=== PATIENT | female | born 1945 | race Caucasian/White ===

== ENCOUNTER 2017-10-30 13:27 | Inpatient (IN) ==
[2017-10-30] MEDS ORDERED: Aminoglycoside Consult 1 EACH MC ONE (14:56)
[2017-10-30] MEDS ORDERED: *HR* LORazepam 2 MG/ML VIAL IVP PRN (16:04)
[2017-10-30] MEDS ORDERED: Dextrose Gel 15 GM/37.5 ML TUBE PO PRN ×2 (16:08)
[2017-10-30] MEDS ORDERED: *HR* Dextrose 50 % in Water (Syg) 50 ML SYRINGE IVP PRN (16:08)
[2017-10-30] MEDS ORDERED: D5% in Water 1,000 ML IVC PRN (16:08)
[2017-10-30 16:14] LABS: INR 1.8; Prothrombin Time 19.5 Seconds (9.4-12.1)
[2017-10-30 16:17] LABS: Activated Partial Thrombo Time 27.1 Seconds (26.0-36.0)
--- NOTE | 2017-10-30 16:27 | Internal Med History&Physical ---
Date of Encounter: 10/30/17 Time of Encounter: 15:27 Internal Medicine - H&P: HPI Admitted From: Intrahospital Transfer Plans for Post Hospital Care: Home History of present illness: Ms. Willis is a 72 year old woman transferred from [facility] ER with worsening SOB and a RLL PNA and large right pleural effusion. She has been afebrile but has a WBC > 27K and desaturating into the 80s on RA. Her symptoms began almost one week ago and she went to Urgent care over the weekend and was given a prescription for an antibiotic but was unable to fill it because her pharmacy was closed for the weekend. Her sob was must worse today propting her to go to the ER. She was started on Levaquin prior totransfer. Her LA is elevated (3.1) and her initial troponin is also mildly elevated 0.11. Currently she is on BiPAP and awaiting a CT-Chest to further evaluate her rt-sided PNA/ Effusion. Past Med Surg Social Fam HX - Past Medical History Medical history: asthma, diabetes, GERD, hypertension, other Psychiatric history: no psych history - Social History Smoking Status: Former smoker Smokeless Tobacco Status: No Alcohol use: none Drug use: none - Family History Brother Hx Family Cardiac Disorders: Yes Internal Medicine - H&P: Meds Benzonatate [Tessalon] 100 mg PO TID #20 capsule 10/28/17 [Rx] Clindamycin [Cleocin] 300 mg PO TID #50 capsule 10/28/17 [Rx] Albuterol Neb [Proventil Neb] 2.5 mg IH Q6H PRN 10/30/17 [History] Albuterol Sulfate [Albuterol Inhaler] 2 puff IH QID PRN 10/30/17 [History] Aspirin [Lo-Dose Aspirin EC] 81 mg PO DAILY 10/30/17 [History] Cholecalciferol (Vitamin D3) [Vitamin D3] 5,000 unit PO QWEEK 10/30/17 [History] Liraglutide [Victoza 3-Kelvin] 1.2 mg PO DAILY 10/30/17 [History] Lisinopril 2.5 mg PO DAILY 10/30/17 [History] Meclizine HCl [Verticalm] 25 mg PO DAILY PRN 10/30/17 [History] Ranitidine HCl [Acid Food Service Lead] 150 mg PO BID PRN 10/30/17 [History] Sertraline [Zoloft] 50 mg PO DAILY 10/30/17 [History] methylPREDNISolone [Medrol] 4 mg PO PER PKG DI 10/30/17 [History] 3 Allergy/AdvReac Type Severity Reaction Status Date / Time Amoxicillin [From Augmentin] Allergy Rash Verified 10/30/17 10:40 azithromycin Allergy Hives Verified 10/30/17 10:40 cephalexin Allergy Rash Verified 10/30/17 10:40 clavulanic acid Allergy Rash Verified 10/30/17 10:40 [From Augmentin] doxycycline Allergy Rash Verified 10/30/17 10:40 omeprazole Allergy Rash Verified 10/30/17 10:40 All Systems PM: A 10-system review of systems was performed and is negative for pertinent findings except as documented above in the HPI. - Constitutional Constitutional: chills, malaise, no fever(s) - EENT Eyes: no blurry vision, no diplopia, no pain Nose, mouth and throat: mouth lesions, no dry mouth, no epistaxis, no mouth pain , no sore throat - Cardiovascular Cardiovascular ROS IM: no chest pain, no diaphoresis, no palpitations - Musculoskeletal Musculoskeletal ROS IM: no joint swelling, no myalgias - Integumentary Integumentary IM: no rash, no unusual bruising - Neurological Neurological ROS: no abnormal speech, no behavioral changes, no vertigo, no weakness - Psychiatric Psychiatric: no mood swings, no paranoia - Constitutional Vitals: Temp Pulse Resp BP Pulse Ox 98.0 F 110 21 177/91 96 10/30/17 15:00 10/30/17 15:00 10/30/17 15:30 10/30/17 15:30 10/30/17 15:30 General appearance: Present: cooperative, mild distress, A&O X 3 - Head Head exam: Present: atraumatic, normocephalic - Neck Neck exam general surgery: Present: supple, trachea midline. Absent: lymphadenopathy, nuchal rigidity - Respiratory Respiratory exam: Present: decreased breath sounds, CTAB. Absent: accessory muscle use, rales, rhonchi, wheezes Additional comments: Decreased breath sounds on right from mid-lung field down. - Cardiovascular Cardiovascular exam: Present: +S1, +S2, tachycardia. Absent: diastolic murmur, gallop, irregular rhythm, rubs, systolic murmur - GI/Abdominal GI/Abdominal exam: Present: normal bowel sounds, soft, no peritoneal signs. Absent: distended, firm, guarding, rigid, tenderness - External exam: Absent: ecchymosis, erythema - Assessment and plan (1) Right lower lobe pneumonia Current Visit: Yes Status: Acute Assessment and plan: Adm to ICU Broaden Abx coverage to Levaquin plus Vanc Abx allergies Blood cultures pending Repeat LA pending CT-Chest ordered per IR IR conulted for possible thoracentesis Continue Bipap Sputum culture pending Repeat CBC and BMP Tessalon for cough Qualifiers: Pneumonia type: due to unspecified organism Qualified Code(s): J18.1 - Lobar pneumonia, unspecified organism (2) Pleural effusion, right Current Visit: Yes Status: Acute Assessment and plan: CT-Chest ordered to further evaluate Stop IVFs IR consulted LAsix 40 mg IVP q12 Code(s): J90 - Pleural effusion, not elsewhere classified (3) Elevated troponin I level Current Visit: No Status: Acute Assessment and plan: Per pt. no hx of CAD and no chest pain Troponin leak associated with sepsis vs ACS Continue telemetry and trend troponins ECG ordered (4) Sepsis syndrome Current Visit: Yes Status: Acute Assessment and plan: Antibiotics and cultures as noted above. Repeat Lactic acid ordered SNOMED Code(s): 847689497 (5) Diabetes Current Visit: No Status: Chronic Assessment and plan: T2DM on insulin While NPO in BiPAP continue q6 hr accuchecks and Q6 hr SSI with Humalog Qualifiers: Diabetes mellitus type: type 2 Diabetes mellitus terminal carman insulin use: unspecified fpc insulin use status Diabetes mellitus complication status : with unspecified complications Qualified Code(s): E11.8 - Type 2 diabetes mellitus with unspecified complications - Time Spent With Patient Total time spent is greater than 50% in coordination of care (as documented) at patient's floor/unit and/or counseling patient: Greater than 35 minutes
[2017-10-30] MEDS ORDERED: Famotidine 20 MG TABLET PO PRN ×2 (17:13→17:30)
[2017-10-30] MEDS ORDERED: Ipratropium/Albuterol Neb 3 ML IH PRN (17:15)
[2017-10-30] MEDS ORDERED: Famotidine 20 MG TABLET PO SCH (17:30)
[2017-10-30] MEDS ORDERED: *HR* Heparin 5,000 UNIT/ML VIAL IVP ONE (17:54)
[2017-10-30] MEDS ORDERED: *HR* Heparin 5,000 UNIT/ML VIAL IVP PRN ×2 (17:54)
[2017-10-30] MEDS ORDERED: Heparin 25,000 UNIT/500 ML D5W 25,000 UNIT/500 ML BAG IVC SCH (18:00)
[2017-10-30] MEDS: Insulin LISPRO 300 UNITS/3 ML VIAL SQ SCH (18:48)
[2017-10-30 19:17] LABS: Red Cell Distribution Width 13.2 % (11.5-14.5)
[2017-10-30 19:19] LABS: Hematocrit 38.7 % (35.3-44.9); Hemoglobin 13.4 g/dL (11.5-15.4); Mean Corpuscular HGB Conc 34.6 g/dL (31.6-35.5); Mean Corpuscular Hemoglobin 29.8 pg (28.0-33.3); Mean Platelet Volume 11.3 fL (9.4-12.4); Platelet Count 208 K/mcL (140-400)
[2017-10-30] MEDS: Furosemide 40 MG/4 ML VIAL IVP SCH (21:24)
[2017-10-30] MEDS ORDERED: *HR* Metoprolol 5 MG/5 ML VIAL IVP PRN (21:34)
[2017-10-31 02:25] LABS: Red Cell Distribution Width 13.3 % (11.5-14.5)
[2017-10-31 02:27] LABS: Hemoglobin 12.7 g/dL (11.5-15.4); Mean Corpuscular HGB Conc 33.4 g/dL (31.6-35.5); Mean Corpuscular Hemoglobin 29.4 pg (28.0-33.3); Mean Platelet Volume 10.9 fL (9.4-12.4); Platelet Count 210 K/mcL (140-400); Red Blood Count 4.32 M/mcL (3.82-4.97)
[2017-10-31 02:35] LABS: Activated Partial Thrombo Time 30.3 Seconds (26.0-36.0)
[2017-10-31 02:48] LABS: Alanine Aminotransferase 17 Units/L (7-52); Albumin 2.8 g/dL (3.5-5.7); Albumin/Globulin Ratio 0.9 (1.1-2.2); Alkaline Phosphatase 140 Units/L (34-104); Aspartate Amino Transferase 31 Units/L (13-39); BUN/Creatinine Ratio 41 (6-26); Bilirubin,Total 2.5 mg/dL (0.3-1.0); Blood Urea Nitrogen 33 mg/dL (8-23); Calcium 8.8 mg/dL (8.6-10.3); Carbon Dioxide 22 mEq/L (23-29); Chloride 104 mEq/L (98-107); Globulin 3.2 g/dL (2.4-3.5); Glucose 153 mg/dL (70-105); Osmolality,Calculated 298 (280-300); Potassium 3.1 mEq/L (3.5-5.1); Sodium 139 mEq/L (136-145); eGFR For African Americans > 60 (> 60); eGFR For Non-African Americans > 60 (> 60)
[2017-10-31] MEDS: Insulin LISPRO 300 UNITS/3 ML VIAL SQ SCH ×5 (03:01→23:57)
[2017-10-31] MEDS: Furosemide 40 MG/4 ML VIAL IVP SCH (08:48)
[2017-10-31] MEDS ORDERED: Aspirin Enteric Coated 81 MG Tablet PO SCH (09:00)
[2017-10-31] MEDS ORDERED: Cholecalciferol (D-3) 1,000 UNIT TABLET PO SCH (09:00)
[2017-10-31] MEDS ORDERED: Levofloxacin 750 MG/150 ML 750 MG/150 ML BAG IVPB SCH (09:00)
[2017-10-31] MEDS ORDERED: (Liraglutide [Victoza 3-Pak] 1.2 MG) PO SCH (09:00)
[2017-10-31] MEDS ORDERED: Potassium Phosphate 44 MEQ in 0.9 % Sodium Chloride 250 ML IVPB PRN ×2 (09:37→14:18)
--- NOTE | 2017-10-31 09:44 | Internal Med Progress Note ---
Date of Encounter: 10/31/17 Time of Encounter: 09:41 - Assessment and plan (1) Acute respiratory failure with hypoxia Current Visit: Yes Status: Acute Assessment and plan: Due to pneumonia and pleural effusion. On BiPAP at this time. Remains in distress. Consult pulmonology for further evaluation and management. Monitor vital signs closely. High risk for complications. Patient is in a critical condition and at risk for sudden clinical deterioration. (2) Sepsis syndrome Current Visit: Yes Status: Acute Assessment and plan: Severe sepsis. Lactic acid improved. Patient remains dyspneic. Leukocytosis still present. Currently in A. fib with RVR. SNOMED Code(s): 780045544 (3) Right lower lobe pneumonia Current Visit: Yes Status: Acute Assessment and plan: Patient presenting with right lower lobe pneumonia with loculated pleural effusion concerning for empyema. On vancomycin and Levaquin. Leukocytosis still present. Lactic acid improved. Consulted pulmonology and patient probably needs chest tube placement. 2 sets of blood cultures positive for gram -positive cocci-strep pneumoniae likely. High risk for complications. Qualifiers: Pneumonia type: due to Pneumococcus Qualified Code(s): J13 - Pneumonia due to Streptococcus pneumoniae (4) Pleural effusion, right Current Visit: Yes Status: Acute Assessment and plan: Right-sided loculated pleural effusion concerning for empyema. Patient most likely needs chest tube placement. Code(s): J90 - Pleural effusion, not elsewhere classified (5) Elevated troponin I level Current Visit: Yes Status: Acute Assessment and plan: Trending down. Most likely from demand ischemia and hypoxia. Troponin 0.07 at this time. Cardiology consulted. Patient is on IV heparin drip. No chest pain at this time. (6) Diabetes Current Visit: Yes Status: Chronic Assessment and plan: Blood sugars are well controlled. Continue current management. Sliding scale insulin Qualifiers: Diabetes mellitus type: type 2 Diabetes mellitus mcfp insulin use: unspecified terminal operations manager insulin use status Diabetes mellitus complication status : with unspecified complications Qualified Code(s): E11.8 - Type 2 diabetes mellitus with unspecified complications (7) Atrial fibrillation with rapid ventricular response Current Visit: Yes Status: Acute Assessment and plan: Patient developed A. fib with RVR. Did not respond to IV Lopressor. Will start patient on IV diltiazem drip. Cardiology consulted. On IV heparin for anticoagulation. - Time Spent With Patient Total time spent is greater than 50% in coordination of care (as documented) at patient's floor/unit and/or counseling patient: - Constitutional Vitals: Temp Pulse Resp BP Pulse Ox 96.9 F L 149 26 97/78 94 10/31/17 08:00 10/31/17 08:00 10/31/17 08:00 10/31/17 08:00 10/31/17 08:00 General appearance: Present: cooperative, mild distress, A&O X 3 Internal Medicine: Result - Labs CBC & Chem 7: 10/31/17 02:18 10/31/17 02:18 Labs: Short CBC 10/30/17 10/31/17 Range/Units 19:01 02:18 WBC 31.1 H* 31.2 H* (4.3-11.1) K/mcL Hgb 13.4 12.7 (11.5-15.4) g/dL Hct 38.7 38.0 (35.3-44.9) % Plt Count 208 210 (140-400) K/mcL BMP 10/31/17 02:18 Sodium 139 Potassium 3.1 L Chloride 104 Carbon Dioxide 22 L BUN 33 H Creatinine 0.81 Glucose 153 H Calcium 8.8 Cardiac Enzymes 10/30/17 10/30/17 10/31/17 Range/Units 16:15 22:08 02:18 Troponin I 0.09 H* 0.07 H* 0.07 H* (< 0.04) ng/mL Liver Function 10/31/17 Range/Units 02:18 Total Bilirubin 2.5 H (0.3-1.0) mg/dL AST 31 (13-39) Units/L ALT 17 (7-52) Units/L Alkaline Phosphatase 140 H (34-104) Units/L Albumin 2.8 L (3.5-5.7) g/dL - ABG Interpretation ABG results: PT/INR, D-dimer PT 19.5 Seconds (9.4-12.1) H 10/30/17 15:53 - Impressions Impressions Chest CT 10/30/17 17:00 IMPRESSION: Loculated large right pleural effusion. Diffuse consolidative airspace disease throughout the majority of the right lower lobe. This is indeterminate and could represent pneumonia, however malignancy not excluded. If thoracentesis is performed, consider sending for cytology in addition to other fluid analysis. Mediastinal and hilar lymphadenopathy, presumably reactive though indeterminate. Partially imaged mesenteric soft tissue mass. Recommend dedicated CT abdomen and pelvis with contrast. Critical results were called by Dr. Ke Vital to Dr. Chidi Chavis on 10/30/2017 at 1800 hours. D/ / 10/30/2017 17:51:46 Ke Vital / ariane Interpreting Provider: Ke Vital Echocardiogram 10/31/17 17:58 Impressions: LVEF 60-65%. LV endocardial border not well visualized in all windows. Consider repeat Limited study with Imaging Enhancement when clinical status improves. Mild left ventricular diastolic dysfunction. Normal right ventricular size. Hyperdynamic function. Mild mitral regurgitation. Mild tricuspid regurgitation. No pulmonary hypertension by TR gradient. IVC is not well visualized. Left Ventricular Wall Motion: Rest Echo Findings All wall segments showed normal motion. Findings: Study Quality * Technically challenging windows - patient on BiPAP in ICU. ECG Findings * Normal sinus rhythm. Left Ventricle * LVEF 60-65%. * Normal LV chamber size, wall thickness and function. * Mild left ventricular diastolic dysfunction. Right Ventricle * Normal right ventricular size. Hyperdynamic function. Left Atrium * Normal left atrial size. Right Atrium * Normal right atrial size. Mitral Valve * Normal mitral valve structure. * No mitral stenosis. * Mild mitral regurgitation. Aortic Valve * No aortic regurgitation. * Aortic valve not well visualized. * No aortic stenosis. Pulmonic Valve * Pulmonic valve is not well visualized. * No pulmonic stenosis. * No pulmonic regurgitation. Tricuspid Valve * Tricuspid valve not well visualized. * Mild tricuspid regurgitation. Pulmonary Artery * Pulmonary artery not well visualized. Aorta * Normally sized aortic root. * Proximal descending aorta is not well visualized. Interatrial Septum * Interatrial septum not well evaluated. Pericardium * There is no pericardial effusion present. IVC * The IVC is not well evaluated. Consult Discharge Plan - Plan Referrals: Melo Vega DO [Primary Care Provider] -
[2017-10-31] MEDS ORDERED: Heparin 25,000 UNIT/500 ML D5W 25,000 UNIT/500 ML BAG IVC SCH (09:45)
[2017-10-31] MEDS ORDERED: methylPREDNISolone 125 MG/2 ML VIAL IVP ONE (09:50)
[2017-10-31] MEDS ORDERED: cefTRIAXone 1,000 MG in Water for inj. (sterile) 20 ML 10 ML IVP SCH (10:00)
--- NOTE | 2017-10-31 10:03 | Pulmonology Consult Note ---
<Marcus Greco - Last Filed: 10/31/17 14:46> Date of Encounter: 10/31/17 Time of Encounter: 10:03 Assessment and Plan (1) Sepsis Current Visit: Yes Status: Acute presented with respiratory distress found to be tachycardic, tachypneic, afebrile, with leukocytosis 31 secondary to pneumonia/pleural effusion - started on empirical antibiotic Vanc and Levaquin blood culture x2 (10/30) - strep pneumo - de-escalated antimicrobial coverage to only Ceftriaxone 2g DAILY on 10/31 initial lactate 3.1, recent 1.7 found to be afib c RVR, mild hypotension but has not required vasopressors continue to monitor Qualifiers: Sepsis type: Streptococcus group B Qualified Code(s): A40.1 - Sepsis due to streptococcus, group B (2) Pleural effusion, right Current Visit: Yes Status: Acute pleural effusion vs. empyema CT chest (10/30) - demonstrated large loculated effusion concern for empyema and diffuse consolidative airspace disease, cannot exclude malignancy chest tube placed by IR - continue tube management on suction without air leak pleural fluid analysis pending strep pneumonia bacteremia (3) Bacteremia due to Streptococcus pneumoniae Current Visit: Yes Status: Acute blood culture x2 (10/30) - grew strep pneumonia Ceftriaxone 2g daily - medical record reveals allergy to Amoxicillin and Keflex, spoke with Pharmacy , since the side chain moiety are different there is not a significant cross- reactivity to Ceftriaxone - will continue to monitor for any allergic reactions (4) Acute respiratory failure with hypoxia Current Visit: Yes Status: Acute secondary to right pleural effusion and pneumonia discontinue Vancomycin and Levaquin, start Ceftriaxone for strep pneumonia bacteremia - blood culture sensitivities pending continue BiPAP as needed - after chest tube placement tolerating oxymask with good oxygen saturation >92% IR consulted for chest tube placement - immediate 300 cc pus drainage - pleural fluid analysis pending no air leak in chest tube, continue on suction continuous pulse oximtery monitoring (5) Right lower lobe pneumonia Current Visit: Yes Status: Acute plan as above Qualifiers: Pneumonia type: due to Pneumococcus Qualified Code(s): J13 - Pneumonia due to Streptococcus pneumoniae (6) Atrial fibrillation with rapid ventricular response Current Visit: Yes Status: Acute given Cardizem 10 mg bolus and now on Cardizem drip - converted to normal sinus rhythm 80 bpm did not respond to Metoprolol cardiology consulted patient is on Heparin for anticoagulation - [id number] score 5 with stroke risk of 7.2% - Heparin was momentarily held for chest tube placement continue to monitor (7) Elevated troponin I level Current Visit: Yes Status: Acute likely secondary to demand ischemia trop adynamic with peak of 0.11, recent 0.07 cardiology consulted ECHO 10/31/2017 EF 60-65% with mild LV diastolic dysfunction Echocardiogram 10/31/17 17:58 Impressions: LVEF 60-65%. LV endocardial border not well visualized in all windows. Consider repeat Limited study with Imaging Enhancement when clinical status improves. Mild left ventricular diastolic dysfunction. Normal right ventricular size. Hyperdynamic function. Mild mitral regurgitation. Mild tricuspid regurgitation. No pulmonary hypertension by TR gradient. IVC is not well visualized. 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 insulin use: unspecified nursing home insulin use status Diabetes mellitus complication status : with unspecified complications Qualified Code(s): E11.8 - Type 2 diabetes mellitus with unspecified complications (9) Mesenteric mass Current Visit: Yes Status: Acute visualized on CT chest 10/30, recommended dedicated CT abd/pelvis with contrast to better evaluate CT ordered and pending (10) DVT prophylaxis Current Visit: Yes Status: Acute Heparin for ACS and anticoagulation for afib History of Present Illness Consult date: 10/31/17 Requesting physician: Becka Munoz Reason for consult: pneumonia, pleural effusion Chief complaint: pneumonia, pleural effusion History of present illness: Armida is a 72-year-old female history of diabetes, hypertension who was transferred to the intensive care unit for respiratory distress secondary to large right pleural effusion and pneumonia. Pulmonology in critical care service consulted for further management. Patient was initially admitted on 10/30/2017 for worsening shortness of breath. She was afebrile but had a large leukocytosis greater than 27,000. She was found to be hypoxic on room air. Also she was tachycardic and tachypneic meeting SIRS criteria. CT chest revealed large right loculated pleural effusion with concerning findings of pneumonia versus malignancy. Patient was found to have a lactate of 3.1 and a elevated troponin 0.11. She was also atrial fibrillation with rapid ventricular response. During her short hospital stay she received initial dose of metoprolol for her rate without effect. She was given a bolus of Cardizem and placed on the drip. She converted to normal sinus and then reverted back to atrial fibrillation with RVR. For concern of sepsis she was placed on Levaquin and vancomycin. Blood cultures work sent and have grown strep pneumonia. She otherwise is in mild respiratory distress requiring BiPAP. She is scheduled with interventional radiology for a chest tube. Cardiology has been consulted and she does not have a history of coronary arterial disease. Past Med Surg Social Fam HX - Past Medical History Medical history: asthma, diabetes, GERD, hypertension, other Psychiatric history: no psych history - Social History Smoking Status: Former smoker Smokeless Tobacco Status: No Alcohol use: none Drug use: none - Family History Brother Hx Family Cardiac Disorders: Yes Medications and Allergies Benzonatate [Tessalon] 100 mg PO TID #20 capsule 10/28/17 [Rx] Clindamycin [Cleocin] 300 mg PO TID #50 capsule 10/28/17 [Rx] Albuterol Neb [Proventil Neb] 2.5 mg IH Q6H PRN 10/30/17 [History] Albuterol Sulfate [Albuterol Inhaler] 2 puff IH QID PRN 10/30/17 [History] Aspirin [Lo-Dose Aspirin EC] 81 mg PO DAILY 10/30/17 [History] Cholecalciferol (Vitamin D3) [Vitamin D3] 5,000 unit PO QWEEK 10/30/17 [History] Liraglutide [Victoza 3-Kelvin] 1.2 mg PO DAILY 10/30/17 [History] Lisinopril 2.5 mg PO DAILY 10/30/17 [History] Meclizine HCl [Verticalm] 25 mg PO DAILY PRN 10/30/17 [History] Ranitidine HCl [Acid Full Stack Java Developer] 150 mg PO BID PRN 10/30/17 [History] Sertraline [Zoloft] 50 mg PO DAILY 10/30/17 [History] methylPREDNISolone [Medrol] 4 mg PO PER PKG DI 10/30/17 [History] 3 Allergy/AdvReac Type Severity Reaction Status Date / Time Amoxicillin [From Augmentin] Allergy Rash Verified 10/30/17 10:40 azithromycin Allergy Hives Verified 10/30/17 10:40 cephalexin Allergy Rash Verified 10/30/17 10:40 clavulanic acid Allergy Rash Verified 10/30/17 10:40 [From Augmentin] doxycycline Allergy Rash Verified 10/30/17 10:40 omeprazole Allergy Rash Verified 10/30/17 10:40 All Systems: The remainder of the systems were reviewed and are negative Physical Examination Vital Signs: Vital Signs, Last 4 Hours Temp Pulse Resp BP Pulse Ox 10/31/17 08:00 96.9 F L 149 26 97/78 94 10/31/17 07:59 96.9 F L General appearance: alert, other (mild respiratory distress) Eyes: nonicteric ENT: oropharynx moist Neck: supple Effort: mildly labored Auscultation: right: diminished breath sounds, rhonchi, bilateral: rales Cardiovascular: regular rate and rhythm (rate controlled) Gastrointestinal: normoactive bowel sounds, soft, non-tender, non-distended Integumentary: normal Extremities: no cyanosis, no edema, no clubbing, pink and warm, pulses normal, no ischemia or petechiae Musculoskeletal: no deformities normal mental status, non-focal exam, pupils equal and round, motor strength normal and symmetric affect normal, anxious Results - Laboratory Findings CBC and BMP: 10/31/17 02:18 10/31/17 02:18 PT/INR, D-dimer PT 19.5 Seconds (9.4-12.1) H 10/30/17 15:53 Abnormal lab findings: Abnormal lab results WBC 31.2 K/mcL (4.3-11.1) H* 10/31/17 02:18 PT 19.5 Seconds (9.4-12.1) H 10/30/17 15:53 Potassium 3.1 mEq/L (3.5-5.1) L 10/31/17 02:18 Carbon Dioxide 22 mEq/L (23-29) L 10/31/17 02:18 BUN 33 mg/dL (8-23) H 10/31/17 02:18 BUN/Creatinine Ratio 41 (6-26) H 10/31/17 02:18 Glucose 153 mg/dL (70-105) H 10/31/17 02:18 POC Glucose 139 mg/dL (58-89) H 10/30/17 23:42 Total Bilirubin 2.5 mg/dL (0.3-1.0) H 10/31/17 02:18 Alkaline Phosphatase 140 Units/L (34-104) H 10/31/17 02:18 Troponin I 0.07 ng/mL (< 0.04) H* 10/31/17 02:18 B-Natriuretic Peptide 344 pg/mL (Less than 100) H 10/30/17 16:10 Serum Total Protein 6.0 g/dL (6.4-8.9) L 10/31/17 02:18 Albumin 2.8 g/dL (3.5-5.7) L 10/31/17 02:18 Albumin/Globulin Ratio 0.9 (1.1-2.2) L 10/31/17 02:18 - Clinical Findings Intake & Output: Intake & Output 10/30/17 10/31/17 10/31/17 23:59 07:59 15:59 Intake Total 260 / 260 155 / 155 Output Total 500 / 500 875 / 875 Balance -240 / -240 -720 / -720 Weight 81.4 kg 81.4 kg Consult Discharge Plan - Plan Referrals: Melo Vega DO [Primary Care Provider] - <Markell Nolasco - Last Filed: 10/31/17 15:11> Date of Encounter: 10/31/17 All Systems: The remainder of the systems were reviewed and are negative Physical Examination Vital Signs: Vital Signs, Last 4 Hours Temp Pulse Resp BP Pulse Ox 10/31/17 14:15 85 16 123/82 97 10/31/17 13:00 83 16 131/71 97 10/31/17 12:53 83 10/31/17 12:03 96.9 F L 10/31/17 12:00 96.9 F L 83 16 123/75 96 Results - Laboratory Findings CBC and BMP: 10/31/17 02:18 10/31/17 02:18 ABG ABG pH 7.31 pH Units (7.32-7.45) L 10/31/17 10:16 ABG pCO2 47 mmHg (35-45) H 10/31/17 10:16 ABG pO2 84 mmHg (85-104) L 10/31/17 10:16 ABG O2 Saturation 95 % (95-98) 10/31/17 10:16 PT/INR, D-dimer PT 16.9 Seconds (9.4-12.1) H 10/31/17 02:18 Abnormal lab findings: Abnormal lab results WBC 31.2 K/mcL (4.3-11.1) H* 10/31/17 02:18 PT 16.9 Seconds (9.4-12.1) H 10/31/17 02:18 ABG pH 7.31 pH Units (7.32-7.45) L 10/31/17 10:16 ABG pCO2 47 mmHg (35-45) H 10/31/17 10:16 ABG pO2 84 mmHg (85-104) L 10/31/17 10:16 ABG Base Excess -4 mEq/L (-2 to 3) L 10/31/17 10:16 Potassium 3.1 mEq/L (3.5-5.1) L 10/31/17 02:18 Carbon Dioxide 22 mEq/L (23-29) L 10/31/17 02:18 BUN 33 mg/dL (8-23) H 10/31/17 02:18 BUN/Creatinine Ratio 41 (6-26) H 10/31/17 02:18 Glucose 153 mg/dL (70-105) H 10/31/17 02:18 POC Glucose 139 mg/dL (58-89) H 10/30/17 23:42 Total Bilirubin 2.5 mg/dL (0.3-1.0) H 10/31/17 02:18 Alkaline Phosphatase 140 Units/L (34-104) H 10/31/17 02:18 Troponin I 0.07 ng/mL (< 0.04) H* 10/31/17 02:18 B-Natriuretic Peptide 397 pg/mL (Less than 100) H 10/31/17 10:52 Serum Total Protein 5.7 g/dL (6.4-8.9) L 10/31/17 13:44 Albumin 2.8 g/dL (3.5-5.7) L 10/31/17 02:18 Albumin/Globulin Ratio 0.9 (1.1-2.2) L 10/31/17 02:18 Pleural RBC 0.005 M/mcL (0.000-0.002) H 10/31/17 13:09 Pleural Tot Nuc Cell > 65791 TNC/mcL (0-1000) H 10/31/17 13:09 - Clinical Findings Intake & Output: Intake & Output 10/30/17 10/31/17 10/31/17 23:59 07:59 15:59 Intake Total 260 / 260 155 / 155 300 / 300 Output Total 500 / 500 875 / 875 1050 / 1050 Balance -240 / -240 -720 / -720 -750 / -750 Weight 81.4 kg 81.4 kg - Attending Attestation I examined this patient and my medical decision-making was reviewed with the Resident Physician. I agree with the documented findings, disposition and treatment plan as described except to the extent set forth below. We independently had [id number] contact with the patient I spent 33min of Critical Care time with this patient. It involved decision making of high complexity to assess, manipulate, and support vital organ system failure and/or to prevent further life threatening deterioration of the patient' s condition. The time involved in the performance of separately reportable procedures was not counted toward critical care time. Patient seen and examined at bedside Labs, radiology, chart personally reviewed. Management was reviewed during multidisciplinary critical care rounds. FISH WORM GROWER: Mild encephalopathy but she remains able to follow commands and protect airway she is received benzodiazepine earlier in the day which we will avoid as as much as possible going forward Pulm: Acute hypoxic hypercarbic respiratory failure secondary to lobar pneumonia complicated by hydrostatic pulmonary edema she is currently tolerating noninvasive ventilation but has high risk of deterioration to intubation and mechanical ventilation. ABG shows acceptable gas exchange. Patient also has history of underlying COPD for which we will give bronchodilators and steroids (along for severe CAP) Cards: Acute A. fib with RVR with hypertension responding to calcium channel bruno infusion. She has hydrostatic pulmonary edema with the elevated BNP for which we will start diuresis as permitted by blood pressure and kidney function. Mild troponin elevation likely demand ischemia cardiology as evaluated the patient and she is on heparin for ACS protocol but this will be turned off as suspected type II demand ischemia is much more likely and troponin has plateaued at very low value FEN-GI: Nothing by mouth for now Renal: Urine output monitored serum creatinine electrolytes will be trended ID: Severe sepsis s/t (Lactate was elevated but has normalized now) Infectious pneumonia secondary to strep pneumonia with strep pneumoniae bacteremia. She has a large locular pleural effusion concerning for empyema versus complicated parapneumonic effusion consulting IR for smaller chest tube placement we will follow up on pleural fluid analysis. Transitioned to ceftriaxone for coverage of strep pneumonia infection Heme/Onc: We will transition from heparin infusion for DVT prophylaxis Endo: Glucose Monitored Integ/MSK: Skin Care per routine ICU Nursing Protocol to prevent ulcers. Lines: All lines examined without evidence of infection : Dispo: Remain in ICU for critical illness CODE: Full code I updated the patient's to adult sisters and her son in the ICU she has a daughter that we will be coming from work later in the afternoon
[2017-10-31 10:17] LABS: INR 1.6; Prothrombin Time 16.9 Seconds (9.4-12.1)
[2017-10-31 10:22] LABS: ABG Base Excess -4 mEq/L (-2 to 3); ABG HCO3 23 mEq/L (21-27); ABG Oxygen Saturation 95 % (95-98); ABG PCO2 47 mmHg (35-45); ABG PH 7.31 pH Units (7.32-7.45); ABG PO2 84 mmHg (85-104); ABG TCO2 25 mEq/L (20-26)
--- NOTE | 2017-10-31 10:26 | Cardiology Consult Note ---
<Autumn Coronel - Last Filed: 10/31/17 11:40> Date of Encounter: 10/31/17 Time of Encounter: 10:23 Assessment and Plan (1) Sepsis syndrome Current Visit: Yes Status: Acute Sepsis secondary to RLL pneumonia and right pleural effusion. lactic acid 3.1, 1.7 -on antibiotics (2) Pleural effusion, right Current Visit: Yes Status: Acute Chest CT demonstrated large loculated right pleural effusion. Concern for empyema. -thoracentsis is ordered (3) Elevated troponin I level Current Visit: Yes Status: Acute Likely secondary to demand ischemia in setting of sepsis troponin 0.11, 0.09, 0.07, 0.07 trending down 10/31/2017 TTE: LVEF 60-65% mild LV diastolic dysfunction -BNP ordered (4) Atrial fibrillation with rapid ventricular response Current Visit: Yes Status: Acute 10/31/2017 EKG demostrated A.fib RVR HR 164 CHADSVASC score: 4 (age, female, HTN, DM) -currently on cardizem drip -repeat EKG -was on heparin but stopped since patient is going to get thoracentesis (5) Right lower lobe pneumonia Current Visit: Yes Status: Acute RLL pneumonia demonstrated by chest CT -on BIPAP -currently being treated with vancomycin and levaquin Qualifiers: Pneumonia type: due to Pneumococcus Qualified Code(s): J13 - Pneumonia due to Streptococcus pneumoniae Discussion w patient/family: The assessment and plan as outlined above was discussed with the patient and/or family members who expressed understanding and agreement. All questions were answered. Thank you for involving us in the care of your patient. Please call with any questions. History of Present Illness Consult date: 10/31/17 Requesting physician: Chidi Chavis Consult reason: elevated troponin Chief complaint: shortness of breath History of present illness: Ms. Willis is a 72 year old female PMH HTN, DM, asthma who presented to [facility] as a transfer from [facility] due to worsened shortness of breath, RLL PNA , and large right pleural effusion. She was found to be septic with WBC 31.2, lactic acid 3.1. She had an elevated troponin 0.11. She had increased shortness of breath for 1 week and went to an urgent care and was prescribed an antibiotic but was unable to fill due to pharmacy was closed. She worsened and came to ED. She is alongside her sisters and son who are able to give history since the patient is on bipap and unable to talk. Admitted cough. She denied chest pain, palpitations, chills, syncope, orthopnea, edema. Chest CT demostrated RLL pneumonia and large loculated right pleural effusion. EKG demonstrated a.fib with RVR HR 164. Past Med Surg Social Fam HX - Past Medical History Medical history: asthma, diabetes, GERD, hypertension, other Psychiatric history: no psych history - Social History Smoking Status: Former smoker Smokeless Tobacco Status: No Alcohol use: none Drug use: none - Family History Brother Hx Family Cardiac Disorders: Yes Medications and Allergies Benzonatate [Tessalon] 100 mg PO TID #20 capsule 10/28/17 [Rx] Clindamycin [Cleocin] 300 mg PO TID #50 capsule 10/28/17 [Rx] Albuterol Neb [Proventil Neb] 2.5 mg IH Q6H PRN 10/30/17 [History] Albuterol Sulfate [Albuterol Inhaler] 2 puff IH QID PRN 10/30/17 [History] Aspirin [Lo-Dose Aspirin EC] 81 mg PO DAILY 10/30/17 [History] Cholecalciferol (Vitamin D3) [Vitamin D3] 5,000 unit PO QWEEK 10/30/17 [History] Liraglutide [Victoza 3-Kelvin] 1.2 mg PO DAILY 10/30/17 [History] Lisinopril 2.5 mg PO DAILY 10/30/17 [History] Meclizine HCl [Verticalm] 25 mg PO DAILY PRN 10/30/17 [History] Ranitidine HCl [Acid Roulette Dealer] 150 mg PO BID PRN 10/30/17 [History] Sertraline [Zoloft] 50 mg PO DAILY 10/30/17 [History] methylPREDNISolone [Medrol] 4 mg PO PER PKG DI 10/30/17 [History] 3 Allergy/AdvReac Type Severity Reaction Status Date / Time Amoxicillin [From Augmentin] Allergy Rash Verified 10/30/17 10:40 azithromycin Allergy Hives Verified 10/30/17 10:40 cephalexin Allergy Rash Verified 10/30/17 10:40 clavulanic acid Allergy Rash Verified 04/03/18 10:40 [From Augmentin] doxycycline Allergy Rash Verified 10/30/17 10:40 omeprazole Allergy Rash Verified 10/30/17 10:40 All Systems Review: The remainder of the systems were reviewed and are negative - Constitutional Constitutional: fever(s), no chills, no headache(s), no weakness - EENT Eyes: no loss of vision - Cardiovascular Cardiovascular: no chest pain at rest, no chest pain with exertion, no diaphoresis, no palpitations, no syncope - Respiratory Respiratory: cough, dyspnea - Gastrointestinal Gastrointestinal: no abdominal pain, no nausea - Integumentary Integumentary: erythema - Neurological Neurological: no abnormal speech Physical Examination Vital Signs, Last 4 Hours Temp Pulse Resp BP Pulse Ox 10/31/17 08:00 96.9 F L 149 26 97/78 94 10/31/17 07:59 96.9 F L General: No Apparent Distress HEENT: Atraumatic Neck: No JVD Cardiac: Normal S1 and S2, Other (tachycardic, irregular) Lungs: Normal Breath Sounds, Other (rales in right lung b/l) Abdomen: Soft Skin: No rashes noted on visualized skin Musculoskeletal: No Chest Wall Tenderness Extremities: No Edema Results 10/31/17 02:18 10/31/17 02:18 Lab Results 10/30/17 10/30/17 10/30/17 15:53 16:10 16:15 WBC Hgb Hct Plt Count INR 1.8 APTT 27.1 Sodium Potassium Chloride Carbon Dioxide BUN Creatinine Glucose Calcium Total Bilirubin AST ALT Alkaline Phosphatase Troponin I 0.09 H* B-Natriuretic Peptide 344 H 10/30/17 10/30/17 10/31/17 19:01 22:08 02:18 WBC 31.1 H* Hgb 13.4 Hct 38.7 Plt Count 208 INR APTT Sodium Potassium Chloride Carbon Dioxide BUN Creatinine Glucose Calcium Total Bilirubin AST ALT Alkaline Phosphatase Troponin I 0.07 H* 0.07 H* B-Natriuretic Peptide 10/31/17 10/31/17 10/31/17 02:18 02:18 02:18 WBC 31.2 H* Hgb 12.7 Hct 38.0 Plt Count 210 INR 1.6 APTT 30.3 Sodium 139 Potassium 3.1 L Chloride 104 Carbon Dioxide 22 L BUN 33 H Creatinine 0.81 Glucose 153 H Calcium 8.8 Total Bilirubin 2.5 H AST 31 ALT 17 Alkaline Phosphatase 140 H Troponin I B-Natriuretic Peptide Consult Discharge Plan - Plan Referrals: Melo Vega, DO [Primary Care Provider] - <ZeferinoAnneliese andrew - Last Filed: 10/31/17 13:12> Date of Encounter: 10/31/17 - Attending Attestation I examined this patient and my medical decision-making was reviewed with the Resident Physician. I agree with the documented findings, disposition and treatment plan as described except to the extent set forth below. 72 YOF with Mx CRFs now in afib with sepsis possible empeyema. Okay to hold Heparin for drainage of empeyema and resume when stable. Likely bridge to AC on discharge when stable. Preserved EF and no RWMA, troponins non ischemic pattern likely demand ischemia. Resume rate control with IV CCB when stable and septic shock resolves. Assessment and Plan Discussion w patient/family: The assessment and plan as outlined above was discussed with the patient and/or family members who expressed understanding and agreement. All questions were answered. Thank you for involving us in the care of your patient. Please call with any questions. History of Present Illness History of present illness: Ms. Willis is a 72 year old female All Systems Review: The remainder of the systems were reviewed and are negative Physical Examination Vital Signs, Last 4 Hours Temp Pulse Resp BP Pulse Ox 10/31/17 12:53 96.9 F L 83 16 123/75 96 10/31/17 12:03 96.9 F L 10/31/17 11:00 85 19 116/65 94 10/31/17 10:00 148 19 91/75 94 Results 10/31/17 02:18 10/31/17 02:18 Lab Results 10/30/17 10/30/17 10/30/17 15:53 16:10 16:15 WBC Hgb Hct Plt Count INR 1.8 APTT 27.1 Sodium Potassium Chloride Carbon Dioxide BUN Creatinine Glucose Calcium Total Bilirubin AST ALT Alkaline Phosphatase Troponin I 0.09 H* B-Natriuretic Peptide 344 H 10/30/17 10/30/17 10/31/17 19:01 22:08 02:18 WBC 31.1 H* Hgb 13.4 Hct 38.7 Plt Count 208 INR APTT Sodium Potassium Chloride Carbon Dioxide BUN Creatinine Glucose Calcium Total Bilirubin AST ALT Alkaline Phosphatase Troponin I 0.07 H* 0.07 H* B-Natriuretic Peptide 10/31/17 10/31/17 10/31/17 02:18 02:18 02:18 WBC 31.2 H* Hgb 12.7 Hct 38.0 Plt Count 210 INR 1.6 APTT 30.3 Sodium 139 Potassium 3.1 L Chloride 104 Carbon Dioxide 22 L BUN 33 H Creatinine 0.81 Glucose 153 H Calcium 8.8 Total Bilirubin 2.5 H AST 31 ALT 17 Alkaline Phosphatase 140 H Troponin I B-Natriuretic Peptide 10/31/17 10:52 WBC Hgb Hct Plt Count INR APTT Sodium Potassium Chloride Carbon Dioxide BUN Creatinine Glucose Calcium Total Bilirubin AST ALT Alkaline Phosphatase Troponin I B-Natriuretic Peptide 397 H
--- NOTE | 2017-10-31 13:21 | IR Procedure Note ---
Date of procedure: 10/31/17 Consent Obtained: Verbal consent, Written consent Timeout: Correct patient and procedure verified, Correct site verified, Time out performed, Skin prep completed Local anesthetic: Lidocaine 1% Indications: Pleural effusion Procedure Performed: US guided chest tube placement Was there an pharmacy sales assistant present: No Site/Technique: US guided right chest tube placed Results/Findings: 10 Fr chest tube placed Estimated blood loss (cc): 1 Complications: None; Tolerated procedure well Post Procedure Treatment Plan: CXR pending Specimen: 20 cc serous fluid
[2017-10-31] MEDS ORDERED: *HR* Dextrose 50 % in Water (Syg) 50 ML SYRINGE IVP PRN (14:18)
[2017-10-31] MEDS ORDERED: Ipratropium/Albuterol Neb 3 ML IH PRN (14:18)
[2017-10-31] MEDS ORDERED: *HR* LORazepam 2 MG/ML VIAL IVP PRN (14:18)
[2017-10-31] MEDS ORDERED: *HR* Metoprolol 5 MG/5 ML VIAL IVP PRN (14:18)
[2017-10-31] MEDS ORDERED: Famotidine 20 MG TABLET PO PRN (14:18)
[2017-10-31] MEDS ORDERED: Dextrose Gel 15 GM/37.5 ML TUBE PO PRN ×2 (14:18)
[2017-10-31] MEDS ORDERED: D5% in Water 1,000 ML IVC PRN (14:18)
[2017-10-31] MEDS ORDERED: *HR* Heparin 5,000 UNIT/ML VIAL IVP PRN ×2 (14:18)
[2017-10-31 14:20] LABS: Lactate Dehydrogenase 271 Units/L (140-271); Total Protein 5.7 g/dL (6.4-8.9)
[2017-10-31 14:46] LABS: RBC,Pleural Fluid 0.005 M/mcL
[2017-10-31 15:01] LABS: Glucose,Pleural Fluid < 10 mg/dL (No Ref Range); LDH,Pleural Fluid 793 Units/L (No Ref Range); Total Protein,Pleural Fluid 4.2 g/dL (No Ref Range); Triglycerides, Pleural Fluid 101 mg/dL (No Ref Range)
[2017-10-31 15:57] LABS: Appearance of Pleural Fl Cloudy (Clear)
[2017-10-31 18:17] LABS: VBG Ionized Calcium 0.95 mmol/L (1.15-1.35)
[2017-10-31] MEDS ORDERED: *HR* FentaNYL (PF) 100 MCG/2 ML VIAL IVP ONE (18:28)
[2017-10-31 18:36] LABS: Magnesium 2.1 mg/dL (1.6-2.6); Phosphorous 7.7 mg/dL (2.7-4.5); Potassium 3.9 mEq/L (3.5-5.1)
--- NOTE | 2017-10-31 19:58 | Electrocardiograph Report ---
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
[2017-11-01 03:54] LABS: Basophils # 0.1 K/mcL (0.0-0.2); Basophils % 0.6 %; Hematocrit 35.6 % (35.3-44.9); Hemoglobin 12.2 g/dL (11.5-15.4); Immature Granulocytes % 3.9 % (0-4); Lymphocytes # 1.3 K/mcL (0.6-4.6); Lymphocytes % 5.5 %; Mean Corpuscular HGB Conc 34.3 g/dL (31.6-35.5); Mean Corpuscular Hemoglobin 29.9 pg (28.0-33.3); Mean Corpuscular Volume 87.3 fL (83.0-100.0); Mean Platelet Volume 10.9 fL (9.4-12.4); Monocytes # 0.5 K/mcL (0.0-1.3); Monocytes % 2.1 %; Neutrophils # 20.3 K/mcL (1.6-8.9); Nucleated Red Blood Cells 0.2 /100 WBC (0); Platelet Count 227 K/mcL (140-400); Red Blood Count 4.08 M/mcL (3.82-4.97); Red Cell Distribution Width 13.7 % (11.5-14.5); Segmented Neutrophils % 87.9 %
[2017-11-01 03:54] LABS: VBG Ionized Calcium 0.97 mmol/L (1.15-1.35)
[2017-11-01 04:14] LABS: BUN/Creatinine Ratio 61 (6-26); Blood Urea Nitrogen 59 mg/dL (8-23); Calcium 7.7 mg/dL (8.6-10.3); Carbon Dioxide 24 mEq/L (23-29); Chloride 104 mEq/L (98-107); Glucose 128 mg/dL (70-105); Osmolality,Calculated 314 (280-300); Potassium 3.7 mEq/L (3.5-5.1); Sodium 143 mEq/L (136-145); eGFR For African Americans > 60 (> 60); eGFR For Non-African Americans 57 (> 60)
[2017-11-01 04:16] LABS: Magnesium 2.3 mg/dL (1.6-2.6); Phosphorous 6.4 mg/dL (2.7-4.5)
[2017-11-01 04:45] LABS: Platelet Estimate Normal (Normal)
[2017-11-01] MEDS: Insulin LISPRO 300 UNITS/3 ML VIAL SQ SCH ×3 (05:11→18:58)
--- NOTE | 2017-11-01 07:20 | Pulmonology Progress Note ---
<ConstanceMarkell W - Last Filed: 11/01/17 11:05> Date of Encounter: 11/01/17 Objective PUL Vital signs: Last Vital Signs Temp 98.4 F 11/01/17 07:27 Pulse 70 11/01/17 07:38 Resp 20 11/01/17 07:00 BP 121/60 11/01/17 07:00 Pulse Ox 98 11/01/17 07:00 Results - Laboratory Findings CBC and BMP: 11/01/17 03:37 11/01/17 03:37 ABG ABG pH 7.31 pH Units (7.32-7.45) L 10/31/17 10:16 ABG pCO2 47 mmHg (35-45) H 10/31/17 10:16 ABG pO2 84 mmHg (85-104) L 10/31/17 10:16 ABG O2 Saturation 95 % (95-98) 10/31/17 10:16 PT/INR, D-dimer PT 16.9 Seconds (9.4-12.1) H 10/31/17 02:18 Abnormal lab findings: Abnormal lab results WBC 23.1 K/mcL (4.3-11.1) H 11/01/17 03:37 Neutrophils # 20.3 K/mcL (1.6-8.9) H 11/01/17 03:37 Nucleated RBCs/100 WBC 0.2 /100 WBC (0) H 11/01/17 03:37 PT 16.9 Seconds (9.4-12.1) H 10/31/17 02:18 ABG pH 7.31 pH Units (7.32-7.45) L 10/31/17 10:16 ABG pCO2 47 mmHg (35-45) H 10/31/17 10:16 ABG pO2 84 mmHg (85-104) L 10/31/17 10:16 ABG Base Excess -4 mEq/L (-2 to 3) L 10/31/17 10:16 BUN 59 mg/dL (8-23) H 11/01/17 03:37 Est GFR (Non-Af Amer) 57 (> 60) L 11/01/17 03:37 BUN/Creatinine Ratio 61 (6-26) H 11/01/17 03:37 Glucose 128 mg/dL (70-105) H 11/01/17 03:37 POC Glucose 203 mg/dL (70-99) H 10/31/17 23:54 Calculated Osmolality 314 (280-300) H 11/01/17 03:37 Calcium 7.7 mg/dL (8.6-10.3) L 11/01/17 03:37 Venous Ioniz Calcium 0.97 mmol/L (1.15-1.35) L 11/01/17 03:51 Phosphorus 6.4 mg/dL (2.7-4.5) H 11/01/17 03:37 Total Bilirubin 2.5 mg/dL (0.3-1.0) H 10/31/17 02:18 Alkaline Phosphatase 140 Units/L (34-104) H 10/31/17 02:18 Troponin I 0.07 ng/mL (< 0.04) H* 10/31/17 02:18 B-Natriuretic Peptide 397 pg/mL (Less than 100) H 10/31/17 10:52 Serum Total Protein 5.7 g/dL (6.4-8.9) L 10/31/17 13:44 Albumin 2.8 g/dL (3.5-5.7) L 10/31/17 02:18 Albumin/Globulin Ratio 0.9 (1.1-2.2) L 10/31/17 02:18 Pleural Appearance Cloudy (Clear) A 10/31/17 13:09 Pleural RBC 0.005 M/mcL (0.000-0.002) H 10/31/17 13:09 Pleural Tot Nuc Cell > 30081 TNC/mcL (0-1000) H 10/31/17 13:09 - Microbiology Findings Microbiology Findings: Microbiology, Last 48 Hours 10/30/17 16:15 Blood Culture - Preliminary Peripheral Venipuncture No growth. 10/30/17 16:15 Blood Culture - Preliminary Peripheral Venipuncture No growth. 10/31/17 13:09 Body Fluid Culture - Preliminary Pleural Fluid - Clinical Findings Intake & Output: Intake & Output 10/31/17 11/01/17 11/01/17 23:59 07:59 15:59 Intake Total 790 / 790 110 / 110 Output Total 685 / 685 240 / 240 Balance 105 / 105 -130 / -130 Weight 83.9 kg Consult Discharge Plan - Plan Referrals: Melo Vega, DO [Primary Care Provider] - - Attending Attestation I examined this patient and my medical decision-making was reviewed with the Resident Physician. I agree with the documented findings, disposition and treatment plan as described except to the extent set forth below. We independently had [id number] contact with the patient Patient seen and examined at bedside Labs, radiology, chart personally reviewed. Management was reviewed during multidisciplinary critical care rounds. 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 today with improvement in sepsis management no focal deficits Pulm: Acute respiratory failure secondary to pneumonia with COPD exacerbation continue antimicrobials bronchodilators and steroids she has acceptable oxygenation on oxygen mass today and can use BiPAP on an as-needed basis but respiratory status generally has improved since prior examination she has a left smallbore chest tube draining right empyema for which we will instill tPA today Cards: Atrial fibrillation with RVR rate controlled now cardiology following FEN-GI: Nothing by mouth for now MBS today as patient continues to choke on food despite speech evaluation yesterday Renal: Urine output monitored serum creatinine electrolytes monitored ID: Strep pneumoniae with empyema white count improving continue ceftriaxone follow-up cultures for sensitivities Heme/Onc: DVT prophylaxis given may need NOAC based upon CHADSVASC score mindy defer to cardiology Endo: Glucose Monitored Integ/MSK: Skin Care per routine ICU Nursing Protocol to prevent ulcers. Lines: All lines examined without evidence of infection : Dispo: Stable for transfer to [facility] for ongoing care CODE: Full <Marcus Greco - Last Filed: 11/01/17 11:56> Date of Encounter: 11/01/17 Time of Encounter: 07:20 Assessment and Plan (1) Sepsis Current Visit: Yes Status: Acute presented with respiratory distress found to be tachycardic, tachypneic, afebrile, with leukocytosis 31 secondary to pneumonia/empyema - started on empirical antibiotic Vanc and Levaquin - chest tube placed with drainage blood culture x2 (10/30) - strep pneumo - de-escalated antimicrobial coverage to only Ceftriaxone 2g DAILY on 10/31 initial lactate 3.1, recent 1.7 found to be afib c RVR, mild hypotension but has not required vasopressors continue to monitor DISPO: stable to transfer to [facility] for further chest tube management spoke with Dr. Munoz for acceptance of patient, no further orders at this time Qualifiers: Sepsis type: Streptococcus group B Qualified Code(s): A40.1 - Sepsis due to streptococcus, group B (2) Empyema of right pleural space Current Visit: Yes Status: Acute IR placed chest tube 10/31 pleural fluid studies consistent with empyema TPA 10mg injected into chest tube to break loculations continue chest tube management (3) Pleural effusion, right Current Visit: Yes Status: Acute empyema based on analysis studies CT chest (10/30) - demonstrated large loculated effusion concern for empyema and diffuse consolidative airspace disease, cannot exclude malignancy chest tube placed by IR - continue tube management on suction as output 660cc strep pneumonia bacteremia (4) Bacteremia due to Streptococcus pneumoniae Current Visit: Yes Status: Acute blood culture x2 (10/30) - grew strep pneumonia Ceftriaxone 2g daily - medical record reveals allergy to Amoxicillin and Keflex, spoke with Pharmacy , since the side chain moiety are different there is not a significant cross- reactivity to Ceftriaxone - will continue to monitor for any allergic reactions (5) Acute respiratory failure with hypoxia Current Visit: Yes Status: Acute secondary to right pleural effusion/empyemea and pneumonia discontinue Vancomycin and Levaquin, start Ceftriaxone for strep pneumonia bacteremia - blood culture sensitivities pending significant smoking history, suspect COPD - scheduled bronchodilators and PO steroids 40mg continue BiPAP as needed - after chest tube placement tolerating oxymask with good oxygen saturation >92% IR consulted for chest tube placement no air leak in chest tube, continue on suction continuous pulse oximtery monitoring (6) Right lower lobe pneumonia Current Visit: Yes Status: Acute plan as above Qualifiers: Pneumonia type: due to Pneumococcus Qualified Code(s): J13 - Pneumonia due to Streptococcus pneumoniae (7) Restricted diet Current Visit: Yes Status: Acute speech therapy evaluated patient at bedside - 10/31 It is recommended that patient receive an advanced soft textured diet with nectar thick liquids. Swallow therapy is recommended and speech therapy will follow up with patient - on 11/01 episode of hypoxia with diet, modified barium swallow study ordered (8) Atrial fibrillation with rapid ventricular response Current Visit: Yes Status: Acute remains in normal sinus rhythm on cardizem drip transition to Cardizem PO 30mg q6h - titrate to effect will obtain new ECG of sinus rhythm will discuss anticoagulation, denies any signs of acute bleeds [id number] score 5 with stroke risk of 7.2% - discuss with cardiology on long-term AC continue to monitor (9) Elevated troponin I level Current Visit: Yes Status: Acute likely secondary to demand ischemia trop adynamic with peak of 0.11, recent 0.07 cardiology consulted ECHO 10/31/2017 EF 60-65% with mild LV diastolic dysfunction Echocardiogram 10/31/17 17:58 Impressions: LVEF 60-65%. LV endocardial border not well visualized in all windows. Consider repeat Limited study with Imaging Enhancement when clinical status improves. Mild left ventricular diastolic dysfunction. Normal right ventricular size. Hyperdynamic function. Mild mitral regurgitation. Mild tricuspid regurgitation. No pulmonary hypertension by TR gradient. IVC is not well visualized. (10) Diabetes Current Visit: Yes Status: Chronic continue to monitor blood glucose accucheck q6h LOW insulin sliding scale Qualifiers: Diabetes mellitus type: type 2 Diabetes mellitus director long term care insulin use: unspecified correction insulin use status Diabetes mellitus complication status : with unspecified complications Qualified Code(s): E11.8 - Type 2 diabetes mellitus with unspecified complications (11) Mesenteric mass Current Visit: Yes Status: Acute visualized on CT chest 10/30, recommended dedicated CT abd/pelvis with contrast to better evaluate CT abd/pelvis c IV/PO contrast ordered by hospitalist but due to risk of aspiration, imaging HELD at this time, concerns voiced to care management team (12) DVT prophylaxis Current Visit: Yes Status: Acute Heparin Subjective Principal diagnosis: resp distress, pleural effusion v. empyema Interval history: Patient seen and examined at bedside. She had a right chest to placed yesterday with improvement of her respiratory status. Pleural fluid analysis consistent with empyema. Patient has reported some abdominal tenderness that has been ongoing prior to admission. She also reports of some back pain. She denies any chest pain or significant shortness of breath. She is coughing up less sputum than usual. Denies any nausea or vomiting. Patient is afebrile and currently undergoing ceftriaxone 2g treatment for her strep pneumonia bacteremia. She continues to be in normal sinus rhythm on Cardizem drip will transition to PO medication. Noted 660 cc of drain output. Objective PUL Vital signs: Last Vital Signs Temp 97.1 F L 11/01/17 04:00 Pulse 66 11/01/17 06:00 Resp 13 11/01/17 06:00 BP 130/60 11/01/17 06:00 Pulse Ox 97 11/01/17 06:00 General appearance: no acute distress, alert, other (Follows commands, some mild conversational dyspnea) Eyes: nonicteric ENT: oropharynx dry Neck: supple Effort: mildly labored Auscultation: right: diminished breath sounds, rales, bilateral: wheezes Cardiovascular: regular rate and rhythm Gastrointestinal: normoactive bowel sounds, soft, tender (diffuse, without focality), non-distended Integumentary: normal, other (right chest tube placed, no air leak) Extremities: no cyanosis, no edema, no clubbing, pulses normal, no ischemia or petechiae Musculoskeletal: no deformities normal mental status, non-focal exam, pupils equal and round, motor strength normal and symmetric affect normal, anxious Results - Laboratory Findings CBC and BMP: 11/01/17 03:37 11/01/17 03:37 ABG ABG pH 7.31 pH Units (7.32-7.45) L 10/31/17 10:16 ABG pCO2 47 mmHg (35-45) H 10/31/17 10:16 ABG pO2 84 mmHg (85-104) L 10/31/17 10:16 ABG O2 Saturation 95 % (95-98) 10/31/17 10:16 PT/INR, D-dimer PT 16.9 Seconds (9.4-12.1) H 10/31/17 02:18 Abnormal lab findings: Abnormal lab results WBC 23.1 K/mcL (4.3-11.1) H 11/01/17 03:37 Neutrophils # 20.3 K/mcL (1.6-8.9) H 11/01/17 03:37 Nucleated RBCs/100 WBC 0.2 /100 WBC (0) H 11/01/17 03:37 PT 16.9 Seconds (9.4-12.1) H 10/31/17 02:18 ABG pH 7.31 pH Units (7.32-7.45) L 10/31/17 10:16 ABG pCO2 47 mmHg (35-45) H 10/31/17 10:16 ABG pO2 84 mmHg (85-104) L 10/31/17 10:16 ABG Base Excess -4 mEq/L (-2 to 3) L 10/31/17 10:16 BUN 59 mg/dL (8-23) H 11/01/17 03:37 Est GFR (Non-Af Amer) 57 (> 60) L 11/01/17 03:37 BUN/Creatinine Ratio 61 (6-26) H 11/01/17 03:37 Glucose 128 mg/dL (70-105) H 11/01/17 03:37 POC Glucose 203 mg/dL (70-99) H 10/31/17 23:54 Calculated Osmolality 314 (280-300) H 11/01/17 03:37 Calcium 7.7 mg/dL (8.6-10.3) L 11/01/17 03:37 Venous Ioniz Calcium 0.97 mmol/L (1.15-1.35) L 11/01/17 03:51 Phosphorus 6.4 mg/dL (2.7-4.5) H 11/01/17 03:37 Total Bilirubin 2.5 mg/dL (0.3-1.0) H 10/31/17 02:18 Alkaline Phosphatase 140 Units/L (34-104) H 10/31/17 02:18 Troponin I 0.07 ng/mL (< 0.04) H* 10/31/17 02:18 B-Natriuretic Peptide 397 pg/mL (Less than 100) H 10/31/17 10:52 Serum Total Protein 5.7 g/dL (6.4-8.9) L 10/31/17 13:44 Albumin 2.8 g/dL (3.5-5.7) L 10/31/17 02:18 Albumin/Globulin Ratio 0.9 (1.1-2.2) L 10/31/17 02:18 Pleural Appearance Cloudy (Clear) A 10/31/17 13:09 Pleural RBC 0.005 M/mcL (0.000-0.002) H 10/31/17 13:09 Pleural Tot Nuc Cell > 34988 TNC/mcL (0-1000) H 10/31/17 13:09 - Microbiology Findings Microbiology Findings: Microbiology, Last 48 Hours 10/31/17 13:09 Body Fluid Culture - Preliminary Pleural Fluid - Clinical Findings Intake & Output: Intake & Output 10/31/17 10/31/17 11/01/17 15:59 23:59 07:59 Intake Total 300 / 300 790 / 790 110 / 110 Output Total 1300 / 1300 685 / 685 195 / 195 Balance -1000 / -1000 105 / 105 -85 / -85 Weight 81.4 kg 83.9 kg
[2017-11-01] MEDS ORDERED: (Liraglutide [Victoza 3-Pak] 1.2 MG) PO SCH (09:00)
[2017-11-01] MEDS ORDERED: Aspirin 81 MG TAB.CHEW PO SCH (09:00)
[2017-11-01] MEDS ORDERED: predniSONE 20 MG TABLET PO SCH (09:00)
[2017-11-01] MEDS ORDERED: Cholecalciferol (D-3) 1,000 UNIT TABLET PO SCH (09:00)
--- NOTE | 2017-11-01 09:46 | Cardiology Progress Note ---
<Autumn Coronel - Last Filed: 11/01/17 11:35> Date of Encounter: 11/01/17 Time of Encounter: 09:10 Assessment and Plan (1) Pleural effusion, right Current Visit: Yes Status: Acute Chest CT demonstrated large loculated right pleural effusion. Empyema confirmed by thoracentesis. -Right chest tube placed and on abx (2) Atrial fibrillation with rapid ventricular response Current Visit: Yes Status: Acute 11/01/2017 EKG: HR 81, NSR, t wave inversion lead V2, V3, q wave lead 1 10/31/2017 EKG demostrated A.fib RVR HR 164 CHADSVASC score: 5 (age, female, HTN, DM, diastolic CHF) -started cardizem 120mg daily PO, stopped cardizem drip -patient will need AC upon discharge with Eliquis. Explained to patient and she is agreeable. (3) Empyema of right pleural space Current Visit: Yes Status: Acute empyema demonstrated by thoracentesis pleural fluid studies. right chest tube in place. -on abx (4) Sepsis syndrome Current Visit: Yes Status: Acute Sepsis secondary to RLL pneumonia and right pleural effusion. lactic acid 3.1, 1.7 -on antibiotics (5) Elevated troponin I level Current Visit: Yes Status: Acute Likely secondary to demand ischemia in setting of sepsis troponin 0.11, 0.09, 0.07, 0.07 trending down. adynamic 10/31/2017 TTE: LVEF 60-65% mild LV diastolic dysfunction (6) Right lower lobe pneumonia Current Visit: Yes Status: Acute RLL pneumonia demonstrated by chest CT -on BIPAP -currently being treated with rocephin Qualifiers: Pneumonia type: due to Pneumococcus Qualified Code(s): J13 - Pneumonia due to Streptococcus pneumoniae Discussion w patient/family: The assessment and plan as outlined above was discussed with the patient and/or family members who expressed understanding and agreement. All questions were answered. Thank you for involving us in the care of your patient. Please call with any questions. Subjective Principal diagnosis: resp distress, pleural effusion v. empyema Interval history: Patient seen and examined at bedside. She denies chest pain, palpitations. Objective Vital Signs, Last 4 Hours Temp Pulse Resp BP Pulse Ox 11/01/17 07:38 70 11/01/17 07:27 98.4 F 11/01/17 07:00 65 20 121/60 98 11/01/17 06:00 66 13 130/60 97 General: Conversant, No Apparent Distress HEENT: Atraumatic, Mucus Membranes Moist Neck: No JVD Cardiac: Reg Rate and Rhythm, Normal S1 and S2 Lungs: Normal Breath Sounds, Other (rales b/l) Neuro: Alert and responsive Abdomen: Soft, Non-Tender Skin: No rashes noted on visualized skin Musculoskeletal: No Chest Wall Tenderness Extremities: No Edema Results 11/01/17 03:37 11/01/17 03:37 Lab Results 10/31/17 10/31/17 10/31/17 02:18 10:52 18:00 WBC Hgb Hct Plt Count INR 1.6 APTT 30.3 Sodium Potassium 3.9 D Chloride Carbon Dioxide BUN Creatinine Glucose Calcium Magnesium 2.1 B-Natriuretic Peptide 397 H 11/01/17 11/01/17 11/01/17 03:37 03:37 03:37 WBC 23.1 H Hgb 12.2 Hct 35.6 Plt Count 227 INR APTT Sodium 143 Potassium 3.7 Chloride 104 Carbon Dioxide 24 BUN 59 H Creatinine 0.97 Glucose 128 H Calcium 7.7 L Magnesium 2.3 B-Natriuretic Peptide Consult Discharge Plan - Plan Referrals: Melo Vega DO [Primary Care Provider] - <Anneliese Russo - Last Filed: 11/01/17 16:15> Date of Encounter: 11/01/17 Assessment and Plan (1) Atrial fibrillation with rapid ventricular response Current Visit: Yes Status: Acute 11/01/2017 EKG: HR 81, NSR, t wave inversion lead V2, V3, q wave lead 1 10/31/2017 EKG demostrated A.fib RVR HR 164 CHADSVASC score: 5 (age, female, HTN, DM, diastolic CHF) -started cardizem 120mg daily PO, stopped cardizem drip -patient will need AC upon discharge with Eliquis. Explained to patient and she is agreeable. I examined this patient and my medical decision-making was reviewed with the Resident Physician. I agree with the documented findings, disposition and treatment plan as described except to the extent set forth below. 72-year-old female presents with atrial fibrillation and rest for insufficiency status post-chest tube with improved RVR. Switch to by mouth Cardizem 120 mg daily and wean off Cardizem drip. Recommended anticoagulation upon discharge. Discussion w patient/family: The assessment and plan as outlined above was discussed with the patient and/or family members who expressed understanding and agreement. All questions were answered. Thank you for involving us in the care of your patient. Please call with any questions. Results 11/01/17 03:37 11/01/17 03:37 Lab Results 10/31/17 11/01/17 11/01/17 18:00 03:37 03:37 WBC 23.1 H Hgb 12.2 Hct 35.6 Plt Count 227 Sodium 143 Potassium 3.9 D 3.7 Chloride 104 Carbon Dioxide 24 BUN 59 H Creatinine 0.97 Glucose 128 H Calcium 7.7 L Magnesium 2.1 11/01/17 03:37 WBC Hgb Hct Plt Count Sodium Potassium Chloride Carbon Dioxide BUN Creatinine Glucose Calcium Magnesium 2.3
[2017-11-01] MEDS ORDERED: cefTRIAXone 2,000 MG in Water for inj. (sterile) 20 ML 20 ML IVP SCH ×2 (10:00→11:00)
[2017-11-01] MEDS ORDERED: SODIUM CHLORIDE 0.9% IVPB ONE ×2 (11:00→11:38)
[2017-11-01] MEDS ORDERED: ALTEPLASE IVPB ONE ×2 (11:00→11:38)
[2017-11-01] MEDS ORDERED: *HR* Heparin 5,000 UNIT/ML VIAL SQ SCH (11:00)
[2017-11-01 11:19] LABS: VBG PH 7.37 pH Units (7.32-7.42)
[2017-11-01] MEDS ORDERED: Diltiazem CD (24hr) 120 MG CAPSULE PO SCH (11:30)
[2017-11-01] MEDS ORDERED: D5% in Water 1,000 ML IVC PRN (11:38)
[2017-11-01] MEDS ORDERED: *HR* Metoprolol 5 MG/5 ML VIAL IVP PRN (11:38)
[2017-11-01] MEDS ORDERED: *HR* Dextrose 50 % in Water (Syg) 50 ML SYRINGE IVP PRN (11:38)
[2017-11-01] MEDS ORDERED: Dextrose Gel 15 GM/37.5 ML TUBE PO PRN ×2 (11:38)
[2017-11-01] MEDS ORDERED: Famotidine 20 MG TABLET PO PRN ×2 (11:38→15:00)
[2017-11-01] MEDS ORDERED: Ipratropium/Albuterol Neb 3 ML IH SCH (12:00)
[2017-11-01] MEDS: Ipratropium/Albuterol Neb 3 ML IH SCH ×4 (12:03→23:37)
[2017-11-01] MEDS: *HR* Heparin 5,000 UNIT/ML VIAL SQ SCH (18:57)
[2017-11-02] MEDS: Insulin LISPRO 300 UNITS/3 ML VIAL SQ SCH ×4 (00:15→18:41)
[2017-11-02] MEDS: *HR* LORazepam 2 MG/ML VIAL IVP PRN (02:44)
[2017-11-02] MEDS: Ipratropium/Albuterol Neb 3 ML IH SCH ×5 (03:11→20:44)
[2017-11-02] MEDS: *HR* Heparin 5,000 UNIT/ML VIAL SQ SCH ×2 (04:56→18:38)
[2017-11-02 07:24] LABS: Nucleated Red Blood Cells 0.1 /100 WBC (0)
[2017-11-02 07:26] LABS: Hemoglobin 12.8 g/dL (11.5-15.4); Mean Corpuscular HGB Conc 33.7 g/dL (31.6-35.5); Mean Corpuscular Hemoglobin 29.2 pg (28.0-33.3); Mean Corpuscular Volume 86.8 fL (83.0-100.0); Platelet Count 230 K/mcL (140-400); Red Blood Count 4.38 M/mcL (3.82-4.97)
[2017-11-02 07:35] LABS: BUN/Creatinine Ratio 81 (6-26); Blood Urea Nitrogen 60 mg/dL (8-23); Calcium 8.4 mg/dL (8.6-10.3); Carbon Dioxide 27 mEq/L (23-29); Chloride 109 mEq/L (98-107); Glucose 174 mg/dL (70-105); Osmolality,Calculated 325 (280-300); Potassium 3.6 mEq/L (3.5-5.1); Sodium 147 mEq/L (136-145); eGFR For African Americans > 60 (> 60); eGFR For Non-African Americans > 60 (> 60)
[2017-11-02 08:17] LABS: Nucleated Red Blood Cells 0.1 /100 WBC (0)
[2017-11-02 08:19] LABS: Hematocrit 38.2 % (35.3-44.9); Hemoglobin 12.7 g/dL (11.5-15.4); Mean Corpuscular HGB Conc 33.2 g/dL (31.6-35.5); Mean Corpuscular Hemoglobin 28.9 pg (28.0-33.3); Mean Corpuscular Volume 86.8 fL (83.0-100.0); Mean Platelet Volume 11.1 fL (9.4-12.4); Platelet Count 219 K/mcL (140-400)
[2017-11-02 08:23] LABS: Lymphocytes # 1.7 K/mcL (0.6-4.6); Monocytes # 1.7 K/mcL (0.0-1.3)
[2017-11-02 08:24] LABS: Platelet Estimate Normal (Normal)
[2017-11-02 08:25] LABS: Toxic Granulation Present (Not Present)
[2017-11-02 08:34] LABS: Magnesium 2.9 mg/dL (1.6-2.6); Phosphorous 3.2 mg/dL (2.7-4.5)
[2017-11-02 08:53] LABS: Lymphocytes # 4.1 K/mcL (0.6-4.6); Monocytes # 0.9 K/mcL (0.0-1.3); Neutrophils # 26.3 K/mcL (1.6-8.9); Platelet Estimate Normal (Normal); Toxic Granulation Present (Not Present)
[2017-11-02] MEDS ORDERED: predniSONE 20 MG TABLET PO SCH (09:00)
[2017-11-02] MEDS ORDERED: Diltiazem CD (24hr) 120 MG CAPSULE PO SCH (09:00)
--- NOTE | 2017-11-02 09:17 | Pulmonology Progress Note ---
<Joanne Evangelista - Last Filed: 11/02/17 09:17> Date of Encounter: 11/02/17 Subjective Principal diagnosis: resp distress, pleural effusion v. empyema Objective PUL Vital signs: Last Vital Signs Temp 97.7 F 11/02/17 07:00 Pulse 72 11/02/17 07:40 Resp 15 11/02/17 07:00 BP 156/73 11/02/17 07:00 Pulse Ox 96 11/02/17 07:00 Results - Laboratory Findings CBC and BMP: 11/02/17 08:00 11/02/17 06:56 ABG ABG pH 7.31 pH Units (7.32-7.45) L 10/31/17 10:16 ABG pCO2 47 mmHg (35-45) H 10/31/17 10:16 ABG pO2 84 mmHg (85-104) L 10/31/17 10:16 ABG O2 Saturation 95 % (95-98) 10/31/17 10:16 PT/INR, D-dimer PT 16.9 Seconds (9.4-12.1) H 10/31/17 02:18 Abnormal lab findings: Abnormal lab results WBC 31.3 K/mcL (4.3-11.1) H* 11/02/17 08:00 Band Neutrophils % 7.0 % (0-4) H 11/02/17 08:00 Neutrophils # 26.3 K/mcL (1.6-8.9) H 11/02/17 08:00 Nucleated RBCs/100 WBC 0.1 /100 WBC (0) H 11/02/17 08:00 Toxic Granulation Present (Not Present) A 11/02/17 08:00 PT 16.9 Seconds (9.4-12.1) H 10/31/17 02:18 ABG pH 7.31 pH Units (7.32-7.45) L 10/31/17 10:16 ABG pCO2 47 mmHg (35-45) H 10/31/17 10:16 ABG pO2 84 mmHg (85-104) L 10/31/17 10:16 ABG Base Excess -4 mEq/L (-2 to 3) L 10/31/17 10:16 Sodium 147 mEq/L (136-145) H 11/02/17 06:56 Chloride 109 mEq/L (98-107) H 11/02/17 06:56 BUN 60 mg/dL (8-23) H 11/02/17 06:56 BUN/Creatinine Ratio 81 (6-26) H 11/02/17 06:56 Glucose 174 mg/dL (70-105) H 11/02/17 06:56 POC Glucose 200 mg/dL (70-99) H 11/02/17 00:02 Calculated Osmolality 325 (280-300) H 11/02/17 06:56 Calcium 8.4 mg/dL (8.6-10.3) L 11/02/17 06:56 Venous Ioniz Calcium 1.00 mmol/L (1.15-1.35) L 11/01/17 11:16 Magnesium 2.9 mg/dL (1.6-2.6) H 11/02/17 08:00 Total Bilirubin 2.5 mg/dL (0.3-1.0) H 10/31/17 02:18 Alkaline Phosphatase 140 Units/L (34-104) H 10/31/17 02:18 Troponin I 0.07 ng/mL (< 0.04) H* 10/31/17 02:18 B-Natriuretic Peptide 397 pg/mL (Less than 100) H 10/31/17 10:52 Serum Total Protein 5.7 g/dL (6.4-8.9) L 10/31/17 13:44 Albumin 2.8 g/dL (3.5-5.7) L 10/31/17 02:18 Albumin/Globulin Ratio 0.9 (1.1-2.2) L 10/31/17 02:18 Pleural Appearance Cloudy (Clear) A 10/31/17 13:09 Pleural RBC 0.005 M/mcL (0.000-0.002) H 10/31/17 13:09 Pleural Tot Nuc Cell > 83148 TNC/mcL (0-1000) H 10/31/17 13:09 - Microbiology Findings Microbiology Findings: Microbiology, Last 48 Hours 10/31/17 13:09 Body Fluid Culture - Preliminary Pleural Fluid Streptococcus pneumoniae 10/30/17 16:15 Blood Culture - Preliminary Peripheral Venipuncture No growth. 10/30/17 16:15 Blood Culture - Preliminary Peripheral Venipuncture No growth. - Clinical Findings Intake & Output: Intake & Output 04/12/1411/02/17 11/02/17 23:59 07:59 15:59 Intake Total 50 / 50 0 / 0 Output Total 620 / 620 840 / 840 Balance -570 / -570 -840 / -840 Weight 75.8 kg Consult Discharge Plan - Plan Referrals: Melo Vega DO [Primary Care Provider] - <Markell Nolasco - Last Filed: 11/02/17 19:08> Date of Encounter: 11/02/17 Time of Encounter: 08:00 Assessment and Plan (1) Pelvic mass Current Visit: Yes Status: Acute (2) Right lower lobe pneumonia Current Visit: Yes Status: Acute Qualifiers: Pneumonia type: due to Pneumococcus Qualified Code(s): J13 - Pneumonia due to Streptococcus pneumoniae (3) Atrial fibrillation with rapid ventricular response Current Visit: Yes Status: Acute (4) Bacteremia due to Streptococcus pneumoniae Current Visit: Yes Status: Acute (5) Empyema of right pleural space Current Visit: Yes Status: Acute Subjective Interval history: NO acute events overnight remained afebrile Objective PUL Vital signs: Last Vital Signs Temp 97.7 F 11/02/17 07:00 Pulse 72 11/02/17 07:40 Resp 15 11/02/17 07:00 BP 156/73 11/02/17 07:00 Pulse Ox 96 11/02/17 07:00 General appearance: no acute distress Auscultation: left: rales, right: diminished breath sounds, bilateral: other ( chest tube noted with purulent material chest tube to suction ) Cardiovascular: regular rate and rhythm Gastrointestinal: normoactive bowel sounds Integumentary: normal Extremities: edema normal mental status, non-focal exam Results - Laboratory Findings CBC and BMP: 11/02/17 08:00 11/02/17 06:56 ABG ABG pH 7.31 pH Units (7.32-7.45) L 10/31/17 10:16 ABG pCO2 47 mmHg (35-45) H 10/31/17 10:16 ABG pO2 84 mmHg (85-104) L 10/31/17 10:16 ABG O2 Saturation 95 % (95-98) 10/31/17 10:16 PT/INR, D-dimer PT 16.9 Seconds (9.4-12.1) H 10/31/17 02:18 Abnormal lab findings: Abnormal lab results WBC 31.3 K/mcL (4.3-11.1) H* 11/02/17 08:00 Band Neutrophils % 7.0 % (0-4) H 11/02/17 08:00 Neutrophils # 26.3 K/mcL (1.6-8.9) H 11/02/17 08:00 Nucleated RBCs/100 WBC 0.1 /100 WBC (0) H 11/02/17 08:00 Toxic Granulation Present (Not Present) A 11/02/17 08:00 PT 16.9 Seconds (9.4-12.1) H 10/31/17 02:18 ABG pH 7.31 pH Units (7.32-7.45) L 10/31/17 10:16 ABG pCO2 47 mmHg (35-45) H 10/31/17 10:16 ABG pO2 84 mmHg (85-104) L 10/31/17 10:16 ABG Base Excess -4 mEq/L (-2 to 3) L 10/31/17 10:16 Sodium 147 mEq/L (136-145) H 11/02/17 06:56 Chloride 109 mEq/L (98-107) H 11/02/17 06:56 BUN 60 mg/dL (8-23) H 11/02/17 06:56 BUN/Creatinine Ratio 81 (6-26) H 11/02/17 06:56 Glucose 174 mg/dL (70-105) H 11/02/17 06:56 POC Glucose 200 mg/dL (70-99) H 11/02/17 00:02 Calculated Osmolality 325 (280-300) H 11/02/17 06:56 Calcium 8.4 mg/dL (8.6-10.3) L 11/02/17 06:56 Venous Ioniz Calcium 1.00 mmol/L (1.15-1.35) L 11/01/17 11:16 Magnesium 2.9 mg/dL (1.6-2.6) H 11/02/17 08:00 Total Bilirubin 2.5 mg/dL (0.3-1.0) H 10/31/17 02:18 Alkaline Phosphatase 140 Units/L (34-104) H 10/31/17 02:18 Troponin I 0.07 ng/mL (< 0.04) H* 10/31/17 02:18 B-Natriuretic Peptide 397 pg/mL (Less than 100) H 10/31/17 10:52 Serum Total Protein 5.7 g/dL (6.4-8.9) L 10/31/17 13:44 Albumin 2.8 g/dL (3.5-5.7) L 10/31/17 02:18 Albumin/Globulin Ratio 0.9 (1.1-2.2) L 10/31/17 02:18 Pleural Appearance Cloudy (Clear) A 10/31/17 13:09 Pleural RBC 0.005 M/mcL (0.000-0.002) H 10/31/17 13:09 Pleural Tot Nuc Cell > 92877 TNC/mcL (0-1000) H 10/31/17 13:09 - Microbiology Findings Microbiology Findings: Microbiology, Last 48 Hours 10/31/17 13:09 Body Fluid Culture - Preliminary Pleural Fluid Streptococcus pneumoniae 10/30/17 16:15 Blood Culture - Preliminary Peripheral Venipuncture No growth. 10/30/17 16:15 Blood Culture - Preliminary Peripheral Venipuncture No growth. - Clinical Findings Intake & Output: Intake & Output 11/01/17 11/02/17 11/02/17 23:59 07:59 15:59 Intake Total 50 / 50 0 / 0 Output Total 620 / 620 840 / 840 Balance -570 / -570 -840 / -840 Weight 75.8 kg - Attending Attestation I examined this patient and my medical decision-making was reviewed with the Resident Physician. I agree with the documented findings, disposition and treatment plan as described except to the extent set forth below. We independently had [id number] contact with the patient Patient seen and examined at bedside Labs, radiology, chart personally reviewed. Management was reviewed during multidisciplinary critical care rounds. 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 Bipap as needed for comfort. Empyema s/p chest tube. Improved output s/t tPA placement. CT chest pending to f/u on drainage. Cards:BP moniroted and stable. start CCB now taking po stop dilt infusion. FEN-GI: ADAT per recs. MBS performed yesterday.. ?Mesenteric Mass CT abd/plevis pending today. Renal: UOP monitored ID: Worsening WBC level ?missed dosed of Rocephin vs failure of chest tube placement. CTS consult based upon imaging results. Start Vanc possible resistance pending culture sensitivity. Heme/Onc: Cont DVT prophylaxis Endo: Glucose Monitored Integ/MSK: Skin Care per routine ICU Nursing Protocol to prevent ulcers. Lines: All lines examined without evidence of infection : Dispo: Remain in ICU CODE: Full Stable for MED/TELE
[2017-11-02] MEDS: Aspirin 81 MG TAB.CHEW PO SCH (10:07)
[2017-11-02] MEDS: Cholecalciferol (D-3) 1,000 UNIT TABLET PO SCH (10:08)
[2017-11-02] MEDS: cefTRIAXone 2,000 MG in Water for inj. (sterile) 20 ML 20 ML IVP SCH (12:48)
[2017-11-02] MEDS ORDERED: *HR* OxyCODONE Immed Rel 5 MG TABLET PO PRN ×2 (13:45→14:03)
--- NOTE | 2017-11-02 16:19 | Cardiothoracic Consult Note ---
Date of Encounter: 11/02/17 Time of Encounter: 15:31 Assessment and Plan (1) Empyema of right pleural space Current Visit: Yes Status: Acute The patient is a 72-year-old type II diabetic, hypertensive lady with a large loculated right pleural empyema. The cultures reveal a Streptococcus pneumonia organism. A small bore chest tube was placed into the pleural effusion in hopes of draining this completely; however, this effusion has persisted despite the use of TPA. The patient remains ill appearing with an elevated white count. She has been recommended for a right thoracotomy and decortication. I concur with this procedure. The patient will be evaluated by Dr. Perez Walden and he will proceed with decortication tomorrow. The assessment and plan as outlined above was discussed with the patient and/or family members who expressed understanding and agreement. All questions were answered. - History of Present Illness Consult date: 11/02/17 Requesting physician: Markell Nolasco Consult reason: Right pleural empyema Chief complaint: Right lateral chest pain, shortness of breath History of present illness: Ms. Willis is a 72 year old type II diabetic, hypertensive lady who was admitted to [facility] on 10/30/2017 with a one-week history of increasing shortness of breath and dyspnea on exertion. She was evaluated at [facility] emergency department and found to have a large left pleural effusion. She was transferred to [facility] for further care. A chest tube was inserted and tPA was used to help drain the loculated right pleural effusion. This has resulted in minimal drainage and the patient continues to appear septic with a WBC 31.6K. The patient has a Streptococcus pneumonia positive blood culture. I have been asked to evaluate the patient for possible right thoracotomy and decortication. Past Med Surg Social Fam HX - Past Medical History Medical history: asthma, diabetes, GERD, hypertension, other Psychiatric history: no psych history - Past Surgical History Surgical History: no surgical history - Social History Smoking Status: Former smoker Smokeless Tobacco Status: No Alcohol use: none Drug use: none Occupational status: retired Current living situation: Home - Independent Activity Level: Independent ambulation Recent Out of Country Travel Within the Last 8 Weeks: No Exposure or Possible Exposure to Illness During Travel: No - Family History Brother Hx Family Cardiac Disorders: Yes Medications and Allergies Benzonatate [Tessalon] 100 mg PO TID #20 capsule 10/28/17 [Rx] Clindamycin [Cleocin] 300 mg PO TID #50 capsule 10/28/17 [Rx] Albuterol Neb [Proventil Neb] 2.5 mg IH Q6H PRN 10/30/17 [History] Albuterol Sulfate [Albuterol Inhaler] 2 puff IH QID PRN 10/30/17 [History] Aspirin [Lo-Dose Aspirin EC] 81 mg PO DAILY 10/30/17 [History] Cholecalciferol (Vitamin D3) [Vitamin D3] 5,000 unit PO QWEEK 10/30/17 [History] Liraglutide [Victoza 3-Kelvin] 1.2 mg PO DAILY 10/30/17 [History] Lisinopril 2.5 mg PO DAILY 10/30/17 [History] Meclizine HCl [Verticalm] 25 mg PO DAILY PRN 10/30/17 [History] Ranitidine HCl [Acid Operations Team Leader] 150 mg PO BID PRN 10/30/17 [History] Sertraline [Zoloft] 50 mg PO DAILY 10/30/17 [History] methylPREDNISolone [Medrol] 4 mg PO PER PKG DI 10/30/17 [History] 3 Allergy/AdvReac Type Severity Reaction Status Date / Time acetaminophen Allergy Rash Verified 10/31/17 17:24 Amoxicillin [From Augmentin] Allergy Rash Verified 10/30/17 10:40 azithromycin Allergy Hives Verified 10/30/17 10:40 cephalexin Allergy Rash Verified 10/30/17 10:40 clavulanic acid Allergy Rash Verified 10/30/17 10:40 [From Augmentin] doxycycline Allergy Rash Verified 10/30/17 10:40 omeprazole Allergy Rash Verified 10/30/17 10:40 All Systems Review: The remainder of the systems were reviewed and are negative Physical Examination Vital Signs, Last 4 Hours Temp Pulse Resp BP Pulse Ox 11/02/17 15:00 98.3 F 65 22 167/83 94 General: Other (Ill-appearing elderly lady in some respiratory distress) HEENT: Atraumatic, Normocephaly, Trachea midline Neck: No JVD, Normal carotid pulses Cardiac: Reg Rate and Rhythm, Normal S1 and S2, No Murmur Lungs: Normal Breath Sounds (Left lung ospina), Decreased breath sounds (Right lung ospina) Neuro: No focal deficits noted Vascular: Normal capillary refill Skin: No rashes noted on visualized skin Musculoskeletal: No Chest Wall Tenderness Extremities: No Clubbing, No Cyanosis, No Edema Results 11/02/17 08:00 11/02/17 06:56 Lab Results, Last 24 hours 11/02/17 11/02/17 11/02/17 06:56 06:56 08:00 WBC 34.4 H* 31.3 H* Hgb 12.8 12.7 Hct 38.0 38.2 Plt Count 230 219 Sodium 147 H Potassium 3.6 Chloride 109 H Carbon Dioxide 27 BUN 60 H Creatinine 0.74 Glucose 174 H Calcium 8.4 L Magnesium 11/02/17 08:00 WBC Hgb Hct Plt Count Sodium Potassium Chloride Carbon Dioxide BUN Creatinine Glucose Calcium Magnesium 2.9 H - Imaging Chest Xray: image reviewed (Normal cardiac size. Large loculated right pleural effusion.) Consult Discharge Plan - Plan Referrals: Melo Vega DO [Primary Care Provider] -
--- NOTE | 2017-11-02 19:12 | Event Note ---
Date of Encounter: 11/02/17 Time of Encounter: 13:00 CT C/A/P results reviewed. Overall worsening of pleural fluid collection/ empyema. This essentially means failure small bore chest tube Tx. D/w CTS who will see the patient likely will surgical decortication. Also noted large likely pelvic (ovarian) originating mass abdominal extension suspicious for malignancy. D/w Gynecology surgey and their opinion is that patient would likely need eval at [facility]. Clearly this will need to be followed up on on an urgent basis after acute infection/empyema has been treated. I updated the patient and family at bedside with these findings.
[2017-11-02] MEDS ORDERED: *HR* Phytonadione 5 MG TABLET PO ONE (20:09)
--- NOTE | 2017-11-02 20:20 | Cardiothoracic Progress Note ---
Date of Encounter: 11/02/17 Time of Encounter: 20:16 Discussion with patient/family: The patient has a loculated right pleural effusion consistent with a parapneumonic empyema with some interval improvement in the size of the fluid collection following placement of an IR guided drain. She has notable leukocytosis and elevation her INR consistent with sepsis. We will administer vitamin K, make patient nothing by mouth after midnight and she is on the OR schedule for a planned right video-assisted thorascopic decortication. The patient has agreed to the procedure understanding the potential risk calculations - Subjective Interval history: Patient seen and examined. In summary, Mrs. Willis is a 72-year-old diabetic female who became ill by her report approximately 1-2 weeks ago. She was admitted to the hospital and found to have a loculated right pleural effusion and underwent placement of a IR guided right pleural drain with some improvement of her pleural effusion as evidenced by a repeat CAT scan performed today. She notably has a persistent leukocytosis and still has a large loculated right pleural effusion with atelectasis versus infiltrate her right lower lobe. On prednisone empirically and is also on antibiotics. Notably her INR is elevated which may be due to underlying sepsis. I met with the patient and am recommending a right video-assisted thorascopic decortication with possible thoracotomy. I explained the procedure to her along with the potential risks, benefits, therapeutic options, complications and imponderables including but not limited to , bleeding, need for further procedures and postprocedural pain. Patient stated she understood the planned procedure and wished to proceed with surgery as recommended. Vital Signs, Last 4 Hours Temp Pulse Resp BP Pulse Ox 11/02/17 16:42 97.4 F L 66 16 181/81 97 Oxgyen Flow Rate Oxygen Flow Rate (LPM) 3.5 Clinical Data, last 8 Hours Output, Chest Tube Drainage 150 Amount [Right Posterior Chest #1] Output, Chest Tube Drainage 40 Amount [Right Posterior Chest #1] Output, Chest Tube Drainage 40 Amount [Right Posterior Chest #1] Weight 10/31/17 11/01/17 11/02/17 23:59 23:59 23:59 Weight 81.4 kg 83.2 kg 75.8 kg - Physical Examination Chest tubes: Other (Right pleural drain in place draining yellow fluid no air leak noted) Lungs: Other (Breath sounds decreased in right lung field) - Labs 11/02/17 08:00 11/02/17 06:56 Lab Results, Last 24 hours 11/02/17 11/02/17 11/02/17 06:56 06:56 08:00 WBC 34.4 H* 31.3 H* Hgb 12.8 12.7 Hct 38.0 38.2 Plt Count 230 219 Sodium 147 H Potassium 3.6 Chloride 109 H Carbon Dioxide 27 BUN 60 H Creatinine 0.74 Glucose 174 H Calcium 8.4 L Magnesium 11/02/17 08:00 WBC Hgb Hct Plt Count Sodium Potassium Chloride Carbon Dioxide BUN Creatinine Glucose Calcium Magnesium 2.9 H - Imaging Chest Xray: other (CT of chest reviewed demonstrates interval improvement in size of right loculated effusion was still a large to moderate loculated effusion and compression of right lower lobe) Consult Discharge Plan - Plan Referrals: Melo Vega, [Primary Care Provider] -
[2017-11-02] MEDS ORDERED: Nitroglycerin 25 MG/250 ML INFUS..BTL IVC SCH (23:00)
[2017-11-03] MEDS: Ipratropium/Albuterol Neb 3 ML IH SCH ×7 (00:38→23:20)
[2017-11-03] MEDS: Insulin LISPRO 300 UNITS/3 ML VIAL SQ SCH ×5 (01:19→23:41)
[2017-11-03 04:35] LABS: Mean Corpuscular HGB Conc 33.8 g/dL (31.6-35.5); Red Cell Distribution Width 14.4 % (11.5-14.5)
[2017-11-03 04:36] LABS: Hematocrit 39.3 % (35.3-44.9); Hemoglobin 13.3 g/dL (11.5-15.4); Mean Corpuscular Hemoglobin 29.5 pg (28.0-33.3); Mean Corpuscular Volume 87.1 fL (83.0-100.0); Mean Platelet Volume 11.3 fL (9.4-12.4); Platelet Count 221 K/mcL (140-400); Red Blood Count 4.51 M/mcL (3.82-4.97)
[2017-11-03 04:42] LABS: INR 1.4; Prothrombin Time 15.4 Seconds (9.4-12.1)
[2017-11-03 04:50] LABS: BUN/Creatinine Ratio 76 (6-26); Blood Urea Nitrogen 48 mg/dL (8-23); Calcium 8.5 mg/dL (8.6-10.3); Carbon Dioxide 28 mEq/L (23-29); Chloride 110 mEq/L (98-107); Glucose 214 mg/dL (70-105); Magnesium 2.6 mg/dL (1.6-2.6); Osmolality,Calculated 317 (280-300); Phosphorous 3.5 mg/dL (2.7-4.5); Potassium 4.3 mEq/L (3.5-5.1); Sodium 144 mEq/L (136-145); eGFR For African Americans > 60 (> 60); eGFR For Non-African Americans > 60 (> 60)
[2017-11-03] MEDS ORDERED: OXYCODONE Oral CONC 10 MG/0.5 ML ORAL.SYG SL ONE (06:32)
--- NOTE | 2017-11-03 06:59 | Anesthesia Evaluation PreOp ---
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 History: Denies Any Significant HX Other Medical History: GERD Anesthesia History: Past Anesthesia (denies PSH) Alcohol Use: none Drug use: none Medications and Allergies Benzonatate [Tessalon] 100 mg PO TID #20 capsule 10/28/17 [Rx] Clindamycin [Cleocin] 300 mg PO TID #50 capsule 10/28/17 [Rx] Albuterol Neb [Proventil Neb] 2.5 mg IH Q6H PRN 10/30/17 [History] Albuterol Sulfate [Albuterol Inhaler] 2 puff IH QID PRN 10/30/17 [History] Aspirin [Lo-Dose Aspirin EC] 81 mg PO DAILY 10/30/17 [History] Cholecalciferol (Vitamin D3) [Vitamin D3] 5,000 unit PO QWEEK 10/30/17 [History] Liraglutide [Victoza 3-Kelvin] 1.2 mg PO DAILY 10/30/17 [History] Lisinopril 2.5 mg PO DAILY 10/30/17 [History] Meclizine HCl [Verticalm] 25 mg PO DAILY PRN 10/30/17 [History] Ranitidine HCl [Acid Work And Family Life Consultant] 150 mg PO BID PRN 10/30/17 [History] Sertraline [Zoloft] 50 mg PO DAILY 10/30/17 [History] methylPREDNISolone [Medrol] 4 mg PO PER PKG DI 10/30/17 [History] 3 Allergy/AdvReac Type Severity Reaction Status Date / Time acetaminophen Allergy Rash Verified 10/31/17 17:24 Amoxicillin [From Augmentin] Allergy Rash Verified 10/30/17 10:40 azithromycin Allergy Hives Verified 10/30/17 10:40 cephalexin Allergy Rash Verified 10/30/17 10:40 clavulanic acid Allergy Rash Verified 10/30/17 10:40 [From Augmentin] doxycycline Allergy Rash Verified 10/30/17 10:40 omeprazole Allergy Rash Verified 10/30/17 10:40 Anesthesia Results - Labs 11/03/17 04:24 11/03/17 04:24 - Imaging EKG: report reviewed (SINUS TACHYCARDIA BASELINE ARTIFACT) Additional studies: echo: Impressions: LVEF 60-65%. LV endocardial border not well visualized in all windows. Consider repeat Limited study with Imaging Enhancement when clinical status improves. Mild left ventricular diastolic dysfunction. Normal right ventricular size. Hyperdynamic function. Mild mitral regurgitation. Mild tricuspid regurgitation. No pulmonary hypertension by TR gradient. IVC is not well visualized. CT chest: IMPRESSION: Interval placement of right-sided pleural drainage catheter. Persistent but improved likely partially loculated right pleural effusion, now moderate to large in size. No pneumothorax. Areas of consolidation to the right lung with right middle and lower lobe predominance with somewhat improved aeration to the right middle and lower lobes from prior CT exam. There is also some stable consolidation to the lingula of the left upper lobe. Findings felt most likely to relate to atelectasis or infiltrates. However, underlying pathology is not entirely excluded and continued follow-up is recommended. Interval development of likely atelectasis to the left lower lobe. Large, heterogeneous, partially cystic and partially solid mass, which appears to originate from the pelvis and extend into the abdomen. This is felt to account for the mesenteric mass noted on recent CT chest. This is felt likely to be ovarian in origin, more likely right. Question peritoneal/omental implants anteriorly on the left versus contiguous extension of pelvic mass. Small amount of ascites. Anesthesia Exam Selected Entries 11/03/17 04:50 11/03/17 06:00 11/03/17 06:02 Pulse Rate 76 Blood Pressure 159/83 O2 Sat by Pulse Oximetry 95 Oxygen Flow Rate (LPM) 3.5 Oxygen Delivery Method Nasal Cannula Weight: 85kg NPO (# of Hours): 8 - INSTRUMENT TECHNICIAN LOC: Oriented INSTRUMENT TECHNICIAN Motor: Normal RUE, Normal LUE, Normal RLE, Normal LLE, Normal Face INSTRUMENT TECHNICIAN Sensory: Normal: RUE, LUE, RLE, LLE, Face - Cardiac Rhythm: Regular Murmur: None - Pulmonary Breath Sounds: bilateral Clear (decreased BS) Anesthesia Assess/Plan ASA Score: 4 Modified Gabby Scale for Level of Consciousness: Cooperative, oriented, and tranquil Anesthetic Plan: General Monitoring Plan: Standard Monitors, A-Line Recovery Plan: ICU (Agrees to GA, a-line, and MICHELLE. 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
[2017-11-03] MEDS ORDERED: Ondansetron 4 MG/2 ML VIAL ONE (07:08)
[2017-11-03] MEDS ORDERED: Dexamethasone 4 MG/ML VIAL ONE (07:08)
[2017-11-03] MEDS ORDERED: *HR* PHENYLEPHRINE 1,000 MCG/10 ML SYRINGE IVP ONE ×3 (07:08→10:36)
[2017-11-03] MEDS ORDERED: *HR* FentaNYL (PF) 250 MCG/5 ML VIAL ONE (07:08)
[2017-11-03] MEDS ORDERED: *HR* Rocuronium Bromide 50 MG/5 ML VIAL ONE ×2 (07:08→09:45)
[2017-11-03] MEDS ORDERED: *HR* Midazolam HCl 5 MG/5 ML VIAL IVP ONE (07:09)
[2017-11-03] MEDS ORDERED: *HR* Propofol 200 MG/20 ML VIAL IVP ONE (07:09)
[2017-11-03] MEDS ORDERED: Heparin 1,000 UNITS/500 mL 500 ML ONE (07:20)
--- NOTE | 2017-11-03 08:01 | Cardiothoracic Progress Note ---
Date of Encounter: 11/03/17 Time of Encounter: 07:54 Discussion with patient/family: Plan for right VATS today with decortication and possible thoracotomy. The patient has had the planned procedure explained to her along with the potential risks, benefits, therapeutic options, complications and imponderables including but not limited to , bleeding, need for blood or blood products, need for thoracotomy, post-operative pain and pain syndromes, need for further procedures if empyema recurs or lung does not expand, infection and pneumonia ( which patient already has), arrhythmias and CO. The patient indicated she understood the planned procedure its indications and risks and she wishes to proceed with surgery as recommended. - Subjective Procedure(s) Performed: Patient seen and examined. Had uneventful night with only issue being blood pressure control requiring NTG and hydralazine. She was given vitamin K last night and her INR is now 1.4. Her other labs are similar with the only significant abnormality being her leukocytosis. I have discussed the plan for a right VATS and possible thoracotomy with her yesterday and she is to sign her consent this morning. I met with her family members this morning and explained the planned procedure which they indicated was understood. Interval history: Patient seen and examined. In summary, Mrs. Willis is a 72-year-old diabetic female who became ill by her report approximately 1-2 weeks ago. She was admitted to the hospital and found to have a loculated right pleural effusion and underwent placement of a IR guided right pleural drain with some improvement of her pleural effusion as evidenced by a repeat CAT scan performed today. She notably has a persistent leukocytosis and still has a large loculated right pleural effusion with atelectasis versus infiltrate her right lower lobe. On prednisone empirically and is also on antibiotics. Notably her INR is elevated which may be due to underlying sepsis. I met with the patient and am recommending a right video-assisted thorascopic decortication with possible thoracotomy. I explained the procedure to her along with the potential risks, benefits, therapeutic options, complications and imponderables including but not limited to , bleeding, need for further procedures and postprocedural pain. Patient stated she understood the planned procedure and wished to proceed with surgery as recommended. Vital Signs, Last 4 Hours Temp Pulse Resp BP Pulse Ox 11/03/17 07:04 97 F L 86 17 136/69 93 04/07/18 06:02 76 159/83 11/03/17 05:45 78 161/78 11/03/17 05:18 48 189/78 11/03/17 04:50 16 95 Oxgyen Flow Rate Oxygen Flow Rate (LPM) 3.5 Clinical Data, last 8 Hours Output, Chest Tube Drainage 110 Amount [Right Posterior Chest #1] Weight 11/01/17 11/02/17 11/03/17 23:59 23:59 23:59 Weight 83.2 kg 75.8 kg 84.6 kg - Physical Examination General: Other (somewhat tearful and anxious, otherwise NAD) Chest tubes: Other (chest tube appears occluded from thick drainage) Lungs: Other (Diminished on right, CTA on left) - Labs 11/03/17 04:24 11/03/17 04:24 Lab Results, Last 24 hours 11/02/17 11/02/17 11/03/17 08:00 08:00 04:24 WBC 31.3 H* Hgb 12.7 Hct 38.2 Plt Count 219 INR 1.4 Sodium Potassium Chloride Carbon Dioxide BUN Creatinine Glucose Calcium Magnesium 2.9 H 11/03/17 11/03/17 04:24 04:24 WBC 31.0 H* Hgb 13.3 Hct 39.3 Plt Count 221 INR Sodium 144 Potassium 4.3 Chloride 110 H Carbon Dioxide 28 BUN 48 H Creatinine 0.63 Glucose 214 H Calcium 8.5 L Magnesium 2.6 Consult Discharge Plan - Plan Referrals: Melo Vega DO [Primary Care Provider] -
[2017-11-03] MEDS ORDERED: Ethanol\\Acetic Acid\\Na Ace\\Ben 1,000 ML IRRIG.SOLN IR ONE (09:51)
--- NOTE | 2017-11-03 11:15 | Operative Note ---
Date of procedure: 11/03/17 Pre-op diagnosis: Right Parapneumonic Empyema Thoracis, s/p IR drain Post-op diagnosis: same Procedure: Right Video Assisted Thorascopic Decortication with Washout of pleural space Implants: none Complications: None Anesthesia: SHABNAM Surgeon: Perez Walden Was there an assistant corporate controller present: No Estimated blood loss (cc): 50 Urine output (cc): 200 Specimen: Pleural fluid and pleural exudate for culture Condition: stable Disposition: ICU Procedure in Detail: The patient was taken to the operating room after being provided informed consent and placed under general anesthesia using a double-lumen endotracheal tube for isolation of the right lung. A Agudelo catheter was oriented place as well as a pre-existing IR drain in the right pleural space. The patient was then positioned in the lateral decubitus position with the right side up and the right chest was prepped and draped in usual sterile fashion. The operation then began by instilling 1% lidocaine in the anterior the posterior axillary line at approximately the seventh intercostal space. Then an approximately 3 cm incision was made in the mid to anterior axillary space and carried down to the most neighboring rib. The pleural space was then entered under direct vision over the superior aspect of the identified rib. Upon entering the pleural space, murky pleural fluid was encountered. A Luken's trap was used to collect the specimen which was sent for Gram stain, culture and sensitivity including anaerobic cultures. Then through the single port site the 30 degree 5 mm port was inserted and under direct vision the remaining pleural fluid was aspirated. Then using a sponge stick loculations were broken down using blunt dissection and loculated fluid collections were aspirated. Adhesions were taken down which were most prominent between the diaphragm and lower lobe and between the posterior lung parenchyma and chest wall. Further irrigation was then used to clear the pleural space from exudative material. Sponge stick was also used to remove exudative material which was sent for Gram stain culture and sensitivity. Additional dense adhesions were taken down along the mediastinum between the upper and lower lobes. The major fissure was opened and loculations broken down and aspirated from this region as well. Once the entire lung was freed from adhesions and exudative material and thereby fully decorticated the pleural space was copiously irrigated with several liters of warm saline mixed with Betadine. Quarter percent Marcaine was then utilized to create an intercostal nerve block from approximately the third approximately the ninth intercostal spaces. A 28-[place] chest tube was inserted from anterior inferior lateral stab incision at approximately the ninth intercostal space. The tube was inserted such that its tip was oriented in the superior aspect of the pleural space posteriorly. The tube was secured to the skin and then additional irrigation was placed in the pleural space and aspirated via the existing chest tube. Notably, during the procedure an additional 5 mm incision was made in the same interspace as the previous port site in the mid axillary line through which a 5 mm port was inserted and used to assist in the video camera insertion enabling more instrumentation to the larger more posterior port site. The entire chest was reinspected thoroughly to confirm hemostasis and ensure all significant exudative material was removed. Then the lung was reexpanded and wounds were closed in layered fashion dressed and the chest tube was attached to Pleur-evac and suction. The patient was extubated and returned to the ICU in stable condition.
--- NOTE | 2017-11-03 11:36 | Anesthesia Procedures ---
Date of Encounter: 11/03/17 Time of Encounter: 08:20 Procedures: Anesthesia - Arterial Line Consent obtained: written consent Time out performed: Yes Sedation: Versed (mg): 2 Supplemental Oxygen via Nasal Cannula (L/min): 2 Size (Gauge): 20 Length (inches): 1 3/4 Technique Used: sterile prep, guide wire technique, direct puncture technique Post-Procedure: line taped into place, dry sterile dressing placed Patient tolerated procedure: well, no complications Complications: none Site: Radial L
[2017-11-03] MEDS ORDERED: Acetaminophen IV 1,000 MG/100 ML INFUS..BTL IVPB ONE (12:27)
[2017-11-03 13:03] LABS: ABG Base Excess 1 mEq/L (-2 to 3); ABG HCO3 30 mEq/L (21-27); ABG Oxygen Saturation 94 % (95-98); ABG PCO2 67 mmHg (35-45); ABG PH 7.26 pH Units (7.32-7.45); ABG PO2 86 mmHg (85-104); ABG TCO2 32 mEq/L (20-26); Blood Gas Modality ASSIST CONTROL; Blood Gas PEEP 5 cm H2O; Blood Gas Respiration Rate 14; Blood Gas VT 400 cc
[2017-11-03] MEDS ORDERED: Ketorolac 15 MG/ML VIAL IVP PRN (13:25)
[2017-11-03] MEDS ORDERED: Methocarbamol 500 MG TABLET PO PRN (13:27)
--- NOTE | 2017-11-03 13:32 | Electrocardiograph Report ---
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
--- NOTE | 2017-11-03 13:47 | Electrocardiograph Report ---
[address] [place] [address] Test Date: 2017-10-31 Pat Name: Armida Willis Department: 109 Room: 03 Gender: F Biomass Facilitator: NEELAM : 1945 Requested By: Autumn Coronel Order Number: [id number] Reading MD: Yomaira Ag Measurements Intervals [place] Rate: 164 P: NV: 0 QRS: -14 QRSD: 238 T: 142 QT: 370 QTc: 460 Interpretive Statements ATRIAL FIBRILLATION WITH RAPID VENTRICULAR RESPONSE LEFT BUNDLE BRANCH BLOCK Electronically Signed On 11-03-2017 13:45:43 EDT by Yomaira Ag
[2017-11-03] MEDS: Aspirin 81 MG TAB.CHEW PO SCH (14:13)
[2017-11-03] MEDS: Cholecalciferol (D-3) 1,000 UNIT TABLET PO SCH (14:14)
[2017-11-03] MEDS: cefTRIAXone 2,000 MG in Water for inj. (sterile) 20 ML 20 ML IVP SCH (14:14)
[2017-11-03] MEDS ORDERED: Aminoglycoside Consult 1 EACH MC ONE (14:56)
--- NOTE | 2017-11-03 15:58 | Internal Med Progress Note ---
Date of Encounter: 11/03/17 Time of Encounter: 15:56 - Assessment and plan (1) Acute respiratory failure with hypoxia Current Visit: Yes Status: Acute Assessment and plan: Patient is currently intubated. Underwent VATS decortication and washout of the right pleural space. Continue vent management. Monitor vital signs closely. Minimize sedation. High risk for complications. (2) Sepsis syndrome Current Visit: Yes Status: Acute Assessment and plan: Severe sepsis due to strep pneumoniae with empyema. Status post VATS decortication today. Leukocytosis persists. On ceftriaxone. SNOMED Code(s): 765155769 (3) Right lower lobe pneumonia Current Visit: Yes Status: Acute Assessment and plan: Due to strep pneumoniae. Continue current antibiotics. High risk for complications. Qualifiers: Pneumonia type: due to Pneumococcus Qualified Code(s): J13 - Pneumonia due to Streptococcus pneumoniae (4) Pleural effusion, right Current Visit: Yes Status: Acute Assessment and plan: Status post chest tube placement after video-assisted thoracoscopy and decortication. Code(s): J90 - Pleural effusion, not elsewhere classified (5) Elevated troponin I level Current Visit: Yes Status: Acute Assessment and plan: Adynamic. Due to hypoxia and demand ischemia. (6) Diabetes Current Visit: Yes Status: Chronic Assessment and plan: Blood sugars elevated. We will continue to monitor. Currently intubated. We will adjust insulin regimen according to blood sugars. Qualifiers: Diabetes mellitus type: type 2 Diabetes mellitus exterminator insulin use: unspecified exterminator insulin use status Diabetes mellitus complication status : with unspecified complications Qualified Code(s): E11.8 - Type 2 diabetes mellitus with unspecified complications (7) Atrial fibrillation with rapid ventricular response Current Visit: Yes Status: Acute Assessment and plan: Rate controlled. Continue Cardizem and metoprolol. (8) Accelerated hypertension Current Visit: Yes Status: Acute Assessment and plan: Patient's blood pressure was ill elevated overnight. As such she was started on intravenous nitro drip during surgery. Blood pressure has now improved. Wean off IV nitroglycerin. - Time Spent With Patient Total time spent is greater than 50% in coordination of care (as documented) at patient's floor/unit and/or counseling patient: - Subjective Interval history: Patient is currently intubated. Underwent video-assisted thoracoscopic decortication this morning. Currently not on any sedation but very somnolent. Admitted to ICU. - Constitutional Vitals: Temp Pulse Resp BP Pulse Ox 96.9 F L 78 18 121/70 97 11/03/17 15:34 11/03/17 14:00 11/03/17 15:48 11/03/17 15:48 11/03/17 15:48 General appearance: Present: cooperative Exam: Patient is somnolent. Intubated - ENT Additional comments: ET tubr place - Neck Neck exam general surgery: Present: supple, trachea midline. Absent: lymphadenopathy - Respiratory Respiratory exam: Present: decreased breath sounds (Right base), prolonged expiratory phase. Absent: wheezes Additional comments: Right-sided chest tube in place. - Cardiovascular Cardiovascular exam: Present: RRR, +S1, +S2. Absent: diastolic murmur, gallop, rubs, systolic murmur - GI/Abdominal GI/Abdominal exam: Present: normal bowel sounds, soft, no peritoneal signs. Absent: distended, tenderness - Extremities Exam Extremities exam: Present: warm, radial pulses palpable and symmetrical. Absent : calf tenderness, cyanotic, pedal edema - Neurological Exam Neurological exam: Present: alert, oriented X3, no focal deficits. Absent: facial droop, speech deficit - Skin Skin exam: Present: dry, intact Internal Medicine: Result - Labs CBC & Chem 7: 11/03/17 04:24 11/03/17 04:24 Labs: Short CBC 11/03/17 Range/Units 04:24 WBC 31.0 H* (4.3-11.1) K/mcL Hgb 13.3 (11.5-15.4) g/dL Hct 39.3 (35.3-44.9) % Plt Count 221 (140-400) K/mcL BMP 11/03/17 04:24 Sodium 144 Potassium 4.3 Chloride 110 H Carbon Dioxide 28 BUN 48 H Creatinine 0.63 Glucose 214 H Calcium 8.5 L - ABG Interpretation ABG results: ABG ABG pH 7.26 pH Units (7.32-7.45) L 11/03/17 12:58 ABG pCO2 67 mmHg (35-45) H 11/03/17 12:58 ABG pO2 86 mmHg (85-104) 11/03/17 12:58 ABG O2 Saturation 94 % (95-98) L 11/03/17 12:58 PT/INR, D-dimer PT 15.4 Seconds (9.4-12.1) H 11/03/17 04:24 - VTE Documentation of Mechanical Device: Intermittent pneumatic compression device Consult Discharge Plan - Plan Referrals: Melo Vega DO [Primary Care Provider] -
[2017-11-03] MEDS ORDERED: Lacri-Lube 3.5 GM TUBE BOTH EYES PRN (19:59)
[2017-11-03] MEDS: Lacri-Lube 3.5 GM TUBE BOTH EYES SCH ×2 (22:49→23:46)
[2017-11-03] MEDS: Chlorhexidine Rinse 15 ML MOUTHWASH MM SCH (23:39)
[2017-11-04] MEDS: *HR* LORazepam 2 MG/ML VIAL IVP PRN (02:06)
[2017-11-04] MEDS: Ipratropium/Albuterol Neb 3 ML IH SCH ×6 (03:19→23:51)
[2017-11-04 05:53] LABS: Hematocrit 37.3 % (35.3-44.9); Hemoglobin 12.3 g/dL (11.5-15.4); Mean Platelet Volume 11.4 fL (9.4-12.4); Nucleated Red Blood Cells 0.2 /100 WBC (0); Platelet Count 190 K/mcL (140-400); Red Cell Distribution Width 14.7 % (11.5-14.5)
[2017-11-04 06:00] LABS: BUN/Creatinine Ratio 78 (6-26); Blood Urea Nitrogen 53 mg/dL (8-23); Carbon Dioxide 29 mEq/L (23-29); Chloride 113 mEq/L (98-107); Glucose 216 mg/dL (70-105); Osmolality,Calculated 325 (280-300); Potassium 4.5 mEq/L (3.5-5.1); Sodium 147 mEq/L (136-145); eGFR For African Americans > 60 (> 60); eGFR For Non-African Americans > 60 (> 60)
[2017-11-04] MEDS: Lacri-Lube 3.5 GM TUBE BOTH EYES SCH ×5 (06:01→19:34)
[2017-11-04 06:11] LABS: ABG Base Excess 6 mEq/L (-2 to 3); ABG HCO3 33 mEq/L (21-27); ABG Oxygen Saturation 97 % (95-98); ABG PCO2 58 mmHg (35-45); ABG PH 7.36 pH Units (7.32-7.45); ABG PO2 95 mmHg (85-104); ABG TCO2 35 mEq/L (20-26); Blood Gas Modality ASSIST CONTROL; Blood Gas PEEP 5 cm H2O; Blood Gas Respiration Rate 18; Blood Gas VT 400 cc
[2017-11-04] MEDS: Insulin LISPRO 300 UNITS/3 ML VIAL SQ SCH ×3 (06:12→17:24)
[2017-11-04 06:16] LABS: Neutrophils # 21.8 K/mcL (1.6-8.9); Platelet Estimate Normal (Normal); Toxic Granulation Present (Not Present)
--- NOTE | 2017-11-04 07:11 | Pulmonology Progress Note ---
Date of Encounter: 11/04/17 Time of Encounter: 07:10 Assessment and Plan (1) Empyema of right pleural space Current Visit: Yes Status: Acute Postop day 1 status post VATS with decortication appreciate cardiothoracic surgery managing the postsurgical aspects of this patient including chest tube removal we will encourage out of bed to chair early ambulation and pain control with alternatives outside of narcotic (2) Right lower lobe pneumonia Current Visit: Yes Status: Acute This is improving Qualifiers: Pneumonia type: due to Pneumococcus Qualified Code(s): J13 - Pneumonia due to Streptococcus pneumoniae (3) Atrial fibrillation with rapid ventricular response Current Visit: Yes Status: Acute Currently rate controlled continue Cardizem (4) Bacteremia due to Streptococcus pneumoniae Current Visit: Yes Status: Acute Continue ceftriaxone for this white count trending down (5) Acute respiratory failure with hypoxia Current Visit: Yes Status: Acute Postoperatively remained on vent for support. Did well today on spontaneous breathing trial plan for CPAP trial to extubation (6) Pelvic mass Current Visit: Yes Status: Acute This will need oncology follow-up after acute issues with empyema/infection have resolved Subjective Principal diagnosis: resp distress, pleural effusion v. empyema Interval history: S/p VATS with Surgical decortication and washout. Surgical was successful patient remained intubated because of lethargy/obtundation. Is more awake and able to follow commands today no untoward effects status post surgery Objective PUL Vital signs: Last Vital Signs Temp 98.3 F 11/04/17 04:27 Pulse 96 11/04/17 06:00 Resp 29 11/04/17 06:47 BP 185/75 11/04/17 06:47 Pulse Ox 98 11/04/17 06:47 General appearance: no acute distress, lethargic (Fully arousable) Eyes: nonicteric Auscultation: right: diminished breath sounds, bilateral: rales, other (Chest tube site noted clean dry and intact) Cardiovascular: regular rate and rhythm Gastrointestinal: normoactive bowel sounds, soft, non-tender Integumentary: normal Extremities: no cyanosis, no edema, no clubbing Musculoskeletal: no deformities non-focal exam Ventilator Settings Ventilator Settings: Ventilator Settings, Last 8 Hours Ventilator Mode CPAP Ventilator Mode A/C Ventilator Mode A/C Ventilator Mode A/C Ventilator Mode A/C Ventilator Mode A/C Ventilator Mode A/C Ventilator Mode A/C Ventilator Mode A/C Ventilator Mode A/C Ventilator Mode A/C Ventilator Mode A/C Ventilator Mode A/C Ventilator Tidal Volume 400 Setting Ventilator Tidal Volume 400 Setting Ventilator Tidal Volume 400 Setting Ventilator Tidal Volume 400 Setting Ventilator Tidal Volume 400 Setting Ventilator Tidal Volume 400 Setting Ventilator Tidal Volume 400 Setting Ventilator Tidal Volume 400 Setting Ventilator Tidal Volume 400 Setting Ventilator Tidal Volume 400 Setting Ventilator Tidal Volume 400 Setting Ventilator Tidal Volume 400 Setting Ventilator Respiratory Rate 18 Setting Ventilator Respiratory Rate 18 Setting Ventilator Respiratory Rate 18 Setting Ventilator Respiratory Rate 18 Setting Ventilator Respiratory Rate 18 Setting Ventilator Respiratory Rate 18 Setting Ventilator Respiratory Rate 18 Setting Ventilator Respiratory Rate 18 Setting Ventilator Respiratory Rate 18 Setting Ventilator Respiratory Rate 18 Setting Ventilator Respiratory Rate 18 Setting Ventilator Respiratory Rate 18 Setting Actual Respiratory Rate 19 Actual Respiratory Rate 18 Actual Respiratory Rate 20 Actual Respiratory Rate 18 Actual Respiratory Rate 18 Actual Respiratory Rate 18 Actual Respiratory Rate 18 Actual Respiratory Rate 18 Actual Respiratory Rate 18 Actual Respiratory Rate 18 Actual Respiratory Rate 18 Actual Respiratory Rate 18 Positive End Expiratory 5 Pressure Positive End Expiratory 5 Pressure Positive End Expiratory 5 Pressure Positive End Expiratory 5 Pressure Positive End Expiratory 5 Pressure Positive End Expiratory 5 Pressure Positive End Expiratory 5 Pressure Positive End Expiratory 5 Pressure Positive End Expiratory 5 Pressure Positive End Expiratory 5 Pressure Positive End Expiratory 5 Pressure Positive End Expiratory 5 Pressure Positive End Expiratory 5 Pressure Peak Inspiratory Airway 12 Pressure Peak Inspiratory Airway 30 Pressure Peak Inspiratory Airway 30 Pressure Peak Inspiratory Airway 30 Pressure Peak Inspiratory Airway 27 Pressure Peak Inspiratory Airway 28 Pressure Peak Inspiratory Airway 31 Pressure Peak Inspiratory Airway 30 Pressure Peak Inspiratory Airway 31 Pressure Peak Inspiratory Airway 30 Pressure Results - Laboratory Findings CBC and BMP: 11/04/17 04:00 11/04/17 04:00 ABG ABG pH 7.36 pH Units (7.32-7.45) 11/04/17 06:06 ABG pCO2 58 mmHg (35-45) H 11/04/17 06:06 ABG pO2 95 mmHg (85-104) 11/04/17 06:06 ABG O2 Saturation 97 % (95-98) 11/04/17 06:06 PT/INR, D-dimer PT 15.4 Seconds (9.4-12.1) H 11/03/17 04:24 Abnormal lab findings: Abnormal lab results WBC 24.8 K/mcL (4.3-11.1) H 11/04/17 04:00 RDW 14.7 % (11.5-14.5) H 11/04/17 04:00 Band Neutrophils % 7.0 % (0-4) H 11/02/17 08:00 Neutrophils # 21.8 K/mcL (1.6-8.9) H 11/04/17 04:00 Nucleated RBCs/100 WBC 0.2 /100 WBC (0) H 11/04/17 04:00 Toxic Granulation Present (Not Present) A 11/04/17 04:00 PT 15.4 Seconds (9.4-12.1) H 11/03/17 04:24 ABG pCO2 58 mmHg (35-45) H 11/04/17 06:06 ABG HCO3 33 mEq/L (21-27) H 11/04/17 06:06 ABG Total CO2 35 mEq/L (20-26) H 11/04/17 06:06 ABG Base Excess 6 mEq/L (-2 to 3) H 11/04/17 06:06 Sodium 147 mEq/L (136-145) H 11/04/17 04:00 Chloride 113 mEq/L (98-107) H 11/04/17 04:00 BUN 53 mg/dL (8-23) H 11/04/17 04:00 BUN/Creatinine Ratio 78 (6-26) H 11/04/17 04:00 Glucose 216 mg/dL (70-105) H 11/04/17 04:00 POC Glucose 168 mg/dL (70-99) H 11/03/17 23:06 Calculated Osmolality 325 (280-300) H 11/04/17 04:00 Calcium 8.0 mg/dL (8.6-10.3) L 11/04/17 04:00 Venous Ioniz Calcium 1.00 mmol/L (1.15-1.35) L 11/01/17 11:16 Total Bilirubin 2.5 mg/dL (0.3-1.0) H 10/31/17 02:18 Alkaline Phosphatase 140 Units/L (34-104) H 10/31/17 02:18 Troponin I 0.07 ng/mL (< 0.04) H* 10/31/17 02:18 B-Natriuretic Peptide 397 pg/mL (Less than 100) H 10/31/17 10:52 Serum Total Protein 5.7 g/dL (6.4-8.9) L 10/31/17 13:44 Albumin 2.8 g/dL (3.5-5.7) L 10/31/17 02:18 Albumin/Globulin Ratio 0.9 (1.1-2.2) L 10/31/17 02:18 Pleural Appearance Cloudy (Clear) A 10/31/17 13:09 Pleural RBC 0.005 M/mcL (0.000-0.002) H 10/31/17 13:09 Pleural Tot Nuc Cell > 17780 TNC/mcL (0-1000) H 10/31/17 13:09 - Microbiology Findings Microbiology Findings: Microbiology, Last 48 Hours 11/03/17 09:45 Gram Stain - Preliminary Pleural Fluid - Clinical Findings Intake & Output: Intake & Output 11/03/17 11/03/17 11/04/17 15:59 23:59 07:59 Intake Total 0 / 0 Output Total 350 / 350 496 / 496 210 / 210 Balance -350 / -350 -496 / -496 -210 / -210 Weight 85.1 kg - VTE Documentation of Mechanical Device: Intermittent pneumatic compression device Consult Discharge Plan - Plan Referrals: Melo Vega DO [Primary Care Provider] -
[2017-11-04] MEDS ORDERED: Furosemide 40 MG/4 ML VIAL IVP ONE (07:30)
[2017-11-04] MEDS: Aspirin 81 MG TAB.CHEW PO SCH (08:04)
[2017-11-04] MEDS: Pantoprazole 40 MG VIAL IVP SCH (08:09)
[2017-11-04] MEDS: Cholecalciferol (D-3) 1,000 UNIT TABLET PO SCH (08:09)
[2017-11-04] MEDS: Chlorhexidine Rinse 15 ML MOUTHWASH MM SCH ×2 (08:09→19:35)
[2017-11-04] MEDS: cefTRIAXone 2,000 MG in Water for inj. (sterile) 20 ML 20 ML IVP SCH (11:44)
--- NOTE | 2017-11-04 12:57 | Cardiothoracic Progress Note ---
Date of Encounter: 11/04/17 Time of Encounter: 12:55 Discussion with patient/family: Plan to assess thyroid function. Plan for chest x-ray once up in chair. We will consider removing chest tube today or tomorrow depending on clinical course. Emphasis on pulmonary toilet and increased activity. - Subjective Procedure(s) Performed: Patient seen and examined. She underwent a right video-assisted thorascopic decortication and washout of her pleural space yesterday. Notably she was fairly somnolent and sedated following her procedure and she remained intubated overnight. The patient was extubated this morning but is still in bed and currently on BiPAP. Family members were at the bedside. She is responsive and denies any pain which has been controlled only with nonsteroidal anti- inflammatories on a when necessary basis. No narcotics given. According to the patient's sister she has not been this lethargic in the past and is normally active at home. Discussed plans for assessing thyroid function and plans to have patient up in a stretcher chair with increased activity as tolerated. We will consider removing chest tube today or tomorrow depending on clinical course and chest x-ray findings. Interval history: Patient seen and examined. In summary, Mrs. Willis is a 72-year-old diabetic female who became ill by her report approximately 1-2 weeks ago. She was admitted to the hospital and found to have a loculated right pleural effusion and underwent placement of a IR guided right pleural drain with some improvement of her pleural effusion as evidenced by a repeat CAT scan performed today. She notably has a persistent leukocytosis and still has a large loculated right pleural effusion with atelectasis versus infiltrate her right lower lobe. On prednisone empirically and is also on antibiotics. Notably her INR is elevated which may be due to underlying sepsis. I met with the patient and am recommending a right video-assisted thorascopic decortication with possible thoracotomy. I explained the procedure to her along with the potential risks, benefits, therapeutic options, complications and imponderables including but not limited to , bleeding, need for further procedures and postprocedural pain. Patient stated she understood the planned procedure and wished to proceed with surgery as recommended. Vital Signs, Last 4 Hours Temp Pulse Resp BP Pulse Ox 11/04/17 12:00 99 20 122/49 100 11/04/17 11:27 19 128/52 99 11/04/17 11:00 98.7 F 99 24 127/51 100 11/04/17 10:00 99 19 115/51 99 11/04/17 09:51 16 98 11/04/17 09:50 16 136/57 98 11/04/17 09:00 93 16 136/57 98 Oxgyen Flow Rate Oxygen Flow Rate (LPM) 3.5 Clinical Data, last 8 Hours Output, Chest Tube Drainage 4 Amount [Right Lateral Chest #1 ] Output, Chest Tube Drainage 70 Amount [Right Lateral Chest #1 ] Weight 11/02/17 11/03/17 11/04/17 23:59 23:59 23:59 Weight 75.8 kg 85.1 kg - Physical Examination General: Other (Awake, alert, lying in bed on BiPAP, no acute distress) Incision: Other (Dressings intact without evidence of drainage.) Chest tubes: Other (Chest tube dissection with serous drainage and no evidence of air leak) - Labs 11/04/17 04:00 11/04/17 04:00 Lab Results, Last 24 hours 11/04/17 11/04/17 04:00 04:00 WBC 24.8 H Hgb 12.3 Hct 37.3 Plt Count 190 Sodium 147 H Potassium 4.5 Chloride 113 H Carbon Dioxide 29 BUN 53 H Creatinine 0.68 Glucose 216 H Calcium 8.0 L - VTE Documentation of Mechanical Device: Intermittent pneumatic compression device Consult Discharge Plan - Plan Referrals: Melo Vega DO [Primary Care Provider] -
[2017-11-04 13:06] LABS: Thyroid Stimulating Hormone 0.674 mcIU/mL (0.340-5.600)
[2017-11-04 13:09] LABS: Triiodothyronine (T3) Free 2.51 pg/mL (2.50-3.90)
[2017-11-04 13:13] LABS: Triiodothyronine (T3) Total 0.43 ng/mL (0.87-1.78)
[2017-11-04] MEDS: Ketorolac 15 MG/ML VIAL IVP PRN (15:07)
[2017-11-04] MEDS: Acetaminophen IV 1,000 MG/100 ML INFUS..BTL IVPB SCH (17:20)
[2017-11-05] MEDS: Acetaminophen IV 1,000 MG/100 ML INFUS..BTL IVPB SCH ×2 (00:23→05:32)
[2017-11-05] MEDS: Lacri-Lube 3.5 GM TUBE BOTH EYES SCH ×3 (00:30→07:57)
[2017-11-05] MEDS: Insulin LISPRO 300 UNITS/3 ML VIAL SQ SCH ×4 (00:30→20:21)
[2017-11-05] MEDS: Ipratropium/Albuterol Neb 3 ML IH SCH ×6 (04:00→19:54)
--- NOTE | 2017-11-05 07:19 | Cardiothoracic Progress Note ---
Date of Encounter: 11/05/17 Time of Encounter: 07:17 - Assessment and plan (1) Empyema of right pleural space Current Visit: Yes Status: Acute The patient remained hemodynamic stable overnight. She is sitting in her hospital bed and is very appropriate this morning. She is breathing comfortably. She has no complaints. The assessment and plan as outlined above was discussed with the patient and/or family members who expressed understanding and agreement. All questions were answered. - Subjective Procedure(s) Performed: POD#2 S/P Right VATS with decortication Interval history: The patient remained hemodynamic stable overnight. She is sitting in her hospital bed and is very appropriate this morning. She has no complaints. Vital Signs, Last 4 Hours Temp Pulse Resp BP Pulse Ox 11/05/17 06:10 74 16 168/64 100 11/05/17 05:13 75 20 169/71 99 11/05/17 05:08 97.8 F 11/05/17 04:30 75 18 171/69 99 11/05/17 04:00 16 97 Oxgyen Flow Rate Oxygen Flow Rate (LPM) 3 Clinical Data, last 8 Hours Output, Chest Tube Drainage 0 Amount [Right Lateral Chest #1 ] Output, Chest Tube Drainage 30 Amount [Right Lateral Chest #1 ] Weight 11/03/17 11/04/17 11/05/17 23:59 23:59 23:59 Weight 85.1 kg 82.1 kg - Physical Examination General: Conversant, No Apparent Distress Neck: No JVD, Normal carotid pulses Cardiac: Reg Rate and Rhythm, Normal S1 and S2, No Murmur Incision: No signs of infection, Dry/intact dressing Chest tubes: Minimal drainage, Other (No air leak) Lungs: Normal Breath Sounds, No Wheeze, Rales, Rhonchi Neuro: Alert and responsive, No focal deficits noted Vascular: Normal capillary refill Extremities: No Clubbing, No Cyanosis, No Edema - Labs 11/04/17 04:00 11/04/17 04:00 Lab Results, Last 24 hours 11/04/17 04:00 Sodium 147 H Potassium 4.5 Chloride 113 H Carbon Dioxide 29 BUN 53 H Creatinine 0.68 Glucose 216 H Calcium 8.0 L TSH 0.674 - VTE Documentation of Mechanical Device: Intermittent pneumatic compression device Consult Discharge Plan - Plan Referrals: Melo Vega DO [Primary Care Provider] -
[2017-11-05] MEDS: Cholecalciferol (D-3) 1,000 UNIT TABLET PO SCH (07:56)
[2017-11-05] MEDS: Pantoprazole 40 MG VIAL IVP SCH (07:56)
[2017-11-05] MEDS: Aspirin 81 MG TAB.CHEW PO SCH (07:56)
[2017-11-05] MEDS: Chlorhexidine Rinse 15 ML MOUTHWASH MM SCH (07:57)
--- NOTE | 2017-11-05 08:02 | Pulmonology Progress Note ---
<Marvel Calero - Last Filed: 11/05/17 09:45> Date of Encounter: 11/05/17 Time of Encounter: 08:45 Assessment and Plan (1) Empyema of right pleural space Current Visit: Yes Status: Acute Postop day 2 VATS with decortication w/ chest tube in place The patient had 30mL serosanguinous fluid output overnight No longer intubated, patient feels significantly better Encourage early ambulation (2) Right lower lobe pneumonia Current Visit: Yes Status: Acute RLL Pneumonia secondary to S. pneumo Improving clinically and on labs Patient remains on Rocephin This is antibiotic day 7 Qualifiers: Pneumonia type: due to Pneumococcus Qualified Code(s): J13 - Pneumonia due to Streptococcus pneumoniae (3) Acute respiratory failure with hypoxia Current Visit: Yes Status: Acute Acute respiratory failure with hypoxia, status post extubation The patient has used BiPAP intermittently, however is now saturating fine on 3L nasal cannula She will likely continue to wrap require BiPAP overnight, however she is stable (4) Atrial fibrillation with rapid ventricular response Current Visit: Yes Status: Acute The patient is in sinus rhythm Anticoagulation has been held due to procedure Cardiology recommends Eliquis on DC (5) Bacteremia due to Streptococcus pneumoniae Current Visit: Yes Status: Acute Strep pneumoniae bacteremia WBC continues to trend down Rocephin, abx day 7 (6) Pelvic mass Current Visit: Yes Status: Acute Oncology will follow (7) DVT prophylaxis Current Visit: Yes Status: Acute SCDs, add SQ heparin (8) Code status needs review Current Visit: Yes Status: Acute Patient's code status was removed upon transfer to and from surgery I spoke with the patient and she is unsure about which code status she would like At this time, I have entered Full Code, however this may need review when patient becomes more awake Subjective Principal diagnosis: resp distress, pleural effusion v. empyema Interval history: The patient is resting comfortably in bed at time of examination. She remains pleasantly days from sedation previously, however she is returning to baseline. She reports no problems overnight, and says that her pain has decreased significantly. She also says that she is breathing much easier than she was previously. Objective PUL Vital signs: Last Vital Signs Temp 97.8 F 11/05/17 05:08 Pulse 74 11/05/17 06:10 Resp 16 11/05/17 06:10 BP 168/64 11/05/17 06:10 Pulse Ox 100 11/05/17 06:10 General appearance: no acute distress, alert Eyes: nonicteric ENT: oropharynx moist (Poor dentition ) Neck: supple Effort: normal Auscultation: bilateral: clear Percussion: bilateral: not dull Tactile fremitus: bilateral: normal Cardiovascular: regular rate and rhythm Gastrointestinal: soft, non-tender, non-distended Integumentary: normal Extremities: no cyanosis, no edema, no clubbing, pink and warm Musculoskeletal: no deformities normal mental status, non-focal exam, other (Patient is hazy but alert and oriented) mood appropriate, affect normal Results - Laboratory Findings CBC and BMP: 11/04/17 04:00 11/04/17 04:00 ABG ABG pH 7.36 pH Units (7.32-7.45) 11/04/17 06:06 ABG pCO2 58 mmHg (35-45) H 11/04/17 06:06 ABG pO2 95 mmHg (85-104) 11/04/17 06:06 ABG O2 Saturation 97 % (95-98) 11/04/17 06:06 PT/INR, D-dimer PT 15.4 Seconds (9.4-12.1) H 11/03/17 04:24 Abnormal lab findings: Abnormal lab results WBC 24.8 K/mcL (4.3-11.1) H 11/04/17 04:00 RDW 14.7 % (11.5-14.5) H 11/04/17 04:00 Band Neutrophils % 7.0 % (0-4) H 11/02/17 08:00 Neutrophils # 21.8 K/mcL (1.6-8.9) H 11/04/17 04:00 Nucleated RBCs/100 WBC 0.2 /100 WBC (0) H 11/04/17 04:00 Toxic Granulation Present (Not Present) A 11/04/17 04:00 PT 15.4 Seconds (9.4-12.1) H 11/03/17 04:24 ABG pCO2 58 mmHg (35-45) H 11/04/17 06:06 ABG HCO3 33 mEq/L (21-27) H 11/04/17 06:06 ABG Total CO2 35 mEq/L (20-26) H 11/04/17 06:06 ABG Base Excess 6 mEq/L (-2 to 3) H 11/04/17 06:06 Sodium 147 mEq/L (136-145) H 11/04/17 04:00 Chloride 113 mEq/L (98-107) H 11/04/17 04:00 BUN 53 mg/dL (8-23) H 11/04/17 04:00 BUN/Creatinine Ratio 78 (6-26) H 11/04/17 04:00 Glucose 216 mg/dL (70-105) H 11/04/17 04:00 POC Glucose 133 mg/dL (70-99) H 11/05/17 00:29 Calculated Osmolality 325 (280-300) H 11/04/17 04:00 Calcium 8.0 mg/dL (8.6-10.3) L 11/04/17 04:00 Venous Ioniz Calcium 1.00 mmol/L (1.15-1.35) L 11/01/17 11:16 Total Bilirubin 2.5 mg/dL (0.3-1.0) H 10/31/17 02:18 Alkaline Phosphatase 140 Units/L (34-104) H 10/31/17 02:18 Troponin I 0.07 ng/mL (< 0.04) H* 10/31/17 02:18 B-Natriuretic Peptide 397 pg/mL (Less than 100) H 10/31/17 10:52 Serum Total Protein 5.7 g/dL (6.4-8.9) L 10/31/17 13:44 Albumin 2.8 g/dL (3.5-5.7) L 10/31/17 02:18 Albumin/Globulin Ratio 0.9 (1.1-2.2) L 10/31/17 02:18 Total T3 0.43 ng/mL (0.87-1.78) L 11/04/17 04:00 Pleural Appearance Cloudy (Clear) A 10/31/17 13:09 Pleural RBC 0.005 M/mcL (0.000-0.002) H 10/31/17 13:09 Pleural Tot Nuc Cell > 70592 TNC/mcL (0-1000) H 10/31/17 13:09 - Microbiology Findings Microbiology Findings: Microbiology, Last 48 Hours 11/03/17 09:45 Gram Stain - Final Pleural Fluid Body Fluid Culture - Preliminary 11/03/17 09:45 Body Fluid Culture - Preliminary Pleural Fluid - Clinical Findings Intake & Output: Intake & Output 11/04/17 11/05/17 11/05/17 23:59 07:59 15:59 Intake Total 100 / 100 680 / 680 Output Total 150 / 150 380 / 380 Balance -50 / -50 300 / 300 Weight 82.1 kg - VTE Documentation of Mechanical Device: Intermittent pneumatic compression device Consult Discharge Plan - Plan Referrals: Melo Vega DO [Primary Care Provider] - <Ramos Oconnell - Last Filed: 11/05/17 13:15> Date of Encounter: 11/05/17 Objective PUL Vital signs: Last Vital Signs Temp 98.1 F 11/05/17 08:00 Pulse 61 11/05/17 09:00 Resp 18 11/05/17 10:00 BP 140/56 11/05/17 10:00 Pulse Ox 98 11/05/17 10:00 Results - Laboratory Findings CBC and BMP: 11/04/17 04:00 11/04/17 04:00 ABG ABG pH 7.36 pH Units (7.32-7.45) 11/04/17 06:06 ABG pCO2 58 mmHg (35-45) H 11/04/17 06:06 ABG pO2 95 mmHg (85-104) 11/04/17 06:06 ABG O2 Saturation 97 % (95-98) 11/04/17 06:06 PT/INR, D-dimer PT 15.4 Seconds (9.4-12.1) H 11/03/17 04:24 Abnormal lab findings: Abnormal lab results WBC 24.8 K/mcL (4.3-11.1) H 11/04/17 04:00 RDW 14.7 % (11.5-14.5) H 11/04/17 04:00 Band Neutrophils % 7.0 % (0-4) H 11/02/17 08:00 Neutrophils # 21.8 K/mcL (1.6-8.9) H 11/04/17 04:00 Nucleated RBCs/100 WBC 0.2 /100 WBC (0) H 11/04/17 04:00 Toxic Granulation Present (Not Present) A 11/04/17 04:00 PT 15.4 Seconds (9.4-12.1) H 11/03/17 04:24 ABG pCO2 58 mmHg (35-45) H 11/04/17 06:06 ABG HCO3 33 mEq/L (21-27) H 11/04/17 06:06 ABG Total CO2 35 mEq/L (20-26) H 11/04/17 06:06 ABG Base Excess 6 mEq/L (-2 to 3) H 11/04/17 06:06 Sodium 147 mEq/L (136-145) H 11/04/17 04:00 Chloride 113 mEq/L (98-107) H 11/04/17 04:00 BUN 53 mg/dL (8-23) H 11/04/17 04:00 BUN/Creatinine Ratio 78 (6-26) H 11/04/17 04:00 Glucose 216 mg/dL (70-105) H 11/04/17 04:00 POC Glucose 133 mg/dL (70-99) H 11/05/17 00:29 Calculated Osmolality 325 (280-300) H 11/04/17 04:00 Calcium 8.0 mg/dL (8.6-10.3) L 11/04/17 04:00 Venous Ioniz Calcium 1.00 mmol/L (1.15-1.35) L 11/01/17 11:16 Total Bilirubin 2.5 mg/dL (0.3-1.0) H 10/31/17 02:18 Alkaline Phosphatase 140 Units/L (34-104) H 10/31/17 02:18 Troponin I 0.07 ng/mL (< 0.04) H* 10/31/17 02:18 B-Natriuretic Peptide 397 pg/mL (Less than 100) H 10/31/17 10:52 Serum Total Protein 5.7 g/dL (6.4-8.9) L 10/31/17 13:44 Albumin 2.8 g/dL (3.5-5.7) L 10/31/17 02:18 Albumin/Globulin Ratio 0.9 (1.1-2.2) L 10/31/17 02:18 Total T3 0.43 ng/mL (0.87-1.78) L 11/04/17 04:00 Pleural Appearance Cloudy (Clear) A 10/31/17 13:09 Pleural RBC 0.005 M/mcL (0.000-0.002) H 10/31/17 13:09 Pleural Tot Nuc Cell > 72251 TNC/mcL (0-1000) H 10/31/17 13:09 - Microbiology Findings Microbiology Findings: Microbiology, Last 48 Hours 10/30/17 16:15 Blood Culture - Final Peripheral Venipuncture No growth. 10/30/17 16:15 Blood Culture - Final Peripheral Venipuncture No growth. 11/03/17 09:45 Gram Stain - Final Pleural Fluid Body Fluid Culture - Preliminary 11/03/17 09:45 Body Fluid Culture - Preliminary Pleural Fluid - Clinical Findings Intake & Output: Intake & Output 11/04/17 11/05/17 11/05/17 23:59 07:59 15:59 Intake Total 100 / 100 680 / 680 20 / 20 Output Total 150 / 150 380 / 380 320 / 320 Balance -50 / -50 300 / 300 -300 / -300 Weight 82.1 kg - Attending Attestation I examined this patient and my medical decision-making was reviewed with the Resident Physician. I agree with the documented findings, disposition and treatment plan as described except to the extent set forth below. Patient seen and examined. Labs, radiology, chart personally reviewed. Agree with resident's history and physical, assessment, plan with following comments: [employer]: Patient follows commands, Pulmonary: Acceptable oxygenation and ventilation and cardiothoracic following For the chest tube Cardiovascular: stable GI: Nutrition per dietary and GI prophylaxis per routine Heme: DVT prophylaxis per routine ID: Continue antibiotics and plan to de-escalation Renal; urine out put and renal funtion reviewed Endorcine: blood glucose is monitored Lines: all lines checked and no evidence of infections Skin: skin care to prevent pressure ulcers per nursing routine care Patient is a stable to be transferred to [facility]
[2017-11-05] MEDS ORDERED: Acetaminophen 325 MG TABLET PO PRN (10:37)
[2017-11-05] MEDS ORDERED: Insulin LISPRO 300 UNITS/3 ML VIAL SQ SCH ×2 (11:30→21:00)
[2017-11-05] MEDS: cefTRIAXone 2,000 MG in Water for inj. (sterile) 20 ML 20 ML IVP SCH (11:41)
[2017-11-05] MEDS: Ketorolac 15 MG/ML VIAL IVP PRN ×2 (13:03→20:38)
[2017-11-05] MEDS ORDERED: *HR* LORazepam 2 MG/ML VIAL IVP PRN (15:30)
[2017-11-05] MEDS ORDERED: Methocarbamol 500 MG TABLET PO PRN (15:30)
[2017-11-05] MEDS ORDERED: D5% in Water 1,000 ML IVC PRN (15:30)
[2017-11-05] MEDS ORDERED: *HR* Metoprolol 5 MG/5 ML VIAL IVP PRN (15:30)
[2017-11-05] MEDS ORDERED: Dextrose Gel 15 GM/37.5 ML TUBE PO PRN ×2 (15:30)
[2017-11-05] MEDS ORDERED: *HR* Dextrose 50 % in Water (Syg) 50 ML SYRINGE IVP PRN (15:30)
--- NOTE | 2017-11-05 16:44 | Anesthesia Evaluation Post Op ---
Date of Encounter: 11/05/17 Time of Encounter: 12:00 - Vital Signs Vital Signs: Selected Entries 11/05/17 12:00 Pulse Rate 80 Respiratory Rate 16 Blood Pressure 148/52 O2 Sat by Pulse Oximetry 97 Oxygen Flow Rate (LPM) 3 Oxygen Delivery Method Nasal Cannula - Lungs Lungs: Clear Ascult./Percussion - Airway Airway: Non-obstructed - Cardiovascular Regular Rate - Mental Status Mental Status: Alert & Oriented, Answers Appropriately - Pain Pain Scale: 4 Pain Scale used: Numeric (1 - 10) - Nausea Vomiting Nausea Vomiting: Not Present - Hydration Hydration: Tolerates oral liquids, Agudelo catheter Notes: 11/05/17 16:43 No apparent anesthesia complications
[2017-11-05] MEDS ORDERED: *HR* Heparin 5,000 UNIT/ML VIAL SQ SCH (18:00)
[2017-11-06] MEDS: Ipratropium/Albuterol Neb 3 ML IH SCH ×7 (00:28→23:05)
[2017-11-06 04:49] LABS: Basophils # 0.1 K/mcL (0.0-0.2); Basophils % 0.4 %; Eosinophils # 0.2 K/mcL (0.0-0.6); Eosinophils % 1.3 %; Hematocrit 35.3 % (35.3-44.9); Hemoglobin 11.4 g/dL (11.5-15.4); Immature Granulocytes % 6.1 % (0-4); Lymphocytes # 1.3 K/mcL (0.6-4.6); Lymphocytes % 8.2 %; Mean Corpuscular HGB Conc 32.3 g/dL (31.6-35.5); Mean Corpuscular Hemoglobin 29.6 pg (28.0-33.3); Mean Corpuscular Volume 91.7 fL (83.0-100.0); Mean Platelet Volume 11.5 fL (9.4-12.4); Monocytes # 0.5 K/mcL (0.0-1.3); Monocytes % 3.3 %; Neutrophils # 12.7 K/mcL (1.6-8.9); Platelet Count 193 K/mcL (140-400); Red Blood Count 3.85 M/mcL (3.82-4.97); Red Cell Distribution Width 14.6 % (11.5-14.5); Segmented Neutrophils % 80.7 %
[2017-11-06 05:04] LABS: BUN/Creatinine Ratio 62 (6-26); Blood Urea Nitrogen 36 mg/dL (8-23); Carbon Dioxide 32 mEq/L (23-29); Chloride 107 mEq/L (98-107); Glucose 172 mg/dL (70-105); Osmolality,Calculated 308 (280-300); Potassium 4.6 mEq/L (3.5-5.1); Sodium 143 mEq/L (136-145); eGFR For African Americans > 60 (> 60); eGFR For Non-African Americans > 60 (> 60)
[2017-11-06] MEDS: Ketorolac 15 MG/ML VIAL IVP PRN ×2 (05:21→21:37)
[2017-11-06 05:42] LABS: Platelet Estimate Normal (Normal); Toxic Granulation Present (Not Present)
--- NOTE | 2017-11-06 07:03 | Cardiothoracic Progress Note ---
Date of Encounter: 11/06/17 Time of Encounter: 07:01 - Assessment and plan (1) Empyema of right pleural space Current Visit: Yes Status: Acute The patient remained hemodynamic stable overnight. She is breathing comfortably. She has no complaints. She will be transferred to the stepdown unit when a bed is available. The assessment and plan as outlined above was discussed with the patient and/or family members who expressed understanding and agreement. All questions were answered. - Subjective Procedure(s) Performed: POD#3 S/P Right VATS with decortication Interval history: The patient remained hemodynamic stable overnight. She is resting comfortably in her hospital bed and is very appropriate this morning. She has no complaints. Vital Signs, Last 4 Hours Pulse Resp Pulse Ox 11/06/17 05:10 16 99 11/06/17 05:03 80 16 99 11/06/17 04:13 76 20 99 Oxgyen Flow Rate Oxygen Flow Rate (LPM) 3 Clinical Data, last 8 Hours Output, Chest Tube Drainage 5 Amount [Right Lateral Chest #1 ] Weight 11/04/17 11/05/17 11/06/17 23:59 23:59 23:59 Weight 82.1 kg - Physical Examination General: Conversant, No Apparent Distress Neck: No JVD, Normal carotid pulses Cardiac: Reg Rate and Rhythm, Normal S1 and S2, No Murmur Incision: No signs of infection, Dry/intact dressing Chest tubes: Minimal drainage, Other (No air leak) Lungs: Normal Breath Sounds, No Wheeze, Rales, Rhonchi Neuro: Alert and responsive, No focal deficits noted Vascular: Normal capillary refill Extremities: No Clubbing, No Cyanosis, No Edema - Labs 11/06/17 04:00 11/06/17 04:00 Lab Results, Last 24 hours 11/06/17 11/06/17 04:00 04:00 WBC 15.7 H Hgb 11.4 L Hct 35.3 Plt Count 193 Sodium 143 Potassium 4.6 Chloride 107 Carbon Dioxide 32 H BUN 36 H Creatinine 0.58 L Glucose 172 H Calcium 8.0 L - Imaging Chest Xray: image reviewed (No pneumothorax. No change in bibasilar atelectasis and small pleural effusions.) - VTE Documentation of Mechanical Device: Intermittent pneumatic compression device Consult Discharge Plan - Plan Referrals: Melo Vega DO [Primary Care Provider] -
[2017-11-06] MEDS: Cholecalciferol (D-3) 1,000 UNIT TABLET PO SCH (07:34)
[2017-11-06] MEDS: Aspirin 81 MG TAB.CHEW PO SCH (07:35)
[2017-11-06] MEDS: Insulin LISPRO 300 UNITS/3 ML VIAL SQ SCH ×4 (07:36→21:37)
--- NOTE | 2017-11-06 08:01 | Pulmonology Progress Note ---
<Ramos Oconnell M - Last Filed: 11/06/17 08:09> Date of Encounter: 11/06/17 Objective PUL Vital signs: Last Vital Signs Temp 97.3 F L 11/06/17 02:47 Pulse 82 11/06/17 07:30 Resp 16 11/06/17 07:42 BP 109/78 11/06/17 02:47 Pulse Ox 99 11/06/17 07:42 Results - Laboratory Findings CBC and BMP: 11/06/17 04:00 11/06/17 04:00 ABG ABG pH 7.36 pH Units (7.32-7.45) 11/04/17 06:06 ABG pCO2 58 mmHg (35-45) H 11/04/17 06:06 ABG pO2 95 mmHg (85-104) 11/04/17 06:06 ABG O2 Saturation 97 % (95-98) 11/04/17 06:06 PT/INR, D-dimer PT 15.4 Seconds (9.4-12.1) H 11/03/17 04:24 Abnormal lab findings: Abnormal lab results WBC 15.7 K/mcL (4.3-11.1) H 11/06/17 04:00 Hgb 11.4 g/dL (11.5-15.4) L 11/06/17 04:00 RDW 14.6 % (11.5-14.5) H 11/06/17 04:00 Immature Gran % 6.1 % (0-4) H 11/06/17 04:00 Band Neutrophils % 7.0 % (0-4) H 11/02/17 08:00 Neutrophils # 12.7 K/mcL (1.6-8.9) H 11/06/17 04:00 Nucleated RBCs/100 WBC 0.2 /100 WBC (0) H 11/04/17 04:00 Toxic Granulation Present (Not Present) A 11/06/17 04:00 PT 15.4 Seconds (9.4-12.1) H 11/03/17 04:24 ABG pCO2 58 mmHg (35-45) H 11/04/17 06:06 ABG HCO3 33 mEq/L (21-27) H 11/04/17 06:06 ABG Total CO2 35 mEq/L (20-26) H 11/04/17 06:06 ABG Base Excess 6 mEq/L (-2 to 3) H 11/04/17 06:06 Carbon Dioxide 32 mEq/L (23-29) H 11/06/17 04:00 BUN 36 mg/dL (8-23) H 11/06/17 04:00 Creatinine 0.58 mg/dL (0.60-1.20) L 11/06/17 04:00 BUN/Creatinine Ratio 62 (6-26) H 11/06/17 04:00 Glucose 172 mg/dL (70-105) H 11/06/17 04:00 POC Glucose 176 mg/dL (70-99) H 11/05/17 20:16 Calculated Osmolality 308 (280-300) H 11/06/17 04:00 Calcium 8.0 mg/dL (8.6-10.3) L 11/06/17 04:00 Venous Ioniz Calcium 1.00 mmol/L (1.15-1.35) L 11/01/17 11:16 Total Bilirubin 2.5 mg/dL (0.3-1.0) H 10/31/17 02:18 Alkaline Phosphatase 140 Units/L (34-104) H 10/31/17 02:18 Troponin I 0.07 ng/mL (< 0.04) H* 10/31/17 02:18 B-Natriuretic Peptide 397 pg/mL (Less than 100) H 10/31/17 10:52 Serum Total Protein 5.7 g/dL (6.4-8.9) L 10/31/17 13:44 Albumin 2.8 g/dL (3.5-5.7) L 10/31/17 02:18 Albumin/Globulin Ratio 0.9 (1.1-2.2) L 10/31/17 02:18 Total T3 0.43 ng/mL (0.87-1.78) L 11/04/17 04:00 Pleural Appearance Cloudy (Clear) A 10/31/17 13:09 Pleural RBC 0.005 M/mcL (0.000-0.002) H 10/31/17 13:09 Pleural Tot Nuc Cell > 36466 TNC/mcL (0-1000) H 10/31/17 13:09 - Microbiology Findings Microbiology Findings: Microbiology, Last 48 Hours 10/30/17 16:15 Blood Culture - Final Peripheral Venipuncture No growth. 10/30/17 16:15 Blood Culture - Final Peripheral Venipuncture No growth. 11/03/17 09:45 Gram Stain - Final Pleural Fluid Body Fluid Culture - Preliminary 11/03/17 09:45 Body Fluid Culture - Preliminary Pleural Fluid - Clinical Findings Intake & Output: Intake & Output 11/05/17 11/06/17 11/06/17 23:59 07:59 15:59 Intake Total 220 / 220 Output Total 490 / 490 300 / 300 Balance -270 / -270 -300 / -300 Consult Discharge Plan - Plan Referrals: Manuelito Henry MD [Partnered Physician] - 12/06/17 2:20 pm Melo Vega DO [Primary Care Provider] - 11/15/17 2:15 pm - Attending Attestation I examined this patient and my medical decision-making was reviewed with the Resident Physician. I agree with the documented findings, disposition and treatment plan as described except to the extent set forth below. Patient seen and examined. Labs, radiology, chart personally reviewed. Agree with resident's history and physical, assessment, plan with following comments: SKIN THERAPIST: Patient follows commands, Pulmonary: Acceptable oxygenation and ventilation and chest tube is managed by cardiothoracic. Cardiovascular: stable GI: Nutrition per dietary and GI prophylaxis per routine Heme: DVT prophylaxis per routine ID: Continue antibiotics and plan to de-escalation Renal; urine out put and renal funtion reviewed Endorcine: blood glucose is monitored Lines: all lines checked and no evidence of infections Skin: skin care to prevent pressure ulcers per nursing routine care She is still waiting to be transferred to [facility]. <Rich Hodges - Last Filed: 11/06/17 13:45> Date of Encounter: 11/06/17 Time of Encounter: 08:00 Assessment and Plan (1) Empyema of right pleural space Current Visit: Yes Status: Acute -Postop day 3 VATS with decortication w/ chest tube in place -The patient had 30mL serosanguinous fluid output overnight -No longer intubated, patient feels significantly better -Encourage early ambulation (2) Right lower lobe pneumonia Current Visit: Yes Status: Acute -RLL Pneumonia secondary to S. pneumo -Improving clinically and on labs -Patient remains on Rocephin (day 8) Qualifiers: Pneumonia type: due to Pneumococcus Qualified Code(s): J13 - Pneumonia due to Streptococcus pneumoniae (3) Acute respiratory failure with hypoxia Current Visit: Yes Status: Acute -Acute respiratory failure with hypoxia, s/p extubation -The patient has used BiPAP intermittently, however is now saturating fine on 3L via NC -She will likely continue to wrap require BiPAP overnight, however she is stable (4) Atrial fibrillation with rapid ventricular response Current Visit: Yes Status: Acute -The patient is in sinus rhythm -Anticoagulation has been held due to procedure -Cardiology recommends Eliquis on DC (5) Bacteremia due to Streptococcus pneumoniae Current Visit: Yes Status: Acute -Strep pneumoniae bacteremia -WBC continues to trend down -Rocephin (day 8) (6) Pelvic mass Current Visit: Yes Status: Acute -Oncology will follow (7) DVT prophylaxis Current Visit: Yes Status: Acute -SCDs, add SQ heparin (8) Code status needs review Current Visit: Yes Status: Acute -Patient's code status was removed upon transfer to and from surgery -Patient unsure about which code status she would like -Full Code at the present time; however this may need review when patient becomes more awake Subjective Principal diagnosis: resp distress, pleural effusion v. empyema Interval history: Patient was seen and examined at bedside this morning. The patient is resting comfortably in bed at time of examination. She remains pleasantly days from sedation previously, however she is returning to baseline. She reports no problems overnight, and says that her pain has decreased significantly. She also says that she is breathing much easier than she was previously. She will be transferred to the stepdown unit when a bed is available. Objective PUL Vital signs: Last Vital Signs Temp 97.3 F L 11/06/17 02:47 Pulse 82 11/06/17 07:30 Resp 16 11/06/17 07:42 BP 109/78 11/06/17 02:47 Pulse Ox 99 11/06/17 07:42 General appearance: no acute distress Eyes: nonicteric ENT: oropharynx moist Neck: supple Effort: normal Auscultation: bilateral: clear Percussion: bilateral: not dull Tactile fremitus: bilateral: normal Cardiovascular: regular rate and rhythm Gastrointestinal: normoactive bowel sounds, non-distended Integumentary: normal Extremities: no cyanosis, no edema, no clubbing Musculoskeletal: no deformities, ROM normal normal mental status, non-focal exam mood appropriate, affect normal Results - Laboratory Findings CBC and BMP: 11/06/17 04:00 11/06/17 04:00 ABG ABG pH 7.36 pH Units (7.32-7.45) 11/04/17 06:06 ABG pCO2 58 mmHg (35-45) H 11/04/17 06:06 ABG pO2 95 mmHg (85-104) 11/04/17 06:06 ABG O2 Saturation 97 % (95-98) 11/04/17 06:06 PT/INR, D-dimer PT 15.4 Seconds (9.4-12.1) H 11/03/17 04:24 Abnormal lab findings: Abnormal lab results WBC 15.7 K/mcL (4.3-11.1) H 11/06/17 04:00 Hgb 11.4 g/dL (11.5-15.4) L 11/06/17 04:00 RDW 14.6 % (11.5-14.5) H 11/06/17 04:00 Immature Gran % 6.1 % (0-4) H 11/06/17 04:00 Band Neutrophils % 7.0 % (0-4) H 11/02/17 08:00 Neutrophils # 12.7 K/mcL (1.6-8.9) H 11/06/17 04:00 Nucleated RBCs/100 WBC 0.2 /100 WBC (0) H 11/04/17 04:00 Toxic Granulation Present (Not Present) A 11/06/17 04:00 PT 15.4 Seconds (9.4-12.1) H 11/03/17 04:24 ABG pCO2 58 mmHg (35-45) H 11/04/17 06:06 ABG HCO3 33 mEq/L (21-27) H 11/04/17 06:06 ABG Total CO2 35 mEq/L (20-26) H 11/04/17 06:06 ABG Base Excess 6 mEq/L (-2 to 3) H 11/04/17 06:06 Carbon Dioxide 32 mEq/L (23-29) H 11/06/17 04:00 BUN 36 mg/dL (8-23) H 11/06/17 04:00 Creatinine 0.58 mg/dL (0.60-1.20) L 11/06/17 04:00 BUN/Creatinine Ratio 62 (6-26) H 11/06/17 04:00 Glucose 172 mg/dL (70-105) H 11/06/17 04:00 POC Glucose 176 mg/dL (70-99) H 11/05/17 20:16 Calculated Osmolality 308 (280-300) H 11/06/17 04:00 Calcium 8.0 mg/dL (8.6-10.3) L 11/06/17 04:00 Venous Ioniz Calcium 1.00 mmol/L (1.15-1.35) L 11/01/17 11:16 Total Bilirubin 2.5 mg/dL (0.3-1.0) H 10/31/17 02:18 Alkaline Phosphatase 140 Units/L (34-104) H 10/31/17 02:18 Troponin I 0.07 ng/mL (< 0.04) H* 10/31/17 02:18 B-Natriuretic Peptide 397 pg/mL (Less than 100) H 10/31/17 10:52 Serum Total Protein 5.7 g/dL (6.4-8.9) L 10/31/17 13:44 Albumin 2.8 g/dL (3.5-5.7) L 10/31/17 02:18 Albumin/Globulin Ratio 0.9 (1.1-2.2) L 10/31/17 02:18 Total T3 0.43 ng/mL (0.87-1.78) L 11/04/17 04:00 Pleural Appearance Cloudy (Clear) A 10/31/17 13:09 Pleural RBC 0.005 M/mcL (0.000-0.002) H 10/31/17 13:09 Pleural Tot Nuc Cell > 89704 TNC/mcL (0-1000) H 10/31/17 13:09 - Microbiology Findings Microbiology Findings: Microbiology, Last 48 Hours 10/30/17 16:15 Blood Culture - Final Peripheral Venipuncture No growth. 10/30/17 16:15 Blood Culture - Final Peripheral Venipuncture No growth. 11/03/17 09:45 Gram Stain - Final Pleural Fluid Body Fluid Culture - Preliminary 11/03/17 09:45 Body Fluid Culture - Preliminary Pleural Fluid - Clinical Findings Intake & Output: Intake & Output 11/05/17 11/06/17 11/06/17 23:59 07:59 15:59 Intake Total 220 / 220 Output Total 490 / 490 300 / 300 Balance -270 / -270 -300 / -300 - VTE Documentation of Mechanical Device: Intermittent pneumatic compression device
[2017-11-06] MEDS: cefTRIAXone 2,000 MG in Water for inj. (sterile) 20 ML 20 ML IVP SCH (11:29)
--- NOTE | 2017-11-06 17:56 | Internal Med Progress Note ---
<KennediWolf - Last Filed: 11/06/17 17:51> Date of Encounter: 11/06/17 Time of Encounter: 14:00 - Assessment and plan (1) Empyema of right pleural space Current Visit: Yes Status: Acute Assessment and plan: POD day #3 VATS with decortication w/ chest tube in place CT Chest on admission demonstrated loculated large right pleural effusion. Thoracentesis performed at 10/31/17 without complications, but worsening of pleural empyema requiring VAT on 11/03/17 without complications The patient had 30mL serosanguinous fluid output overnight She is no longer intubated and feels better. Transferred to stepdown this AM Patient is stable on 3L NS Continue duoneb Continue with Rocephin Day #8 Toradol for pain Cardiothoracic surgery following Encourage early ambulation Encourage Spirometry use q1 hour (2) Right lower lobe pneumonia Current Visit: Yes Status: Acute RLL Pneumonia secondary to S. pneumo Improving clinically and on labs Patient remains on Rocephin (day 8) Qualifiers: Pneumonia type: due to Pneumococcus Qualified Code(s): J13 - Pneumonia due to Streptococcus pneumoniae (3) Acute respiratory failure with hypoxia Current Visit: Yes Status: Acute Acute respiratory failure with hypoxia, s/p extubation The patient has used BiPAP intermittently, however is now saturating fine on 3L via NC She will likely continue to wrap require BiPAP overnight, however she is stable (4) Atrial fibrillation with rapid ventricular response Current Visit: Yes Status: Acute The patient is in sinus rhythm Anticoagulation has been held due to procedure Cardiology recommends Eliquis on DC (5) Bacteremia due to Streptococcus pneumoniae Current Visit: Yes Status: Acute Strep pneumoniae bacteremia WBC continues to trend down Rocephin (day 8) (6) Pelvic mass Current Visit: Yes Status: Acute CT demonstrated incidental finding of large likely pelvic (ovarian) originating mass abdominal extension suspicious for malignancy. Follow-up with oncology, possibly outpatient (7) DVT prophylaxis Current Visit: Yes Status: Acute SQ heparin started (8) Code status needs review Current Visit: Yes Status: Acute Patient's code status was removed upon transfer to and from surgery Patient unsure about which code status she would like Full Code at the present time; however this may need review when patient becomes more awake (2) Essential hypertension Current Visit: No Status: Acute Assessment and plan: Patient's BP elevated today. Chronic condition. Reconcile home medication lisinopril 2.5mg PO daily Increase metoprolol to 25 mg BID - Time Spent With Patient Total time spent is greater than 50% in coordination of care (as documented) at patient's floor/unit and/or counseling patient: Greater than 35 minutes - Subjective Interval history: 72F was transferred from [facility] with worsening SOB and RLL PNA and large right pleural effusion and WBC > 27K desating in the 80s. CT demonstrated empyema requiring VAT. She is doing better today. Reports improvement of SOB. Denied any cough. Complaints of acute back pain. Denies any headaches, vision changes, chest pain, abdominal pain, dysuria. Denies numbness, tingling, or weakness. She reports that she is using spirometry every hour. No f/c/n/v. No further acute complaints. - Constitutional Vitals: Temp Pulse Resp BP Pulse Ox 97.9 F 85 17 155/74 94 11/06/17 15:20 11/06/17 15:20 11/06/17 16:48 11/06/17 15:20 11/06/17 16:48 General appearance: Present: cooperative - Head Head exam: Present: atraumatic, normocephalic - Eye Eye exam: Present: PERRL, conjuntiva pink, sclera anicteric Pupils: Present: PERRL - Neck Neck exam general surgery: Present: supple, trachea midline. Absent: lymphadenopathy - Respiratory Respiratory exam: Present: CTAB. Absent: accessory muscle use, rales, rhonchi, wheezes - Cardiovascular Cardiovascular exam: Present: RRR, +S1, +S2. Absent: diastolic murmur, gallop, rubs, systolic murmur - GI/Abdominal GI/Abdominal exam: Present: normal bowel sounds, soft, no peritoneal signs. Absent: distended, tenderness - Extremities Exam Extremities exam: Present: warm, radial pulses palpable and symmetrical. Absent : calf tenderness, cyanotic, pedal edema - Neurological Exam Neurological exam: Present: CN II-XII intact, oriented X3, no focal deficits. Absent: pronater drift, facial droop, speech deficit - Skin Skin exam: Present: dry, intact Internal Medicine: Result - Labs CBC & Chem 7: 11/06/17 04:00 11/06/17 04:00 Labs: Short CBC 11/06/17 Range/Units 04:00 WBC 15.7 H (4.3-11.1) K/mcL Hgb 11.4 L (11.5-15.4) g/dL Hct 35.3 (35.3-44.9) % Plt Count 193 (140-400) K/mcL Neutrophils # 12.7 H (1.6-8.9) K/mcL BMP 11/06/17 04:00 Sodium 143 Potassium 4.6 Chloride 107 Carbon Dioxide 32 H BUN 36 H Creatinine 0.58 L Glucose 172 H Calcium 8.0 L - ABG Interpretation ABG results: ABG ABG pH 7.36 pH Units (7.32-7.45) 11/04/17 06:06 ABG pCO2 58 mmHg (35-45) H 11/04/17 06:06 ABG pO2 95 mmHg (85-104) 11/04/17 06:06 ABG O2 Saturation 97 % (95-98) 11/04/17 06:06 PT/INR, D-dimer PT 15.4 Seconds (9.4-12.1) H 11/03/17 04:24 - Impressions Impressions Chest X-Ray 11/03/17 16:59 IMPRESSION: Right thoracotomy tube in good position with reduction in size of the patient's right-sided effusion. No evidence for pneumothorax. D/ / 11/03/2017 17:18:57 Jeffy Tesfaye MD / ariane Interpreting Provider: Jeffy Tesfaye MD Chest X-Ray 11/06/17 06:00 IMPRESSION: Status post extubation with persistent bibasilar atelectasis and pleural effusions. D/ / 11/06/2017 07:51:12 Han Elizabeth MD / iram Interpreting Provider: Han Elizabeth MD - VTE Documentation of Mechanical Device: Intermittent pneumatic compression device Consult Discharge Plan - Plan Referrals: Manuelito Henry MD [Partnered Physician] - 12/06/17 2:20 pm Melo Vega, DO [Primary Care Provider] - 11/15/17 2:15 pm <Galen Mark - Last Filed: 11/06/17 19:09> Date of Encounter: 11/06/17 - Assessment and plan (1) Acute respiratory failure with hypoxia Current Visit: Yes Status: Acute (2) Empyema of right pleural space Current Visit: Yes Status: Acute (3) Right lower lobe pneumonia Current Visit: Yes Status: Acute Qualifiers: Pneumonia type: due to Pneumococcus Qualified Code(s): J13 - Pneumonia due to Streptococcus pneumoniae (4) Sepsis syndrome Current Visit: Yes Status: Acute SNOMED Code(s): 013027581 (5) Elevated troponin I level Current Visit: Yes Status: Acute (6) Diabetes Current Visit: Yes Status: Chronic Qualifiers: Diabetes mellitus type: type 2 Diabetes mellitus terminologist insulin use: unspecified residential insulin use status Diabetes mellitus complication status : with unspecified complications Qualified Code(s): E11.8 - Type 2 diabetes mellitus with unspecified complications (7) Accelerated hypertension Current Visit: Yes Status: Chronic - Time Spent With Patient Total time spent is greater than 50% in coordination of care (as documented) at patient's floor/unit and/or counseling patient: - Constitutional Vitals: Temp Pulse Resp BP Pulse Ox 99.1 F 95 16 168/66 94 11/06/17 18:46 11/06/17 18:46 11/06/17 18:46 11/06/17 18:46 11/06/17 18:46 Internal Medicine: Result - Labs CBC & Chem 7: 11/06/17 04:00 11/06/17 04:00 Labs: Short CBC 11/06/17 Range/Units 04:00 WBC 15.7 H (4.3-11.1) K/mcL Hgb 11.4 L (11.5-15.4) g/dL Hct 35.3 (35.3-44.9) % Plt Count 193 (140-400) K/mcL Neutrophils # 12.7 H (1.6-8.9) K/mcL BMP 11/06/17 04:00 Sodium 143 Potassium 4.6 Chloride 107 Carbon Dioxide 32 H BUN 36 H Creatinine 0.58 L Glucose 172 H Calcium 8.0 L - ABG Interpretation ABG results: ABG ABG pH 7.36 pH Units (7.32-7.45) 11/04/17 06:06 ABG pCO2 58 mmHg (35-45) H 11/04/17 06:06 ABG pO2 95 mmHg (85-104) 11/04/17 06:06 ABG O2 Saturation 97 % (95-98) 11/04/17 06:06 PT/INR, D-dimer PT 15.4 Seconds (9.4-12.1) H 11/03/17 04:24 - Impressions Impressions Chest X-Ray 11/03/17 16:59 IMPRESSION: Right thoracotomy tube in good position with reduction in size of the patient's right-sided effusion. No evidence for pneumothorax. D/ / 11/03/2017 17:18:57 Jeffy Tesfaye MD / ariane Interpreting Provider: Jeffy Tesfaye MD Chest X-Ray 11/06/17 06:00 IMPRESSION: Status post extubation with persistent bibasilar atelectasis and pleural effusions. D/ / 11/06/2017 07:51:12 Han Elizabeth MD / [facility] Interpreting Provider: Han Elizabeth MD - Attending Attestation I examined this patient and my medical decision-making was reviewed with the Resident Physician on 11/06/17. I agree with the documented findings, disposition and treatment plan as described except to the extent set forth below. Ms Willis is currently admitted for R empyema. She remains moderate to high risk due to potential for worsening clinical status. Ms Willis feels OK. Son is at bedside. She had eaten a little lunch. No fever or chills. Instructed on IS. Exam Alert Comfortable Mucus membranes dry Heart reg Decreased breath sounds No edema I/P 1. Empyema Further diagnoses and plan as above.
[2017-11-06] MEDS: *HR* Heparin 5,000 UNIT/ML VIAL SQ SCH (19:01)
[2017-11-07 04:28] LABS: Basophils # 0.1 K/mcL (0.0-0.2); Basophils % 0.4 %; Eosinophils # 0.2 K/mcL (0.0-0.6); Hematocrit 39.8 % (35.3-44.9); Immature Granulocytes % 3.5 % (0-4); Lymphocytes # 1.8 K/mcL (0.6-4.6); Lymphocytes % 10.5 %; Mean Corpuscular HGB Conc 32.9 g/dL (31.6-35.5); Mean Corpuscular Hemoglobin 29.9 pg (28.0-33.3); Mean Corpuscular Volume 90.9 fL (83.0-100.0); Mean Platelet Volume 11.1 fL (9.4-12.4); Monocytes # 0.7 K/mcL (0.0-1.3); Neutrophils # 13.4 K/mcL (1.6-8.9); Platelet Count 262 K/mcL (140-400); Red Blood Count 4.38 M/mcL (3.82-4.97); Red Cell Distribution Width 14.3 % (11.5-14.5); Segmented Neutrophils % 80.6 %
[2017-11-07] MEDS: Ipratropium/Albuterol Neb 3 ML IH SCH ×5 (04:30→20:42)
[2017-11-07 04:36] LABS: Hemoglobin 13.1 g/dL (11.5-15.4)
[2017-11-07 04:42] LABS: BUN/Creatinine Ratio 45 (6-26); Blood Urea Nitrogen 29 mg/dL (8-23); Calcium 8.4 mg/dL (8.6-10.3); Carbon Dioxide 27 mEq/L (23-29); Chloride 103 mEq/L (98-107); Glucose 122 mg/dL (70-105); Osmolality,Calculated 291 (280-300); Potassium 4.6 mEq/L (3.5-5.1); Sodium 137 mEq/L (136-145); eGFR For African Americans > 60 (> 60); eGFR For Non-African Americans > 60 (> 60)
[2017-11-07] MEDS: Acetaminophen 325 MG TABLET PO PRN (05:59)
[2017-11-07] MEDS: *HR* Heparin 5,000 UNIT/ML VIAL SQ SCH ×2 (05:59→17:45)
--- NOTE | 2017-11-07 07:29 | Cardiothoracic Progress Note ---
Date of Encounter: 11/07/17 Time of Encounter: 07:27 - Assessment and plan (1) Empyema of right pleural space Current Visit: Yes Status: Acute The patient remained hemodynamic stable overnight. She is breathing comfortably. She has no complaints. The chest was removed. The assessment and plan as outlined above was discussed with the patient and/or family members who expressed understanding and agreement. All questions were answered. - Subjective Procedure(s) Performed: POD#4 S/P Right VATS with decortication Interval history: The patient remained hemodynamic stable overnight. She is resting comfortably in her hospital bed and is very appropriate this morning. She has no complaints. Vital Signs, Last 4 Hours Temp Pulse Resp BP Pulse Ox 11/07/17 04:30 17 96 11/07/17 03:35 98.4 F 83 20 158/75 95 Oxgyen Flow Rate Oxygen Flow Rate (LPM) 0 Clinical Data, last 8 Hours Output, Chest Tube Drainage 0 Amount [Right Lateral Chest #1 ] Output, Urine Amount 0 Weight 11/05/17 11/06/17 11/07/17 23:59 23:59 23:59 Weight 82.1 kg 87.5 kg - Physical Examination General: Conversant, No Apparent Distress Neck: No JVD, Normal carotid pulses Cardiac: Reg Rate and Rhythm, Normal S1 and S2, No Murmur Incision: No signs of infection, Dry/intact dressing Chest tubes: Minimal drainage, Other (No air leak) Lungs: Normal Breath Sounds, No Wheeze, Rales, Rhonchi Neuro: Alert and responsive, No focal deficits noted Vascular: Normal capillary refill Extremities: No Clubbing, No Cyanosis, No Edema - Labs 11/07/17 04:01 11/07/17 04:01 Lab Results, Last 24 hours 11/07/17 11/07/17 04:01 04:01 WBC 16.6 H Hgb 13.1 D Hct 39.8 Plt Count 262 Sodium 137 Potassium 4.6 Chloride 103 Carbon Dioxide 27 BUN 29 H Creatinine 0.65 Glucose 122 H Calcium 8.4 L - Imaging Chest Xray: image reviewed (No pneumothorax. Persistent bibasilar atelectasis and effusions, unchanged.) - VTE Documentation of Mechanical Device: Intermittent pneumatic compression device Consult Discharge Plan - Plan Referrals: Manuelito Henry MD [Partnered Physician] - 12/06/17 2:20 pm Melo Vega DO [Primary Care Provider] - 11/15/17 2:15 pm
[2017-11-07] MEDS: Insulin LISPRO 300 UNITS/3 ML VIAL SQ SCH ×5 (08:02→21:34)
[2017-11-07] MEDS: Aspirin 81 MG TAB.CHEW PO SCH (08:10)
[2017-11-07] MEDS: Cholecalciferol (D-3) 1,000 UNIT TABLET PO SCH (08:10)
--- NOTE | 2017-11-07 08:28 | Internal Med Progress Note ---
<Satya Hunt - Last Filed: 11/07/17 15:48> Date of Encounter: 11/07/17 Time of Encounter: 08:27 - Assessment and plan (1) Empyema of right pleural space Current Visit: Yes Status: Acute Assessment and plan: S/p VATS on 11/03/17 with decortication and surgical washout CT Chest on admission demonstrated loculated large right pleural effusion. Pleural fluid culture from 10/31/17 grew strep pneumo Continue Rocephin (Day 9) Continue Duonebs Continue Toradol prn pain Encourage early ambulation Encourage Spirometry use q1 hour 11/07/17 CXR shows unchanged right effusion and basilar opacities with no apparent pneumothorax/hydropneumothorax. Right sided chest tube was removed 11/07/17. Patient is clinically improving. Her SpO2 is 92% on 2L via NC. Cardiothoracic surgery following Physical therapy recommended inpatient rehab upon discharge. (2) Right lower lobe pneumonia Current Visit: Yes Status: Acute Assessment and plan: RLL Pneumonia secondary to S. pneumo Improving clinically Patient on Rocephin (day 9) Qualifiers: Pneumonia type: due to Pneumococcus Qualified Code(s): J13 - Pneumonia due to Streptococcus pneumoniae (3) Acute respiratory failure with hypoxia Current Visit: Yes Status: Acute Assessment and plan: Acute respiratory failure with hypoxia, s/p extubation The patient has used BiPAP intermittently, however is now saturating fine on 2L via NC Continue to use BiPAP overnight (4) Bacteremia due to Streptococcus pneumoniae Current Visit: Yes Status: Acute Assessment and plan: Blood culture from 10/30/17 with Strep pneumoniae bacteremia Repeat cultures are negative Rocephin (day 9) (5) Essential hypertension Current Visit: Yes Status: Chronic Assessment and plan: Patient's BP is better controlled today. Continue home medication Lisinopril 2.5mg PO daily Continue Metoprolol 25 mg BID (6) Pelvic mass Current Visit: Yes Status: Acute Assessment and plan: CT demonstrated incidental finding of large likely pelvic (ovarian) originating mass abdominal extension suspicious for malignancy. Follow-up with oncology as an outpatient (7) DVT prophylaxis Current Visit: Yes Status: Acute Assessment and plan: Heparin Cardiology recommends resumiing Eliquis for A fib upon discharge (8) A-fib Current Visit: Yes Status: Acute Assessment and plan: CHADSVASC score: 5 (age, female, HTN, DM, diastolic CHF) The patient is now in sinus rhythm Anticoagulation was held due to VATS procedure, now on Heparin Cardiology recommends resuming Eliquis upon discharge Qualifiers: Atrial fibrillation type: paroxysmal Qualified Code(s): I48.0 - Paroxysmal atrial fibrillation - Time Spent With Patient Total time spent is greater than 50% in coordination of care (as documented) at patient's floor/unit and/or counseling patient: - Subjective Interval history: Patient seen and examined sitting in bed. Right sided chest tube was removed this AM. CXR shows unchanged right effusion and basilar opacities with no apparent pneumothorax/hydropneumothorax. Patient reports feeling better today and her SpO2 is 92% on 2L via NC. She reports using spirometry every hour. Physical therapy recommended inpatient rehab. - Constitutional Vitals: Temp Pulse Resp BP Pulse Ox 98.2 F 91 18 157/79 92 11/07/17 07:43 11/07/17 07:43 11/07/17 07:43 11/07/17 07:43 11/07/17 07:43 General appearance: Present: cooperative, A&O X 3, pleasant, no acute distress, answers questions appropriately - Head Head exam: Present: atraumatic, normocephalic - Eye Eye exam: Present: PERRL, conjuntiva pink, sclera anicteric Pupils: Present: PERRL - ENT ENT exam: Present: mucous membranes dry, normal oropharynx - Neck Neck exam general surgery: Present: supple, trachea midline. Absent: lymphadenopathy - Respiratory Respiratory exam: Present: decreased breath sounds (RLL). Absent: accessory muscle use, rales, respiratory distress, rhonchi, wheezes - Cardiovascular Cardiovascular exam: Present: RRR, +S1, +S2. Absent: diastolic murmur, gallop, rubs, systolic murmur - GI/Abdominal GI/Abdominal exam: Present: normal bowel sounds, soft, no peritoneal signs. Absent: distended, tenderness - Extremities Exam Extremities exam: Present: warm, radial pulses palpable and symmetrical. Absent : calf tenderness, cyanotic, pedal edema - Incison Incision: Present: clean and dry, intact - Back Exam Back exam: Present: normal inspection (dressing C/D/I). Absent: tenderness - Neurological Exam Neurological exam: Present: alert, CN II-XII intact, oriented X3, no focal deficits. Absent: altered, pronater drift, facial droop, speech deficit - Psychiatric Psychiatric exam: Present: normal affect, normal mood - Skin Skin exam: Present: dry, intact, warm Internal Medicine: Result - Labs CBC & Chem 7: 11/07/17 04:01 11/07/17 04:01 Labs: Short CBC 11/07/17 Range/Units 04:01 WBC 16.6 H (4.3-11.1) K/mcL Hgb 13.1 D (11.5-15.4) g/dL Hct 39.8 (35.3-44.9) % Plt Count 262 (140-400) K/mcL Neutrophils # 13.4 H (1.6-8.9) K/mcL BMP 11/07/17 04:01 Sodium 137 Potassium 4.6 Chloride 103 Carbon Dioxide 27 BUN 29 H Creatinine 0.65 Glucose 122 H Calcium 8.4 L - ABG Interpretation ABG results: ABG ABG pH 7.36 pH Units (7.32-7.45) 11/04/17 06:06 ABG pCO2 58 mmHg (35-45) H 11/04/17 06:06 ABG pO2 95 mmHg (85-104) 11/04/17 06:06 ABG O2 Saturation 97 % (95-98) 11/04/17 06:06 PT/INR, D-dimer PT 15.4 Seconds (9.4-12.1) H 11/03/17 04:24 - Pulse Oximetry Interpretation Digit-Finger Pulse Oximetry Readin (on 2L via NC) - Impressions Impressions Chest X-Ray 11/07/17 06:00 IMPRESSION: Stable thoracostomy tube positioning. No apparent pneumothorax/hydropneumothorax. Unchanged effusions and basilar opacities. D/ / Ke Vital / Ke Vital Interpreting Provider: Ke Vital - VTE Documentation of Mechanical Device: Intermittent pneumatic compression device Consult Discharge Plan - Plan Referrals: Manuelito Henry MD [Partnered Physician] - 12/06/17 2:20 pm Melo Vega DO [Primary Care Provider] - 11/15/17 2:15 pm <Galen Mark - Last Filed: 11/07/17 17:00> Date of Encounter: 11/07/17 - Assessment and plan (1) Acute respiratory failure with hypoxia Current Visit: Yes Status: Acute (2) Right lower lobe pneumonia Current Visit: Yes Status: Acute Qualifiers: Pneumonia type: due to Pneumococcus Qualified Code(s): J13 - Pneumonia due to Streptococcus pneumoniae (3) Bacteremia due to Streptococcus pneumoniae Current Visit: Yes Status: Acute (4) Empyema of right pleural space Current Visit: Yes Status: Acute (5) Pelvic mass Current Visit: Yes Status: Acute (6) Essential hypertension Current Visit: Yes Status: Chronic (7) A-fib Current Visit: Yes Status: Acute Qualifiers: Atrial fibrillation type: paroxysmal Qualified Code(s): I48.0 - Paroxysmal atrial fibrillation (8) DVT prophylaxis Current Visit: Yes Status: Acute (9) Sepsis Current Visit: Yes Status: Resolved Qualifiers: Sepsis type: Pneumococcus Qualified Code(s): A40.3 - Sepsis due to Streptococcus pneumoniae (10) Diabetes Current Visit: Yes Status: Chronic Qualifiers: Diabetes mellitus type: type 2 Diabetes mellitus custodial insulin use: without terminal system operator use Diabetes mellitus complication status: with hyperglycemia Qualified Code(s): E11.65 - Type 2 diabetes mellitus with hyperglycemia - Time Spent With Patient Total time spent is greater than 50% in coordination of care (as documented) at patient's floor/unit and/or counseling patient: - Constitutional Vitals: Temp Pulse Resp BP Pulse Ox 100.0 F H 88 18 174/79 95 11/07/17 16:11 11/07/17 16:41 11/07/17 16:11 11/07/17 16:11 11/07/17 16:11 Internal Medicine: Result - Labs CBC & Chem 7: 11/07/17 04:01 11/07/17 04:01 Labs: Short CBC 11/07/17 Range/Units 04:01 WBC 16.6 H (4.3-11.1) K/mcL Hgb 13.1 D (11.5-15.4) g/dL Hct 39.8 (35.3-44.9) % Plt Count 262 (140-400) K/mcL Neutrophils # 13.4 H (1.6-8.9) K/mcL BMP 11/07/17 04:01 Sodium 137 Potassium 4.6 Chloride 103 Carbon Dioxide 27 BUN 29 H Creatinine 0.65 Glucose 122 H Calcium 8.4 L - ABG Interpretation ABG results: ABG ABG pH 7.36 pH Units (7.32-7.45) 11/04/17 06:06 ABG pCO2 58 mmHg (35-45) H 11/04/17 06:06 ABG pO2 95 mmHg (85-104) 11/04/17 06:06 ABG O2 Saturation 97 % (95-98) 11/04/17 06:06 PT/INR, D-dimer PT 15.4 Seconds (9.4-12.1) H 11/03/17 04:24 - Impressions Impressions Chest X-Ray 11/07/17 06:00 IMPRESSION: Stable thoracostomy tube positioning. No apparent pneumothorax/hydropneumothorax. Unchanged effusions and basilar opacities. D/ / Ke Vital / Ke Vital Interpreting Provider: Ke Vital - Attending Attestation I examined this patient and my medical decision-making was reviewed with the Resident Physician on 11/07/17. I agree with the documented findings, disposition and treatment plan as described except to the extent set forth below. Ms Willis is currently admitted for acute pneumonia with empyema. She is s/ p VATS. Chest tubes removed today. She remains moderate to high risk due to potential for worsening clinical status. Ms Willis is feeling OK. No fever or chills. Chest tubes removed today. Up and moving some. Needs rehab at discharge. Exam alert. Comfortable Mucus membranes dry Heart distant Lungs diminished. Abd soft I/P 1. Empyema 2. Pneumococcus Further diagnoses and plan as above.
[2017-11-07] MEDS: cefTRIAXone 2,000 MG in Water for inj. (sterile) 20 ML 20 ML IVP SCH (11:43)
[2017-11-07] MEDS: Ondansetron 4 MG/2 ML VIAL IVP PRN (18:36)
[2017-11-08] MEDS: Ipratropium/Albuterol Neb 3 ML IH SCH ×7 (00:04→23:25)
[2017-11-08 03:42] LABS: Hematocrit 33.4 % (35.3-44.9); Mean Corpuscular HGB Conc 33.5 g/dL (31.6-35.5); Mean Corpuscular Hemoglobin 29.8 pg (28.0-33.3); Mean Corpuscular Volume 88.8 fL (83.0-100.0); Mean Platelet Volume 11.1 fL (9.4-12.4); Platelet Count 312 K/mcL (140-400); Red Blood Count 3.76 M/mcL (3.82-4.97); Red Cell Distribution Width 14.2 % (11.5-14.5); Segmented Neutrophils % 81.6 %
[2017-11-08 03:43] LABS: Basophils % 0.2 %; Eosinophils # 0.1 K/mcL (0.0-0.6); Eosinophils % 0.5 %; Lymphocytes % 10.6 %; Monocytes # 0.9 K/mcL (0.0-1.3); Monocytes % 5.1 %; Neutrophils # 14.9 K/mcL (1.6-8.9)
[2017-11-08 03:44] LABS: Hemoglobin 11.2 g/dL (11.5-15.4)
[2017-11-08 03:50] LABS: INR 1.4; Prothrombin Time 14.9 Seconds (9.4-12.1)
[2017-11-08 04:05] LABS: BUN/Creatinine Ratio 34 (6-26); Blood Urea Nitrogen 22 mg/dL (8-23); Calcium 7.8 mg/dL (8.6-10.3); Carbon Dioxide 28 mEq/L (23-29); Chloride 102 mEq/L (98-107); Glucose 108 mg/dL (70-105); Osmolality,Calculated 286 (280-300); Potassium 4.3 mEq/L (3.5-5.1); Sodium 136 mEq/L (136-145); eGFR For African Americans > 60 (> 60); eGFR For Non-African Americans > 60 (> 60)
[2017-11-08] MEDS: *HR* Heparin 5,000 UNIT/ML VIAL SQ SCH ×2 (06:00→18:54)
[2017-11-08 08:06] LABS: Albumin 2.1 g/dL (3.5-5.7)
--- NOTE | 2017-11-08 08:10 | Cardiothoracic Progress Note ---
Date of Encounter: 11/08/17 Time of Encounter: 08:08 - Assessment and plan (1) Empyema of right pleural space Current Visit: Yes Status: Acute The patient remained hemodynamic stable overnight. She is breathing comfortably. She has no complaints. The assessment and plan as outlined above was discussed with the patient and/or family members who expressed understanding and agreement. All questions were answered. - Subjective Procedure(s) Performed: POD#5 S/P Right VATS with decortication Interval history: The patient remained hemodynamic stable overnight. She has been ambulating in her room without difficulty. She has no complaints. Vital Signs, Last 4 Hours Temp Pulse Resp BP Pulse Ox 11/08/17 07:28 98.6 F 92 16 112/62 93 11/08/17 06:00 89 18 92 11/08/17 04:28 16 93 11/08/17 04:16 98.5 F 89 14 112/63 92 Oxgyen Flow Rate Oxygen Flow Rate (LPM) 2 Clinical Data, last 8 Hours Output, Urine Amount 200 Weight 11/06/17 11/07/17 11/08/17 23:59 23:59 23:59 Weight 87.5 kg 88.3 kg - Physical Examination General: Conversant, No Apparent Distress Neck: No JVD, Normal carotid pulses Cardiac: Reg Rate and Rhythm, Normal S1 and S2, No Murmur Incision: No signs of infection, Dry/intact dressing Lungs: Normal Breath Sounds (Left lung ospina), Decreased breath sounds (Right base) Neuro: Alert and responsive, No focal deficits noted Vascular: Normal capillary refill Extremities: No Clubbing, No Cyanosis, No Edema - Labs 11/08/17 03:24 11/08/17 03:24 Lab Results, Last 24 hours 11/08/17 11/08/17 11/08/17 03:24 03:24 03:24 WBC 18.3 H Hgb 11.2 L D Hct 33.4 L Plt Count 312 INR 1.4 Sodium 136 Potassium 4.3 Chloride 102 Carbon Dioxide 28 BUN 22 Creatinine 0.64 Glucose 108 H Calcium 7.8 L - VTE Documentation of Mechanical Device: Intermittent pneumatic compression device Consult Discharge Plan - Plan Referrals: Manuelito Henry MD [Partnered Physician] - 12/06/17 2:20 pm Melo Vega DO [Primary Care Provider] - 11/15/17 2:15 pm
[2017-11-08] MEDS: Insulin LISPRO 300 UNITS/3 ML VIAL SQ SCH ×4 (08:42→20:56)
[2017-11-08] MEDS: Cholecalciferol (D-3) 1,000 UNIT TABLET PO SCH (08:44)
[2017-11-08] MEDS: Aspirin 81 MG TAB.CHEW PO SCH (08:44)
[2017-11-08] MEDS: Acetaminophen 325 MG TABLET PO PRN (08:59)
[2017-11-08] MEDS: cefTRIAXone 2,000 MG in Water for inj. (sterile) 20 ML 20 ML IVP SCH (11:40)
[2017-11-08] MEDS: Famotidine 20 MG TABLET PO PRN (11:49)
--- NOTE | 2017-11-08 14:41 | Infectious Disease Consult ---
Date of Encounter: 11/08/17 Time of Encounter: 14:33 Assessment and Plan (1) Sepsis Status: Resolved Assessment and plan: Severe sepsis: The patient had two SIRS criteria plus lactic acidosis. Likely secondary to empyema and bacteremia. Improved. Tachycardia has resolved. She continues to have leukocytosis. Blood cultures drawn 10/30/17 were positive 2/2 sets for S. pneumoniae. Repeat blood cultures drawn 10/30/17 after initiation of antibiotics are negative 2/2 sets. Continues to have neutrophilic leukocytosis. Clinically, the patient appears to be doing well. Persistent leukocytosis could be a lag from her recent infection with acute worsening from removal of chest tube yesterday. Repeat CBC in the morning. If leukocytosis persists/worsens, consider CT chest to evaluate. Qualifiers: Sepsis type: Pneumococcus Qualified Code(s): A40.3 - Sepsis due to Streptococcus pneumoniae (2) Bacteremia due to Streptococcus pneumoniae Status: Acute Assessment and plan: Causative organism: Strep pneumoniae. Source: PNA and empyema. Blood cultures drawn 10/30/17 x 2 sets at [facility] are positive 2/2 sets. Repeat blood cultures drawn 10/30/17 after antibiotics were initiated were negative 2/2 sets. No endocarditis stigmata noted on exam. Low index of suspicion for IE. TTE negative for vegetations. Continue Rocephin 2 grams IV daily. Duration of treatment depends on the clinical picture. (3) Empyema of right pleural space Status: Acute Assessment and plan: Causative organism: S. pneumoniae. Likely secondary to pneumonia. CXR showed large right pleural effusion with right sided airspace disease concerning for atelectasis vs. PNA. CT of the chest showed large loculated pleural effusion and dense consolidation of the right lower lobe, concerning for PNA vs. malignancy. IR consulted. Status post chest tube placement 10/31/17 with ~20ml serous fluid drained. Pulmonology team consulted. Attempted TPA administration via CT to break up loculations, but repeat CT of the chest 11/02/17 showed persistent loculated pleural effusion moderate to large. Exudative. Cultures positive for S. pneumoniae. CTS was consulted. Status post VATS procedure 11/03/[address] Walden. Operative note reviewed. Loculations and murky pleural fluid noted intra-op. Cultures negative. Pathology negative for malignancy. Chest tube removed 11/07/[address] Henry. Clinically, the patient improved, but she has persistent leukocytosis. Could be lag from severe infection with acute worsening from chest tube removal yesterday. Repeat CBC in the AM. If worse, recommend repeating CT chest to evaluate. Continue Rocephin 2 grams IV daily. Duration of treatment depends on the clinical picture. (4) Acute respiratory failure with hypoxia Status: Acute Assessment and plan: Likely secondary to PNA and empyema. Improved. Management per the primary team. (5) Atrial fibrillation with rapid ventricular response Status: Resolved Assessment and plan: Likely secondary to sepsis. Resolved. Management per the primary team. (6) Pelvic mass Status: Acute Assessment and plan: Etiology not entirely clear, but concerning for malignancy. Recommend F[employer]NAGER Hem/Onc referral as an outpatient. (7) Diabetes Status: Chronic Assessment and plan: Recommend aggresive glucose monitoring and control. Management per the primary team. Qualifiers: Diabetes mellitus type: type 2 Diabetes mellitus buttermaker continuous churn insulin use: without mcfp use Diabetes mellitus complication status: with hyperglycemia Qualified Code(s): E11.65 - Type 2 diabetes mellitus with hyperglycemia (8) Oral lesion Status: Acute Assessment and plan: Location: Upper and lower lips. Resembles cold sores. Check HSV PCR. Infectious Disease HPI - Data of Consult Patient: new to practice Consult date: 11/08/17 Requesting Physician: Galen Mark DO Primary Care Provider: Melo Vega DO - Consult Narrative Reason for consult: Leukocytosis History of present illness: Ms. Willis is a 72 year old female medical history of asthma, GERD, hypertension, and restless leg syndrome. The patient was admitted to the hospital October 30 for sepsis, pleural effusion, and right lower lobe pneumonia. Her consulted November 08 for further recommendations regarding postoperative leukocytosis. Briefly, the patient is a 72-year-old female with past medical history as stated above. The patient presented to the emergency department at [facility] with complaints of shortness of breath, cough, fever and chills, and right lower chest pain. She had been evaluated at an urgent care over the weekend prior to admission and diagnosed with sinusitis and given prescriptions for Medrol dose pack, clindamycin, and Tessalon Pearls. It is unclear what medications that patient took, but she states she took two pills. She continued to have worsening shortness of breath, fatigue, malaise, cough, and right thoracic back pain so she had her son take her to the ER. Upon arrival to the ER , she was tachycardic and noted to have leukocytosis with bandemia and hypoxia. Additional laboratory studies revealed an elevated lactic acid and positive troponin. Blood cultures were obtained 2 sets. Urinalysis was negative. Showed a chest x-ray that showed a large right pleural effusion and right airspace disease concerning for atelectasis versus pneumonia. She was given a dose of IV Levaquin and transferred here for further evaluation. Shortly after transfer here, the patient had a CT of the chest showed a large loculated pleural effusion and dense consolidation in the right lower lobe concerning for pneumonia versus malignancy. There was also a partially visualized mesenteric soft tissue mass and a dedicated CT the abdomen and pelvis was recommended. On arrival here, she had an additional 2 sets of blood cultures drawn. Antibiotic therapy was broadened to include vancomycin and Levaquin. Patient went into A. fib RVR and due to her hypoxia she was requiring large amounts of O2 and was placed on BiPAP. Pulmonology was consulted to assist with management as well as the cardiology team. Blood cultures came back +2 out of 2 sets for strep pneumoniae. Her antibiotics were de-escalate it to Rocephin 2 g IV daily. Interventional radiology was consulted and was able to place a small bore chest tube. Approximately 20 mL of serous fluid was drained and sent for pathology, cell count, and culture. GMS stain was negative. Culture was positive for strep pneumo. The patient was evaluated by speech therapy due to concern for aspiration. She did undergo barium swallow that showed trace penetration of thin liquids. The patient continued to have leukocytosis and require large amounts of oxygen. A CT of the chest, abdomen, and pelvis showed persistent but improved loculated pleural effusion moderate to large as well as bilateral atelectasis versus infiltrates and a possible pelvic cyst. Cardiothoracic surgery was consulted and she was taken to the operating room on November 03 for video-assisted thoracotomy and decortication procedure by Dr. Walden. The operative note revealed a large amount of murky pleural fluid and loculations. Post-op the patient has done well clinically. Her leukocytosis had been getting better until yesterday when it went up to 16 and up again today to 18. Repeat chest x-ray showed unchanged pleural effusions and right basilar opacities. Her chest tube was pulled yesterday. She is currently on Rocephin IV 2 g daily. We have been asked to evaluate and make further recommendations. During my exam today, the patient endorses a history as stated above. She states that overall she feels much better. She denies any fevers or chills or rigors. She denies any headache or neck pain. She does report that she blew her nose earlier today and had some bloody drainage. She denies any nasal congestion, earache, or sore throat. She does report multiple scabbed lesions to her lips since having her surgery. She reports some shortness of breath when she has a cough and states that her cough is productive of a large amount of clear thick sputum. She denies any pain at the surgical site. She denies chest pain. She denies abdominal pain, urinary complaints, or appetite changes. She denies any nausea or vomiting or diarrhea. She states she did have 2 bowel movements today after she was given stool softeners. She denies any pain in her joints or extremities at this time. She does report chronic lumbar back pain that is at baseline. She denies any weakness or dizziness. She states the fatigue has resolved. She states she feels 100% better than when she came in and she is ready to go to rehabilitation. Home with her son. She does not work outside the home. She reports that her son was ill prior to her getting sick, but he got better. She also reports that her [id number] had been sick as well. She denies any other known contacts that were sick. She denies any tobacco, alcohol, or illicit drug use. The patient has allergies to Augmentin, azithromycin, and kephlex listed in her chart, but the patient is unaware of any medication allergies. CC: Galen Mark, DO Past Med Surg Social Fam HX - Past Medical History Attestation: Yes The following information was validated with the patient. Source: patient, old records reviewed, nursing notes reviewed Medical history: asthma, diabetes, GERD, hypertension, other Psychiatric history: no psych history - Past Surgical History Surgical History: no surgical history - Social History Smoking Status: Former smoker Smokeless Tobacco Status: No Alcohol use: none Drug use: none - Family History Brother Hx Family Cardiac Disorders: Yes Infectious Disease-CN:Meds Benzonatate [Tessalon] 100 mg PO TID #20 capsule 10/28/17 [Rx] Clindamycin [Cleocin] 300 mg PO TID #50 capsule 10/28/17 [Rx] Albuterol Neb [Proventil Neb] 2.5 mg IH Q6H PRN 10/30/17 [History] Albuterol Sulfate [Albuterol Inhaler] 2 puff IH QID PRN 10/30/17 [History] Aspirin [Lo-Dose Aspirin EC] 81 mg PO DAILY 10/30/17 [History] Cholecalciferol (Vitamin D3) [Vitamin D3] 5,000 unit PO QWEEK 10/30/17 [History] Liraglutide [Victoza 3-Kelvin] 1.2 mg PO DAILY 10/30/17 [History] Lisinopril 2.5 mg PO DAILY 10/30/17 [History] Meclizine HCl [Verticalm] 25 mg PO DAILY PRN 10/30/17 [History] Ranitidine HCl [Acid Parboiler] 150 mg PO BID PRN 10/30/17 [History] Sertraline [Zoloft] 50 mg PO DAILY 10/30/17 [History] methylPREDNISolone [Medrol] 4 mg PO PER PKG DI 10/30/17 [History] 3 Allergy/AdvReac Type Severity Reaction Status Date / Time Amoxicillin [From Augmentin] Allergy Rash Verified 10/30/17 10:40 azithromycin Allergy Hives Verified 10/30/17 10:40 cephalexin Allergy Rash Verified 10/30/17 10:40 clavulanic acid Allergy Rash Verified 10/30/17 10:40 [From Augmentin] doxycycline Allergy Rash Verified 10/30/17 10:40 omeprazole Allergy Rash Verified 10/30/17 10:40 All systems: reviewed and no additional remarkable complaints except as stated Exam - Constitutional Vitals: Temp Pulse Resp BP Pulse Ox 98.4 F 78 17 121/63 93 11/08/17 11:50 11/08/17 11:50 11/08/17 11:50 11/08/17 11:50 11/08/17 11:50 General appearance: average body habitus, cooperative, no acute distress - Head Head exam: Present: atraumatic, normal inspection, normocephalic - Eye Eye exam: Present: EOMI, normal appearance, PERRL Pupils: Present: normal accommodation Additional comments: No subconjunctival hemorrhage noted. - ENT ENT exam: Present: mucous membranes moist Additional comments: Multiple scabbed lesions noted to the upper and lower lips. - Neck Neck exam: Present: normal inspection. Absent: meningismus - Respiratory Respiratory exam: Present: CTAB. Absent: rales, respiratory distress, rhonchi, wheezes Additional comments: Surgical and chest tube site dressings noted to the right lateral chest wall C/D /I without crepitus, warmth, or tenderness. - Cardiovascular Cardiovascular exam: Present: RRR, +S1, +S2 - GI/Abdominal GI/Abdominal exam: Present: normal bowel sounds, soft. Absent: distended, tenderness - Extremities Exam Extremities exam: Present: normal inspection. Absent: joint swelling, pedal edema, tenderness - Back Exam Back exam: Present: normal inspection. Absent: paraspinal tenderness, vertebral tenderness - Neurological Exam Neurological exam: Present: alert, oriented X3, no focal deficits - Psychiatric Psychiatric exam: Present: normal affect, normal mood - Skin Skin exam: Present: dry, intact, normal color, warm Additional comments: No endocarditis stigmata noted. Infectious Disease CN: Results - Labs CBC & Chem 7: 11/08/17 03:24 11/08/17 03:24 Cultures: Cultures 11/03/17 09:45 Anaerobic Culture - Final Pleural Fluid No anaerobes were recovered. 11/03/17 09:45 Anaerobic Culture - Final Pleural Fluid No anaerobes were recovered. 10/31/17 13:09 Body Fluid Culture - Final Pleural Fluid Streptococcus pneumoniae 11/03/17 09:45 Gram Stain - Final Pleural Fluid Body Fluid Culture - Final 11/03/17 09:45 Body Fluid Culture - Final Pleural Fluid 10/30/17 16:15 Blood Culture - Final Peripheral Venipuncture No growth. 10/30/17 16:15 Blood Culture - Final Peripheral Venipuncture No growth. Serology: Serology 10/31/17 10/31/17 Range/Units 13:09 13:09 Pleural Fluid Volume 22.0 mL Pleural Appearance Cloudy A (Clear) Pleural pH 6.40 (No Ref Range) pH Units Pleural RBC 0.005 H (0.000 - 0.002) M/mcL Pleural Tot Nuc Cell > 36197 H (0-1000) TNC/mcL Pleural Neutrophils 75.0 % Pleural Band Neuts Test Not Performed Pleural Eosinophils Test Not Performed Pleural Basophils Test Not Performed Pleural Lymphocytes % 23.0 % Pleural Monocytes % 1.0 % Pleural Other Cells % 1.0 % Pleural Total Protein 4.2 (No Ref Range) g/dL Pleural LDH 793 (No Ref Range) Units/L Pleural Glucose < 10 (No Ref Range) mg/dL Pleural Cholesterol 65 (No Ref Range) mg/dL Pleural Triglycerides 101 (No Ref Range) mg/dL - VTE Documentation of Mechanical Device: Intermittent pneumatic compression device Consult Discharge Plan - Plan Referrals: Manuelito Henry MD [Partnered Physician] - 12/06/17 2:20 pm Melo Vega DO [Primary Care Provider] - 11/15/17 2:15 pm
--- NOTE | 2017-11-08 17:04 | Electrocardiograph Report ---
[place] [id number] Test Date: 2017-11-06 Pat Name: Armida Willis Department: 110 Room: 2N11 Gender: F Reconciliation Coordinator: : 1945 Requested By: Galen Mark Order Number: [id number] Reading MD: Kenneth Perez Measurements Intervals Notus Rate: 95 P: 11 FL: 130 QRS: -7 QRSD: 138 T: 139 QT: 358 QTc: 410 Interpretive Statements SINUS RHYTHM LEFT BUNDLE BRANCH BLOCK Electronically Signed On 11-08-2017 17:02:26 EDT by Kenneth Perez
--- NOTE | 2017-11-08 18:09 | Internal Med Progress Note ---
<KennediWolf - Last Filed: 11/08/17 18:03> Date of Encounter: 11/08/17 Time of Encounter: 17:00 - Assessment and plan (1) Right lower lobe pneumonia Current Visit: Yes Status: Acute Assessment and plan: RLL Pneumonia secondary to S. pneumo Improving clinically, but WBC trending up 15.7/16.6/18.3 Patient is overall improving and asymptomatic suspected acute leukocytosis due to removal of chest tube continue Rocephin (day 10) CT chest tomorrow AM if leukocytosis worsens Qualifiers: Pneumonia type: due to Pneumococcus Qualified Code(s): J13 - Pneumonia due to Streptococcus pneumoniae (2) Bacteremia due to Streptococcus pneumoniae Current Visit: Yes Status: Acute Assessment and plan: Blood culture from 10/30/17 with Strep pneumoniae bacteremia Repeat cultures are negative Rocephin (day 10) (3) Acute respiratory failure with hypoxia Current Visit: Yes Status: Acute Assessment and plan: Acute respiratory failure with hypoxia, s/p extubation The patient has used BiPAP intermittently, however is now saturating fine on 2L via NC Continue to use BiPAP overnight (4) Empyema of right pleural space Current Visit: Yes Status: Acute Assessment and plan: S/p VATS on 11/03/17 with decortication and surgical washout CT Chest on admission demonstrated loculated large right pleural effusion. Pleural fluid culture from 10/31/17 grew strep pneumo Continue Rocephin (Day 10) Continue Duonebs Continue Toradol prn pain Encourage early ambulation Encourage Spirometry use q1 hour 11/07/17 CXR shows unchanged right effusion and basilar opacities with no apparent pneumothorax/hydropneumothorax. Right sided chest tube was removed 11/07/17. Patient is clinically improving. Her SpO2 is 92% on 2L via NC. Cardiothoracic surgery following Physical therapy recommended inpatient rehab upon discharge. (5) Pelvic mass Current Visit: Yes Status: Acute Assessment and plan: CT demonstrated incidental finding of large likely pelvic (ovarian) originating mass abdominal extension suspicious for malignancy. Follow-up with oncology as an outpatient (6) Essential hypertension Current Visit: Yes Status: Chronic Assessment and plan: Patient's BP is better controlled today. Continue home medication Lisinopril 2.5mg PO daily Continue Metoprolol 25 mg BID (7) A-fib Current Visit: Yes Status: Acute Assessment and plan: CHADSVASC score: 5 (age, female, HTN, DM, diastolic CHF) The patient is now in sinus rhythm Anticoagulation was held due to VATS procedure, now on Heparin Cardiology recommends resuming Eliquis upon discharge Qualifiers: Atrial fibrillation type: paroxysmal Qualified Code(s): I48.0 - Paroxysmal atrial fibrillation (8) DVT prophylaxis Current Visit: Yes Status: Acute Assessment and plan: Heparin Cardiology recommends resumiing Eliquis for A fib upon discharge - Time Spent With Patient Total time spent is greater than 50% in coordination of care (as documented) at patient's floor/unit and/or counseling patient: Greater than 35 minutes - Subjective Interval history: 72F was transferred from [facility] ER with worsening SOB and RLL PNA and large right pleural effusion and WBC > 27K desating in the 80s. CT demonstrated empyema requiring VAT. She is doing better today but continues to have shortness of breath. Denied any cough. Complaints of acute back pain. Denies any headaches, vision changes, chest pain, abdominal pain, dysuria. Denies numbness, tingling, or weakness. She reports that she is using spirometry every hour. No f/c/n/v. No further acute complaints. Tolerating PO intake. - Constitutional Vitals: Temp Pulse Resp BP Pulse Ox 98.3 F 76 17 119/58 94 11/08/17 16:06 11/08/17 16:06 11/08/17 16:06 11/08/17 16:06 11/08/17 16:06 General appearance: Present: cooperative, A&O X 3, pleasant, no acute distress, answers questions appropriately - Head Head exam: Present: atraumatic, normocephalic - Eye Eye exam: Present: PERRL, conjuntiva pink, sclera anicteric Pupils: Present: PERRL - Neck Neck exam general surgery: Present: supple, trachea midline. Absent: lymphadenopathy - Respiratory Respiratory exam: Present: rales. Absent: accessory muscle use, rhonchi - Cardiovascular Cardiovascular exam: Present: RRR, +S1, +S2. Absent: diastolic murmur, gallop, rubs, systolic murmur - GI/Abdominal GI/Abdominal exam: Present: normal bowel sounds, soft, no peritoneal signs. Absent: distended, tenderness - Extremities Exam Extremities exam: Present: warm, radial pulses palpable and symmetrical. Absent : calf tenderness, cyanotic, pedal edema - Neurological Exam Neurological exam: Present: CN II-XII intact, oriented X3, no focal deficits. Absent: pronater drift, facial droop, speech deficit - Skin Skin exam: Present: dry, intact Internal Medicine: Result - Labs CBC & Chem 7: 11/08/17 03:24 11/08/17 03:24 Labs: Short CBC 11/08/17 Range/Units 03:24 WBC 18.3 H (4.3-11.1) K/mcL Hgb 11.2 L D (11.5-15.4) g/dL Hct 33.4 L (35.3-44.9) % Plt Count 312 (140-400) K/mcL Neutrophils # 14.9 H (1.6-8.9) K/mcL BMP 11/08/17 03:24 Sodium 136 Potassium 4.3 Chloride 102 Carbon Dioxide 28 BUN 22 Creatinine 0.64 Glucose 108 H Calcium 7.8 L Liver Function 11/08/17 Range/Units 03:24 Albumin 2.1 L (3.5-5.7) g/dL - ABG Interpretation ABG results: ABG ABG pH 7.36 pH Units (7.32-7.45) 11/04/17 06:06 ABG pCO2 58 mmHg (35-45) H 11/04/17 06:06 ABG pO2 95 mmHg (85-104) 11/04/17 06:06 ABG O2 Saturation 97 % (95-98) 11/04/17 06:06 PT/INR, D-dimer PT 14.9 Seconds (9.4-12.1) H 11/08/17 03:24 - VTE Documentation of Mechanical Device: Intermittent pneumatic compression device Consult Discharge Plan - Plan Referrals: Manuelito Henry MD [Partnered Physician] - 12/06/17 2:20 pm Melo Vega DO [Primary Care Provider] - 11/15/17 2:15 pm <Galen Mark - Last Filed: 11/08/17 18:49> Date of Encounter: 11/08/17 - Assessment and plan (1) Acute respiratory failure with hypoxia Current Visit: Yes Status: Acute (2) Right lower lobe pneumonia Current Visit: Yes Status: Acute Qualifiers: Pneumonia type: due to Pneumococcus Qualified Code(s): J13 - Pneumonia due to Streptococcus pneumoniae (3) Empyema of right pleural space Current Visit: Yes Status: Acute (4) Bacteremia due to Streptococcus pneumoniae Current Visit: Yes Status: Resolved (5) Pelvic mass Current Visit: Yes Status: Acute (6) Essential hypertension Current Visit: Yes Status: Chronic (7) A-fib Current Visit: Yes Status: Acute Qualifiers: Atrial fibrillation type: paroxysmal Qualified Code(s): I48.0 - Paroxysmal atrial fibrillation (8) DVT prophylaxis Current Visit: Yes Status: Acute - Time Spent With Patient Total time spent is greater than 50% in coordination of care (as documented) at patient's floor/unit and/or counseling patient: - Constitutional Vitals: Temp Pulse Resp BP Pulse Ox 98.3 F 76 17 119/58 94 11/08/17 16:06 11/08/17 16:06 11/08/17 16:06 11/08/17 16:06 11/08/17 16:06 Internal Medicine: Result - Labs CBC & Chem 7: 11/08/17 03:24 11/08/17 03:24 Labs: Short CBC 11/08/17 Range/Units 03:24 WBC 18.3 H (4.3-11.1) K/mcL Hgb 11.2 L D (11.5-15.4) g/dL Hct 33.4 L (35.3-44.9) % Plt Count 312 (140-400) K/mcL Neutrophils # 14.9 H (1.6-8.9) K/mcL BMP 11/08/17 03:24 Sodium 136 Potassium 4.3 Chloride 102 Carbon Dioxide 28 BUN 22 Creatinine 0.64 Glucose 108 H Calcium 7.8 L Liver Function 11/08/17 Range/Units 03:24 Albumin 2.1 L (3.5-5.7) g/dL - ABG Interpretation ABG results: ABG ABG pH 7.36 pH Units (7.32-7.45) 11/04/17 06:06 ABG pCO2 58 mmHg (35-45) H 11/04/17 06:06 ABG pO2 95 mmHg (85-104) 11/04/17 06:06 ABG O2 Saturation 97 % (95-98) 11/04/17 06:06 PT/INR, D-dimer PT 14.9 Seconds (9.4-12.1) H 11/08/17 03:24 - Attending Attestation I examined this patient and my medical decision-making was reviewed with the Resident Physician on 11/08/17. I agree with the documented findings, disposition and treatment plan as described except to the extent set forth below. Ms Willis is currently admitted for pneumonia and empyema. Her WBC has been increasing. She remains moderate to high risk due to potential for worsening clinical and respiratory status. Ms Willis is doing much better she feels. She has been ambulating. No fever. Dyspnea OK. Pain OK. WBC has increased. No other signs of new infection. Exam alert Comfortable Mucus membranes dry Heart reg No wheeze. Few crackles on R Abd soft I/P 1. PNA 2. Empyema Further diagnoses and plan as above.
[2017-11-09] MEDS: Acetaminophen 325 MG TABLET PO PRN ×2 (00:35→23:11)
[2017-11-09 03:56] LABS: Basophils % 0.2 %; Eosinophils # 0.1 K/mcL (0.0-0.6); Eosinophils % 0.4 %; Hematocrit 30.8 % (35.3-44.9); Hemoglobin 10.2 g/dL (11.5-15.4); Lymphocytes # 1.7 K/mcL (0.6-4.6); Lymphocytes % 9.7 %; Mean Corpuscular HGB Conc 33.1 g/dL (31.6-35.5); Mean Corpuscular Hemoglobin 29.5 pg (28.0-33.3); Mean Platelet Volume 11.1 fL (9.4-12.4); Monocytes # 1.2 K/mcL (0.0-1.3); Monocytes % 6.7 %; Neutrophils # 14.6 K/mcL (1.6-8.9); Platelet Count 355 K/mcL (140-400); Red Blood Count 3.46 M/mcL (3.82-4.97); Red Cell Distribution Width 13.9 % (11.5-14.5)
[2017-11-09 04:14] LABS: Albumin 2.2 g/dL (3.5-5.7); BUN/Creatinine Ratio 31 (6-26); Blood Urea Nitrogen 22 mg/dL (8-23); Calcium 7.6 mg/dL (8.6-10.3); Carbon Dioxide 27 mEq/L (23-29); Chloride 102 mEq/L (98-107); Glucose 154 mg/dL (70-105); Osmolality,Calculated 286 (280-300); Potassium 3.9 mEq/L (3.5-5.1); Sodium 135 mEq/L (136-145); eGFR For African Americans > 60 (> 60); eGFR For Non-African Americans > 60 (> 60)
[2017-11-09] MEDS: Ipratropium/Albuterol Neb 3 ML IH SCH ×6 (04:18→23:55)
[2017-11-09] MEDS: *HR* Heparin 5,000 UNIT/ML VIAL SQ SCH ×2 (06:09→16:39)
[2017-11-09] MEDS: Cholecalciferol (D-3) 1,000 UNIT TABLET PO SCH (08:16)
[2017-11-09] MEDS: Aspirin 81 MG TAB.CHEW PO SCH (08:16)
[2017-11-09] MEDS: Insulin LISPRO 300 UNITS/3 ML VIAL SQ SCH ×4 (08:16→22:04)
[2017-11-09] MEDS ORDERED: Isovue-370 500 ML INFUS..BTL IV ONE (08:49)
--- NOTE | 2017-11-09 09:08 | Cardiothoracic Progress Note ---
Date of Encounter: 11/09/17 Time of Encounter: 09:07 - Assessment and plan (1) Empyema of right pleural space Current Visit: Yes Status: Acute The patient remained hemodynamic stable overnight. She is breathing comfortably. She has no complaints. Although clinically she has improved, she did have a single elevated temperature last night and her white count remains elevated. A chest CT will be repeated today to reevaluate the right lung process. The assessment and plan as outlined above was discussed with the patient and/or family members who expressed understanding and agreement. All questions were answered. - Subjective Procedure(s) Performed: POD#6 S/P Right VATS with decortication Interval history: The patient remained hemodynamic stable overnight. She has been ambulating in her room without difficulty. She has no complaints. Vital Signs, Last 4 Hours Temp Pulse Resp BP Pulse Ox 11/09/17 07:21 97.6 F 74 18 128/68 100 11/09/17 07:18 18 96 Oxgyen Flow Rate Oxygen Flow Rate (LPM) 7 Weight 11/07/17 11/08/17 11/09/17 23:59 23:59 23:59 Weight 87.5 kg 88.3 kg 88 kg - Physical Examination General: Conversant, No Apparent Distress Neck: No JVD, Normal carotid pulses Cardiac: Reg Rate and Rhythm, Normal S1 and S2, No Murmur Incision: No signs of infection, Dry/intact dressing Lungs: Normal Breath Sounds, No Wheeze, Rales, Rhonchi Neuro: Alert and responsive, No focal deficits noted Vascular: Normal capillary refill Musculoskeletal: No Chest Wall Tenderness Extremities: No Clubbing, No Cyanosis, No Edema - Labs 11/09/17 03:38 11/09/17 03:38 Lab Results, Last 24 hours 11/09/17 11/09/17 03:38 03:38 WBC 17.8 H Hgb 10.2 L Hct 30.8 L Plt Count 355 Sodium 135 L Potassium 3.9 Chloride 102 Carbon Dioxide 27 BUN 22 Creatinine 0.70 Glucose 154 H Calcium 7.6 L - Imaging Chest Xray: image reviewed (No pneumothorax. Improved aeration in the right base.) - VTE Documentation of Mechanical Device: Intermittent pneumatic compression device Consult Discharge Plan - Plan Referrals: Manuelito Henry MD [Partnered Physician] - 12/06/17 2:20 pm Melo Vega DO [Primary Care Provider] - 11/15/17 2:15 pm
[2017-11-09] MEDS: cefTRIAXone 2,000 MG in Water for inj. (sterile) 20 ML 20 ML IVP SCH (11:22)
--- NOTE | 2017-11-09 11:24 | Internal Med Progress Note ---
<Wolf Kolb - Last Filed: 11/09/17 15:46> Date of Encounter: 11/09/17 Time of Encounter: 11:25 - Assessment and plan (1) Bacteremia due to Streptococcus pneumoniae Current Visit: Yes Status: Resolved Assessment and plan: Blood culture from 10/30/17 with Strep pneumoniae bacteremia Repeat cultures are negative x2 Patient continues to have acute leukocytosis Patient had fever overnight of 102.2 She denies any chills, nausea, vomiting or signs of infection. ID following and recommends to continue trending CBC Rocephin (day 11) (2) Empyema of right pleural space Current Visit: Yes Status: Acute Assessment and plan: S/p VATS on 11/03/17 with decortication and surgical washout CT Chest on admission demonstrated loculated large right pleural effusion. Repeat CT demonstrates near complete resolution. Pleural fluid culture from 10/31/17 grew strep pneumo Continue Rocephin (Day 11) Continue Duonebs Continue Toradol prn pain Encourage early ambulation Encourage Spirometry use q1 hour Right sided chest tube was removed 11/07/[address] Henry Patient is clinically improving. Her SpO2 is 92% on 2L via NC. Completed PT, missed OT Continue to monitor with AM labs. (3) Acute respiratory failure with hypoxia Current Visit: Yes Status: Acute Assessment and plan: Acute respiratory failure with hypoxia, s/p extubation The patient has used BiPAP intermittently, however is now saturating fine on 2L via NC Continue to use BiPAP overnight (4) Pelvic mass Current Visit: Yes Status: Acute Assessment and plan: CT demonstrated incidental finding of large likely pelvic (ovarian) originating mass abdominal extension suspicious for malignancy. Follow-up with oncology as an outpatient (5) Essential hypertension Current Visit: Yes Status: Chronic Assessment and plan: Patient's BP is better controlled today. Continue home medication Lisinopril 2.5mg PO daily Continue Metoprolol 25 mg BID (6) A-fib Current Visit: Yes Status: Acute Assessment and plan: CHADSVASC score: 5 (age, female, HTN, DM, diastolic CHF) The patient is now in sinus rhythm Anticoagulation was held due to VATS procedure, now on Heparin Cardiology recommends resuming Eliquis upon discharge Qualifiers: Atrial fibrillation type: paroxysmal Qualified Code(s): I48.0 - Paroxysmal atrial fibrillation (7) DVT prophylaxis Current Visit: Yes Status: Acute Assessment and plan: Heparin Cardiology recommends resumiing Eliquis for A fib upon discharge (8) Sepsis Current Visit: Yes Status: Acute Assessment and plan: The patient had two SIRS criteria plus lactic acidosis, secondary to empyema and bacteremia (strep pneumoniae) Repeat CT demonstrates mild patchy airspace disease within the right lower lobe which has significantly improved since last previous exam. The previously noted large right pleural effusion has nearly resolved. Improving clinically, but WBC continues to be elevated: 16.6/18.3/17.8 suspected acute leukocytosis due to removal of chest tube continue Rocephin (day 11) Continue to monitor with AM labs Qualifiers: Qualified Code(s): A40.3 - Sepsis due to Streptococcus pneumoniae - Time Spent With Patient Total time spent is greater than 50% in coordination of care (as documented) at patient's floor/unit and/or counseling patient: Greater than 35 minutes - Subjective Interval history: 72F was transferred from [facility] ER with worsening SOB and RLL PNA and large right pleural effusion and WBC > 27K desating in the 80s. CT demonstrated empyema requiring VAT. She continues to improve. Denied any f/c/n/v, cough, headaches, vision changes, chest pain, abdominal pain, dysuria. Denies numbness , tingling, or weakness. She reports that she is using spirometry every hour. No further acute complaints. Tolerating PO intake. +BM and voiding without difficulty. - Constitutional Vitals: Temp Pulse Resp BP Pulse Ox 97.6 F 74 18 128/68 100 11/09/17 07:21 11/09/17 07:21 11/09/17 07:21 11/09/17 07:21 11/09/17 07:21 General appearance: Present: cooperative, A&O X 3, pleasant, no acute distress, answers questions appropriately - Head Head exam: Present: atraumatic, normocephalic - Eye Eye exam: Present: PERRL, conjuntiva pink, sclera anicteric Pupils: Present: PERRL - Neck Neck exam general surgery: Present: supple, trachea midline. Absent: lymphadenopathy - Respiratory Respiratory exam: Present: CTAB, rales. Absent: accessory muscle use, rhonchi - Cardiovascular Cardiovascular exam: Present: RRR, +S1, +S2. Absent: diastolic murmur, gallop, rubs, systolic murmur - GI/Abdominal GI/Abdominal exam: Present: normal bowel sounds, soft, no peritoneal signs. Absent: distended, tenderness - Extremities Exam Extremities exam: Present: warm, radial pulses palpable and symmetrical. Absent : calf tenderness, cyanotic, pedal edema - Neurological Exam Neurological exam: Present: CN II-XII intact, oriented X3, no focal deficits. Absent: pronater drift, facial droop, speech deficit - Skin Skin exam: Present: dry, intact Internal Medicine: Result - Labs CBC & Chem 7: 11/09/17 03:38 11/09/17 03:38 Labs: Short CBC 11/09/17 Range/Units 03:38 WBC 17.8 H (4.3-11.1) K/mcL Hgb 10.2 L (11.5-15.4) g/dL Hct 30.8 L (35.3-44.9) % Plt Count 355 (140-400) K/mcL Neutrophils # 14.6 H (1.6-8.9) K/mcL BMP 11/09/17 03:38 Sodium 135 L Potassium 3.9 Chloride 102 Carbon Dioxide 27 BUN 22 Creatinine 0.70 Glucose 154 H Calcium 7.6 L Liver Function 11/09/17 Range/Units 03:38 Albumin 2.2 L (3.5-5.7) g/dL - ABG Interpretation ABG results: ABG ABG pH 7.36 pH Units (7.32-7.45) 11/04/17 06:06 ABG pCO2 58 mmHg (35-45) H 11/04/17 06:06 ABG pO2 95 mmHg (85-104) 11/04/17 06:06 ABG O2 Saturation 97 % (95-98) 11/04/17 06:06 PT/INR, D-dimer PT 14.9 Seconds (9.4-12.1) H 11/08/17 03:24 - Impressions Impressions Chest X-Ray 11/09/17 06:00 IMPRESSION: No pneumothorax following chest tube removal. Blunting of the costophrenic angle bilaterally likely from small residual pleural effusion. Scarring is also considered. Decreasing basilar airspace disease particularly on the left. D/ / Venu Amador MD / Venu Amador MD Interpreting Provider: Venu Amador MD Chest CT 11/09/17 08:49 IMPRESSION: Mild patchy airspace disease within the right lower lobe which has significantly improved since previous exam. Tiny bilateral pleural effusions. The previously noted large right pleural effusion has nearly resolved. Stable large right paratracheal lymph node measuring 3 cm x 1.6 cm. Cholelithiasis. D/ / 11/09/2017 10:52:51 Hai Murillo MD / melanie Interpreting Provider: Hai Murillo MD - VTE Documentation of Mechanical Device: Intermittent pneumatic compression device Consult Discharge Plan - Plan Referrals: Manuelito Henry MD [Partnered Physician] - 12/06/17 2:20 pm Melo Vega DO [Primary Care Provider] - 11/15/17 2:15 pm <Galen Mark - Last Filed: 11/09/17 19:01> Date of Encounter: 11/09/17 - Assessment and plan (1) Acute respiratory failure with hypoxia Current Visit: Yes Status: Acute (2) Sepsis Current Visit: Yes Status: Acute Qualifiers: Sepsis type: Pneumococcus Qualified Code(s): A40.3 - Sepsis due to Streptococcus pneumoniae (3) Bacteremia due to Streptococcus pneumoniae Current Visit: Yes Status: Resolved (4) Empyema of right pleural space Current Visit: Yes Status: Acute (5) Pelvic mass Current Visit: Yes Status: Acute (6) Essential hypertension Current Visit: Yes Status: Chronic (7) A-fib Current Visit: Yes Status: Acute Qualifiers: Atrial fibrillation type: paroxysmal Qualified Code(s): I48.0 - Paroxysmal atrial fibrillation (8) DVT prophylaxis Current Visit: Yes Status: Acute - Time Spent With Patient Total time spent is greater than 50% in coordination of care (as documented) at patient's floor/unit and/or counseling patient: - Constitutional Vitals: Temp Pulse Resp BP Pulse Ox 99.2 F 75 18 148/56 94 11/09/17 16:24 11/09/17 16:24 11/09/17 16:24 11/09/17 16:24 11/09/17 16:24 Internal Medicine: Result - Labs CBC & Chem 7: 11/09/17 03:38 11/09/17 03:38 Labs: Short CBC 11/09/17 Range/Units 03:38 WBC 17.8 H (4.3-11.1) K/mcL Hgb 10.2 L (11.5-15.4) g/dL Hct 30.8 L (35.3-44.9) % Plt Count 355 (140-400) K/mcL Neutrophils # 14.6 H (1.6-8.9) K/mcL BMP 11/09/17 03:38 Sodium 135 L Potassium 3.9 Chloride 102 Carbon Dioxide 27 BUN 22 Creatinine 0.70 Glucose 154 H Calcium 7.6 L Liver Function 11/09/17 Range/Units 03:38 Albumin 2.2 L (3.5-5.7) g/dL - ABG Interpretation ABG results: ABG ABG pH 7.36 pH Units (7.32-7.45) 11/04/17 06:06 ABG pCO2 58 mmHg (35-45) H 11/04/17 06:06 ABG pO2 95 mmHg (85-104) 11/04/17 06:06 ABG O2 Saturation 97 % (95-98) 11/04/17 06:06 PT/INR, D-dimer PT 14.9 Seconds (9.4-12.1) H 11/08/17 03:24 - Impressions Impressions Chest X-Ray 11/09/17 06:00 IMPRESSION: No pneumothorax following chest tube removal. Blunting of the costophrenic angle bilaterally likely from small residual pleural effusion. Scarring is also considered. Decreasing basilar airspace disease particularly on the left. D/ / Venu Amador MD / Venu Amador MD Interpreting Provider: Venu Amador MD Chest CT 11/09/17 08:49 IMPRESSION: Mild patchy airspace disease within the right lower lobe which has significantly improved since previous exam. Tiny bilateral pleural effusions. The previously noted large right pleural effusion has nearly resolved. Stable large right paratracheal lymph node measuring 3 cm x 1.6 cm. Cholelithiasis. D/ / 11/09/2017 10:52:51 Hai Murillo MD / melanie Interpreting Provider: Hai Murillo MD - Attending Attestation I examined this patient and my medical decision-making was reviewed with the Resident Physician on 11/09/17. I agree with the documented findings, disposition and treatment plan as described except to the extent set forth below. Ms Willis is currently admitted for pneumococcal pneumonia and empyema. She had fever last evening and WBC remains elevated. She remains moderate to high risk due to potential for worsening clinical status. Ms Willis had a fever last evening. None now. She has frontal headache and continues to cough. No GI issues. WBC still elevated. Ears hurt as well. Exam alert Comfortable Mucus membranes dry Heart reg Few crackles Abd soft I/P 1. Fever 2. Anemia - recheck tomorrow 3. Leukocytosis - recheck CT Check RIP. Further diagnoses and plan as above.
--- NOTE | 2017-11-09 11:29 | Infectious Disease Progress No ---
Date of Encounter: 11/09/17 Time of Encounter: 11:27 - Assessment and Plan (1) Sepsis Current Visit: Yes Status: Resolved Severe sepsis: The patient had two SIRS criteria plus lactic acidosis. Likely secondary to empyema and bacteremia. Improved. Tachycardia has resolved. She continues to have leukocytosis. She also had a fever overnight. Blood cultures drawn 10/30/17 were positive 2/2 sets for S. pneumoniae. Repeat blood cultures drawn 10/30/17 after initiation of antibiotics are negative 2/2 sets. Continues to have neutrophilic leukocytosis. Clinically, the patient appears to be doing well. Persistent leukocytosis could be a lag from her recent infection with acute worsening from removal of chest tube. Her WBC remains elevated, but improved today. Repeat CBC in the morning. CT chest pending. Qualifiers: Qualified Code(s): A40.3 - Sepsis due to Streptococcus pneumoniae (2) Bacteremia due to Streptococcus pneumoniae Current Visit: Yes Status: Resolved Causative organism: Strep pneumoniae. Source: PNA and empyema. Blood cultures drawn 10/30/17 x 2 sets at [facility] are positive 2/2 sets. Repeat blood cultures drawn 10/30/17 after antibiotics were initiated were negative 2/2 sets. No endocarditis stigmata noted on exam. Low index of suspicion for IE. TTE negative for vegetations. Continue Rocephin 2 grams IV daily. Duration of treatment depends on the clinical picture. (3) Empyema of right pleural space Current Visit: Yes Status: Acute Causative organism: S. pneumoniae. Likely secondary to pneumonia. CXR showed large right pleural effusion with right sided airspace disease concerning for atelectasis vs. PNA. CT of the chest showed large loculated pleural effusion and dense consolidation of the right lower lobe, concerning for PNA vs. malignancy. IR consulted. Status post chest tube placement 10/31/17 with ~20ml serous fluid drained. Pulmonology team consulted. Attempted TPA administration via CT to break up loculations, but repeat CT of the chest 11/02/17 showed persistent loculated pleural effusion moderate to large. Exudative. Cultures positive for S. pneumoniae. CTS was consulted. Status post VATS procedure 11/03/[address] Walden. Operative note reviewed. Loculations and murky pleural fluid noted intra-op. Cultures negative. Pathology negative for malignancy. Chest tube removed 11/07/[address] Henry. Clinically, the patient improved, but she has persistent leukocytosis. Could be lag from severe infection with acute worsening from chest tube removal yesterday. CT chest pending. Repeat CBC in the AM. Continue Rocephin 2 grams IV daily. Duration of treatment depends on the clinical picture. (4) Acute respiratory failure with hypoxia Current Visit: Yes Status: Acute Likely secondary to PNA and empyema. Improved. Management per the primary team. (5) Atrial fibrillation with rapid ventricular response Current Visit: Yes Status: Resolved Likely secondary to sepsis. Resolved. Management per the primary team. (6) Pelvic mass Current Visit: Yes Status: Acute Etiology not entirely clear, but concerning for malignancy. Recommend [facility] Hem/Onc referral as an outpatient. (7) Diabetes Current Visit: Yes Status: Chronic Recommend aggresive glucose monitoring and control. Management per the primary team. Qualifiers: Qualified Code(s): E11.65 - Type 2 diabetes mellitus with hyperglycemia (8) Oral lesion Current Visit: Yes Status: Acute Location: Upper and lower lips. Resembles cold sores. Check HSV PCR. Wrong swab collected yesterday by nursing. Requested specimen be re-collected KATYA. - Subjective Interval history: Patient seen and examined. No acute events noted overnight. Patient sitting up in the wheelchair at the side of the bed getting ready to go for a walk with her son. Reports fever overnight with associated chills, but denies rigors. Denies chest pain, shortness of breath. Reports a cough productive a large amount of clear sputum this morning. Denies nausea, vomiting, or diarrhea. Denies abdominal pain, urinary complaints, or appetite changes. States her lip lesions are improved. Denies oral thrush or new skin lesions. Denies pain at the surgical site. Infect Dis PN-Objective Data - Labs CBC & Chem 7: 11/09/17 03:38 11/09/17 03:38 Labs: Laboratory Results - last 24 hr 11/08/17 11/08/17 11/08/17 07:26 12:03 16:09 WBC RBC Hgb Hct MCV MCH MCHC RDW Plt Count MPV Immature Gran % Seg Neutrophils % Lymphocytes % Monocytes % Eosinophils % Basophils % Neutrophils # Lymphocytes # Monocytes # Eosinophils # Basophils # Sodium Potassium Chloride Carbon Dioxide BUN Creatinine Est GFR ( Amer) Est GFR (Non-Af Amer) BUN/Creatinine Ratio Glucose POC Glucose 137 H 122 H 132 H Calculated Osmolality Calcium Albumin Herpes Simplex Source HSV I HSV II Specimen Rejected 11/08/17 11/08/17 11/08/17 16:30 16:30 19:50 WBC RBC Hgb Hct MCV MCH MCHC RDW Plt Count MPV Immature Gran % Seg Neutrophils % Lymphocytes % Monocytes % Eosinophils % Basophils % Neutrophils # Lymphocytes # Monocytes # Eosinophils # Basophils # Sodium Potassium Chloride Carbon Dioxide BUN Creatinine Est GFR ( Amer) Est GFR (Non-Af Amer) BUN/Creatinine Ratio Glucose POC Glucose 158 H Calculated Osmolality Calcium Albumin Herpes Simplex Source Lip lesions HSV I TNP HSV II TNP Specimen Rejected Container 11/09/17 11/09/17 11/09/17 03:38 03:38 07:26 WBC 17.8 H RBC 3.46 L Hgb 10.2 L Hct 30.8 L MCV 89.0 MCH 29.5 MCHC 33.1 RDW 13.9 Plt Count 355 MPV 11.1 Immature Gran % 1.0 Seg Neutrophils % 82.0 Lymphocytes % 9.7 Monocytes % 6.7 Eosinophils % 0.4 Basophils % 0.2 Neutrophils # 14.6 H Lymphocytes # 1.7 Monocytes # 1.2 Eosinophils # 0.1 Basophils # 0.0 Sodium 135 L Potassium 3.9 Chloride 102 Carbon Dioxide 27 BUN 22 Creatinine 0.70 Est GFR ( Amer) > 60 Est GFR (Non-Af Amer) > 60 BUN/Creatinine Ratio 31 H Glucose 154 H POC Glucose 105 H Calculated Osmolality 286 Calcium 7.6 L Albumin 2.2 L Herpes Simplex Source HSV I HSV II Specimen Rejected Cultures: Cultures 11/03/17 09:45 Anaerobic Culture - Final Pleural Fluid No anaerobes were recovered. 11/03/17 09:45 Anaerobic Culture - Final Pleural Fluid No anaerobes were recovered. 10/31/17 13:09 Body Fluid Culture - Final Pleural Fluid Streptococcus pneumoniae 11/03/17 09:45 Gram Stain - Final Pleural Fluid Body Fluid Culture - Final 11/03/17 09:45 Body Fluid Culture - Final Pleural Fluid 10/30/17 16:15 Blood Culture - Final Peripheral Venipuncture No growth. 10/30/17 16:15 Blood Culture - Final Peripheral Venipuncture No growth. Serology 11/08/17 10/31/17 10/31/17 Range/Units 16:30 13:09 13:09 Pleural Fluid Volume 22.0 mL Pleural Appearance Cloudy A (Clear) Pleural pH 6.40 (No Ref Range) pH Units Pleural RBC 0.005 H (0.000 - 0.002) M/mcL Pleural Tot Nuc Cell > 82761 H (0-1000) TNC/mcL Pleural Neutrophils 75.0 % Pleural Band Neuts Test Not Performed Pleural Eosinophils Test Not Performed Pleural Basophils Test Not Performed Pleural Lymphocytes % 23.0 % Pleural Monocytes % 1.0 % Pleural Other Cells % 1.0 % Pleural Total Protein 4.2 (No Ref Range) g/dL Pleural LDH 793 (No Ref Range) Units/L Pleural Glucose < 10 (No Ref Range) mg/dL Pleural Cholesterol 65 (No Ref Range) mg/dL Pleural Triglycerides 101 (No Ref Range) mg/dL Herpes Simplex Source Lip lesions HSV I TNP HSV II TNP - Impressions Impressions Chest X-Ray 11/09/17 06:00 IMPRESSION: No pneumothorax following chest tube removal. Blunting of the costophrenic angle bilaterally likely from small residual pleural effusion. Scarring is also considered. Decreasing basilar airspace disease particularly on the left. D/ / Venu Amador MD / Venu Amador MD Interpreting Provider: Venu Amador MD Chest CT 11/09/17 08:49 IMPRESSION: Mild patchy airspace disease within the right lower lobe which has significantly improved since previous exam. Tiny bilateral pleural effusions. The previously noted large right pleural effusion has nearly resolved. Stable large right paratracheal lymph node measuring 3 cm x 1.6 cm. Cholelithiasis. D/ / 11/09/2017 10:52:51 Hai Murillo MD / [facility] Interpreting Provider: Hai Murillo MD Exam - Constitutional Vitals: Temp Pulse Resp BP Pulse Ox 97.6 F 74 18 128/68 100 11/09/17 07:21 11/09/17 07:21 11/09/17 07:21 11/09/17 07:21 11/09/17 07:21 General appearance: average body habitus, cooperative, no acute distress - Head Head exam: Present: atraumatic, normal inspection, normocephalic - Eye Eye exam: Present: EOMI, normal appearance, PERRL Pupils: Present: normal accommodation - ENT ENT exam: Present: mucous membranes moist - Neck Neck exam: Present: normal inspection - Respiratory Respiratory exam: Present: CTAB. Absent: rales, respiratory distress, rhonchi, wheezes Additional comments: Surgical and chest tube sites noted to the right lateral chest wall with dressing C/D/I. No crepitus or tenderness noted. - Cardiovascular Cardiovascular exam: Present: RRR, +S1, +S2 - GI/Abdominal GI/Abdominal exam: Present: normal bowel sounds, soft. Absent: distended, tenderness - Extremities Exam Extremities exam: Present: normal inspection. Absent: joint swelling, pedal edema, tenderness - Back Exam Back exam: Present: normal inspection. Absent: paraspinal tenderness, vertebral tenderness - Neurological Exam Neurological exam: Present: alert, oriented X3, no focal deficits - Psychiatric Psychiatric exam: Present: normal affect, normal mood - Skin Skin exam: Present: dry, intact, normal color, warm - VTE Documentation of Mechanical Device: Intermittent pneumatic compression device Consult Discharge Plan - Plan Referrals: Manuelito Henry MD [Partnered Physician] - 12/06/17 2:20 pm Melo Vega DO [Primary Care Provider] - 11/15/17 2:15 pm
[2017-11-09 11:51] LABS: HSV Source LIP LESIONS
[2017-11-09 13:48] LABS: HSV 2 DNA Not Detected (Not Detect)
[2017-11-09 20:04] LABS: Adenovirus Not Detected (Not Detect); Bordetella Pertussis Not Detected (Not Detect); Chlamydophila pneumoniae Not Detected (Not Detect); Coronavirus 229E Not Detected (Not Detect); Coronavirus HKU1 Not Detected (Not Detect); Coronavirus NL63 Not Detected (Not Detect); Coronavirus OC43 Not Detected (Not Detect); Human Metapneumovirus Not Detected (Not Detect); Human Rhinovirus/Enterovirus Not Detected (Not Detect); Influenza A Subtype 2009 H1 Not Detected (Not Detect); Influenza A Untypeable Not Detected (Not Detect); Influenza B Not Detected (Not Detect); Mycoplasma pneumoniae Not Detected (Not Detect); Parainfluenza Virus 1 Not Detected (Not Detect); Parainfluenza Virus 2 Not Detected (Not Detect); Parainfluenza Virus 3 Not Detected (Not Detect); Parainfluenza Virus 4 Not Detected (Not Detect); Respiratory Syncytial Virus Not Detected (Not Detect)
[2017-11-10 03:07] LABS: Bilirubin,Urine Negative (Negative); Blood,Urine Negative (Negative); Clarity,Urine Clear (Clear); Color,Urine Yellow (Yellow); Glucose,Urine (UA) Normal (Normal); Ketones,Urine Negative (Negative); Leukocyte Esterase,Urine Negative (Negative); Nitrite,Urine Negative (Negative); PH,Urine 6.5 pH Units (5.0-8.0); Protein,Urine Trace mg/dL (Neg-Trace); Specific Gravity,Urine 1.022 (1.010-1.025); Urobilinogen,Urine Normal (Normal)
[2017-11-10 03:09] LABS: Bacteria,Urine None Seen per hpf (None-Few); Hyaline Casts,Urine None Seen per lpf (None-Few); RBC,Urine 15-30 per hpf (0-3); Squamous Epithelial Cell,Urine Many per lpf (None-Few)
[2017-11-10] MEDS: Ipratropium/Albuterol Neb 3 ML IH SCH ×6 (03:53→23:53)
[2017-11-10 05:25] LABS: Basophils % 0.3 %; Eosinophils # 0.1 K/mcL (0.0-0.6); Eosinophils % 0.8 %; Hematocrit 29.5 % (35.3-44.9); Hemoglobin 9.8 g/dL (11.5-15.4); Immature Granulocytes % 0.8 % (0-4); Lymphocytes # 1.2 K/mcL (0.6-4.6); Lymphocytes % 8.5 %; Mean Corpuscular HGB Conc 33.2 g/dL (31.6-35.5); Mean Corpuscular Hemoglobin 29.9 pg (28.0-33.3); Mean Corpuscular Volume 89.9 fL (83.0-100.0); Monocytes # 0.9 K/mcL (0.0-1.3); Monocytes % 6.4 %; Neutrophils # 11.9 K/mcL (1.6-8.9); Platelet Count 418 K/mcL (140-400); Red Blood Count 3.28 M/mcL (3.82-4.97); Red Cell Distribution Width 13.9 % (11.5-14.5); Segmented Neutrophils % 83.2 %
[2017-11-10] MEDS: *HR* Heparin 5,000 UNIT/ML VIAL SQ SCH ×2 (06:41→18:11)
[2017-11-10 07:41] LABS: BUN/Creatinine Ratio 24 (6-26); Blood Urea Nitrogen 14 mg/dL (8-23); Carbon Dioxide 29 mEq/L (23-29); Chloride 103 mEq/L (98-107); Glucose 129 mg/dL (70-105); Osmolality,Calculated 286 (280-300); Potassium 4.1 mEq/L (3.5-5.1); Sodium 137 mEq/L (136-145); eGFR For African Americans > 60 (> 60); eGFR For Non-African Americans > 60 (> 60)
[2017-11-10] MEDS: Aspirin 81 MG TAB.CHEW PO SCH (07:56)
[2017-11-10] MEDS: Cholecalciferol (D-3) 1,000 UNIT TABLET PO SCH (07:56)
[2017-11-10] MEDS: Insulin LISPRO 300 UNITS/3 ML VIAL SQ SCH ×4 (07:56→20:48)
[2017-11-10] MEDS: Ondansetron 4 MG/2 ML VIAL IVP PRN (09:11)
--- NOTE | 2017-11-10 09:40 | Cardiothoracic Progress Note ---
Date of Encounter: 11/10/17 Time of Encounter: 09:37 - Subjective Procedure(s) Performed: Patient seen and examined. She is having some abdominal discomfort this morning. Otherwise, uneventful night and doing well. She notably had a CT scan of the chest which I reviewed and demonstrates some evidence of resolving right lower lobe pneumonia. Discussed at the bedside with nursing staff plans for increased activity. Patient states her bowels are working. She continues to have a productive cough consistent with her underlying pneumonia. Discussed plans for possible transfer to [facility] tomorrow. Her dressings were taken down and her wounds examined, they appear clean dry and intact. Interval history: Patient seen and examined. In summary, Mrs. Willis is a 72-year-old diabetic female who became ill by her report approximately 1-2 weeks ago. She was admitted to the hospital and found to have a loculated right pleural effusion and underwent placement of a IR guided right pleural drain with some improvement of her pleural effusion as evidenced by a repeat CAT scan performed today. She notably has a persistent leukocytosis and still has a large loculated right pleural effusion with atelectasis versus infiltrate her right lower lobe. On prednisone empirically and is also on antibiotics. Notably her INR is elevated which may be due to underlying sepsis. I met with the patient and am recommending a right video-assisted thorascopic decortication with possible thoracotomy. I explained the procedure to her along with the potential risks, benefits, therapeutic options, complications and imponderables including but not limited to , bleeding, need for further procedures and postprocedural pain. Patient stated she understood the planned procedure and wished to proceed with surgery as recommended. Vital Signs, Last 4 Hours Pulse Resp BP Pulse Ox 11/10/17 08:00 90 11/10/17 07:28 90 16 143/62 90 Oxgyen Flow Rate Oxygen Flow Rate (LPM) 2 Weight 11/08/17 11/09/17 11/10/17 23:59 23:59 23:59 Weight 88.3 kg 88 kg 89.9 kg - Physical Examination Incision: Other (Dressings taken down, wounds clean dry and intact ) - Labs 11/10/17 04:59 11/10/17 07:09 Lab Results, Last 24 hours 11/10/17 11/10/17 04:59 07:09 WBC 14.3 H Hgb 9.8 L Hct 29.5 L Plt Count 418 H Sodium 137 Potassium 4.1 Chloride 103 Carbon Dioxide 29 BUN 14 Creatinine 0.58 L Glucose 129 H Calcium 8.0 L - VTE Documentation of Mechanical Device: Intermittent pneumatic compression device Consult Discharge Plan - Plan Referrals: Manuelito Henry MD [Partnered Physician] - 12/06/17 2:20 pm Melo Vega DO [Primary Care Provider] - 11/15/17 2:15 pm
[2017-11-10] MEDS: Famotidine 20 MG TABLET PO PRN (11:05)
[2017-11-10] MEDS: cefTRIAXone 2,000 MG in Water for inj. (sterile) 20 ML 20 ML IVP SCH (11:05)
--- NOTE | 2017-11-10 17:29 | Internal Med Progress Note ---
Date of Encounter: 11/10/17 Time of Encounter: 15:00 - Assessment and plan (1) Acute respiratory failure with hypoxia Current Visit: Yes Status: Acute Assessment and plan: Acute respiratory failure with hypoxia, s/p extubation She appears to be doing well on low levels of oxygen. Continue supportive care at this time. (2) Sepsis Current Visit: Yes Status: Acute Assessment and plan: Currently Rocephin day 12. No further sepsis noted. WBC now decreasing. Will complete 3-4 weeks of abx total. Qualifiers: Sepsis type: Pneumococcus Qualified Code(s): A40.3 - Sepsis due to Streptococcus pneumoniae (3) Bacteremia due to Streptococcus pneumoniae Current Visit: Yes Status: Resolved Assessment and plan: Awaiting blood cx from yesterday (had fever) Continue IV Rocephin for now. (4) Empyema of right pleural space Current Visit: Yes Status: Acute Assessment and plan: S/p VATS on 11/03/17 with decortication and surgical washout CT Chest on admission demonstrated loculated large right pleural effusion. Repeat CT demonstrates near complete resolution. Pleural fluid culture from 10/31/17 grew strep pneumo Continue Rocephin (Day 11) Continue Duonebs Continue Toradol prn pain Encourage early ambulation Encourage Spirometry use q1 hour Right sided chest tube was removed 11/07/[address] Henry Patient is clinically improving. Her SpO2 is 92% on 2L via NC. Completed PT, missed OT Continue to monitor with AM labs. She continues to improve. Repeat CT no fluid collection. (5) Pelvic mass Current Visit: Yes Status: Acute Assessment and plan: Findings discussed with patient and daughter - not sure if this is cancer. Will need follow up with family practice doctor oncology soon after discharge. (6) Essential hypertension Current Visit: Yes Status: Chronic Assessment and plan: BP appears controlled Continue home medication Lisinopril 2.5mg PO daily Continue Metoprolol 25 mg BID (7) A-fib Current Visit: Yes Status: Acute Assessment and plan: CHADSVASC score: 5 (age, female, HTN, DM, diastolic CHF) The patient is now in sinus rhythm Anticoagulation was held due to VATS procedure, now on Heparin Cardiology recommends resuming Eliquis upon discharge Currently no issue. Will resume Eliquis tomorrow. Qualifiers: Atrial fibrillation type: paroxysmal Qualified Code(s): I48.0 - Paroxysmal atrial fibrillation (8) DVT prophylaxis Current Visit: Yes Status: Acute - Time Spent With Patient Total time spent is greater than 50% in coordination of care (as documented) at patient's floor/unit and/or counseling patient: - Subjective Interval history: Ms Willis is currently admitted for pneumonia with empyema. She remains moderate to high risk due to potential for worsening clinical status. Ms Willis has been up walking some. She has had some nausea today with medications. No abd pain. No CP. Dyspnea slowly inproving. - Constitutional Vitals: Temp Pulse Resp BP Pulse Ox 98.1 F 84 17 135/59 96 11/10/17 11:10 11/10/17 16:19 11/10/17 16:19 11/10/17 16:19 11/10/17 16:19 General appearance: Present: cooperative, A&O X 3, pleasant, answers questions appropriately - Head Head exam: Present: normocephalic - Eye Eye exam: Present: conjuntiva pink - ENT ENT exam: Present: mucous membranes dry Additional comments: Lip lesions improving. - Respiratory Respiratory exam: Present: decreased breath sounds. Absent: rales, rhonchi, wheezes - Cardiovascular Cardiovascular exam: Present: RRR. Absent: tachycardia - GI/Abdominal GI/Abdominal exam: Present: normal bowel sounds, soft. Absent: tenderness - Extremities Exam Extremities exam: Present: warm. Absent: tenderness - Neurological Exam Neurological exam: Present: alert, oriented X3 - Skin Skin exam: Present: dry, warm Internal Medicine: Result - Labs CBC & Chem 7: 11/10/17 04:59 11/10/17 07:09 Labs: Short CBC 11/10/17 Range/Units 04:59 WBC 14.3 H (4.3-11.1) K/mcL Hgb 9.8 L (11.5-15.4) g/dL Hct 29.5 L (35.3-44.9) % Plt Count 418 H (140-400) K/mcL Neutrophils # 11.9 H (1.6-8.9) K/mcL BMP 11/10/17 07:09 Sodium 137 Potassium 4.1 Chloride 103 Carbon Dioxide 29 BUN 14 Creatinine 0.58 L Glucose 129 H Calcium 8.0 L Urine 11/10/17 Range/Units 03:00 Urine Color Yellow (Yellow) Urine Clarity Clear (Clear) Urine pH 6.5 (5.0-8.0) pH Units Ur Specific [place] 1.022 (1.010-1.025) Urine Protein Trace (Neg-Trace) mg/dL Urine Glucose (UA) Normal (Normal) mg/dL - ABG Interpretation ABG results: ABG ABG pH 7.36 pH Units (7.32-7.45) 11/04/17 06:06 ABG pCO2 58 mmHg (35-45) H 11/04/17 06:06 ABG pO2 95 mmHg (85-104) 11/04/17 06:06 ABG O2 Saturation 97 % (95-98) 11/04/17 06:06 PT/INR, D-dimer PT 14.9 Seconds (9.4-12.1) H 11/08/17 03:24 - VTE Documentation of Mechanical Device: Intermittent pneumatic compression device Consult Discharge Plan - Plan Referrals: Manuelito Henry MD [Partnered Physician] - 12/06/17 2:20 pm Melo Vega DO [Primary Care Provider] - 11/15/17 2:15 pm
[2017-11-11] MEDS: Ipratropium/Albuterol Neb 3 ML IH SCH ×4 (03:45→15:29)
[2017-11-11 04:25] LABS: Hematocrit 26.8 % (35.3-44.9); Hemoglobin 8.7 g/dL (11.5-15.4); Mean Corpuscular HGB Conc 32.5 g/dL (31.6-35.5); Mean Corpuscular Hemoglobin 29.2 pg (28.0-33.3); Mean Corpuscular Volume 89.9 fL (83.0-100.0); Mean Platelet Volume 10.4 fL (9.4-12.4); Platelet Count 444 K/mcL (140-400); Red Blood Count 2.98 M/mcL (3.82-4.97)
[2017-11-11 04:44] LABS: Alanine Aminotransferase 20 Units/L (7-52); Albumin 2.1 g/dL (3.5-5.7); Albumin/Globulin Ratio 0.7 (1.1-2.2); Alkaline Phosphatase 143 Units/L (34-104); Aspartate Amino Transferase 24 Units/L (13-39); BUN/Creatinine Ratio 22 (6-26); Bilirubin,Total 0.6 mg/dL (0.3-1.0); Blood Urea Nitrogen 12 mg/dL (8-23); Calcium 7.9 mg/dL (8.6-10.3); Carbon Dioxide 28 mEq/L (23-29); Chloride 103 mEq/L (98-107); Globulin 3.1 g/dL (2.4-3.5); Glucose 120 mg/dL (70-105); Osmolality,Calculated 287 (280-300); Potassium 3.9 mEq/L (3.5-5.1); Sodium 138 mEq/L (136-145); Total Protein 5.2 g/dL (6.4-8.9); eGFR For African Americans > 60 (> 60); eGFR For Non-African Americans > 60 (> 60)
[2017-11-11] MEDS: *HR* Heparin 5,000 UNIT/ML VIAL SQ SCH ×2 (05:45→15:24)
[2017-11-11] MEDS: Insulin LISPRO 300 UNITS/3 ML VIAL SQ SCH ×4 (08:09→23:21)
[2017-11-11] MEDS: Aspirin 81 MG TAB.CHEW PO SCH (08:14)
[2017-11-11] MEDS: Cholecalciferol (D-3) 1,000 UNIT TABLET PO SCH (08:14)
[2017-11-11] MEDS: Famotidine 20 MG TABLET PO PRN (08:14)
[2017-11-11] MEDS: Diltiazem CD (24hr) 120 MG CAPSULE PO SCH (08:14)
--- NOTE | 2017-11-11 09:57 | Cardiothoracic Progress Note ---
Date of Encounter: 11/11/17 Time of Encounter: 09:56 - Subjective Procedure(s) Performed: Patient seen and examined. Doing well by report. Sitting up in wheelchair currently on oxygen at 2 L. Discussed removing oxygen during the day and using nighttime as needed. Okay for discharge to [facility] today from my perspective. Interval history: Patient seen and examined. In summary, Mrs. Willis is a 72-year-old diabetic female who became ill by her report approximately 1-2 weeks ago. She was admitted to the hospital and found to have a loculated right pleural effusion and underwent placement of a IR guided right pleural drain with some improvement of her pleural effusion as evidenced by a repeat CAT scan performed today. She notably has a persistent leukocytosis and still has a large loculated right pleural effusion with atelectasis versus infiltrate her right lower lobe. On prednisone empirically and is also on antibiotics. Notably her INR is elevated which may be due to underlying sepsis. I met with the patient and am recommending a right video-assisted thorascopic decortication with possible thoracotomy. I explained the procedure to her along with the potential risks, benefits, therapeutic options, complications and imponderables including but not limited to , bleeding, need for further procedures and postprocedural pain. Patient stated she understood the planned procedure and wished to proceed with surgery as recommended. Vital Signs, Last 4 Hours Temp Pulse Resp BP Pulse Ox 11/11/17 07:49 16 96 11/11/17 06:54 98.1 F 72 17 153/77 95 Oxgyen Flow Rate Oxygen Flow Rate (LPM) 2 Weight 11/09/17 11/10/17 11/11/17 23:59 23:59 23:59 Weight 88 kg 89.9 kg 85.9 kg - Physical Examination General: Other (Sitting up in wheelchair, no acute distress, alert and oriented) - Labs 11/11/17 04:04 11/11/17 04:04 Lab Results, Last 24 hours 11/11/17 11/11/17 04:04 04:04 WBC 11.4 H Hgb 8.7 L Hct 26.8 L Plt Count 444 H Sodium 138 Potassium 3.9 Chloride 103 Carbon Dioxide 28 BUN 12 Creatinine 0.55 L Glucose 120 H Calcium 7.9 L Magnesium 2.0 Total Bilirubin 0.6 AST 24 ALT 20 Alkaline Phosphatase 143 H - VTE Documentation of Mechanical Device: Intermittent pneumatic compression device Consult Discharge Plan - Plan Referrals: Manuelito Henry MD [Partnered Physician] - 12/06/17 2:20 pm Melo Vega DO [Primary Care Provider] - 11/15/17 2:15 pm
[2017-11-11] MEDS: cefTRIAXone 2,000 MG in Water for inj. (sterile) 20 ML 20 ML IVP SCH (10:54)
[2017-11-11] MEDS ORDERED: Isovue-370 500 ML INFUS..BTL IV ONE (11:44)
--- NOTE | 2017-11-11 11:45 | Internal Med Progress Note ---
Date of Encounter: 11/11/17 Time of Encounter: 11:45 - Assessment and plan (1) Anemia Current Visit: Yes Status: Suspected Assessment and plan: No overt bleeding at this time. Check stool guiac. NPO tonight in case needs any procedure. Qualifiers: Anemia type: iron deficiency Iron deficiency anemia type: chronic blood loss Qualified Code(s): D50.0 - Iron deficiency anemia secondary to blood loss (chronic) (2) Acute respiratory failure with hypoxia Current Visit: Yes Status: Acute Assessment and plan: Remains stable with current management. No new issues. (3) Sepsis Current Visit: Yes Status: Acute Assessment and plan: Currently Rocephin day 13. No further sepsis noted. WBC now decreasing. Will complete 3-4 weeks of abx total. WBC lower today. Qualifiers: Sepsis type: Pneumococcus Qualified Code(s): A40.3 - Sepsis due to Streptococcus pneumoniae (4) Bacteremia due to Streptococcus pneumoniae Current Visit: Yes Status: Resolved Assessment and plan: Repeat blood cx negative at this time. Continue IV Rocephin for now. (5) Empyema of right pleural space Current Visit: Yes Status: Acute Assessment and plan: S/p VATS on 11/03/17 with decortication and surgical washout CT Chest on admission demonstrated loculated large right pleural effusion. Repeat CT demonstrates near complete resolution. Pleural fluid culture from 10/31/17 grew strep pneumo Continue Rocephin (Day 11) Continue Duonebs Continue Toradol prn pain Encourage early ambulation Encourage Spirometry use q1 hour Right sided chest tube was removed 11/07/[address] Henry Patient is clinically improving. Her SpO2 is 92% on 2L via NC. Completed PT, missed OT Continue to monitor with AM labs. She continues to improve. Repeat CT no fluid collection. Continue abx treatment. (6) Pelvic mass Current Visit: Yes Status: Acute Assessment and plan: Having abd discomfort. Repeat CT today shows mass about the same - ? bleeding in it. (7) Essential hypertension Current Visit: Yes Status: Chronic Assessment and plan: BP appears controlled Continue home medication Lisinopril 2.5mg PO daily Continue Metoprolol 25 mg BID (8) A-fib Current Visit: Yes Status: Acute Assessment and plan: CHADSVASC score: 5 (age, female, HTN, DM, diastolic CHF) The patient is now in sinus rhythm Anticoagulation was held due to VATS procedure, now on Heparin Cardiology recommends resuming Eliquis upon discharge Currently no issue. Will hold Eliquis at this time due to anemia. Qualifiers: Atrial fibrillation type: paroxysmal Qualified Code(s): I48.0 - Paroxysmal atrial fibrillation (9) DVT prophylaxis Current Visit: Yes Status: Acute - Time Spent With Patient Total time spent is greater than 50% in coordination of care (as documented) at patient's floor/unit and/or counseling patient: - Subjective Interval history: Ms Willis is currently admitted for pneumonia with empyema. She remains moderate to high risk due to potential for worsening clinical status. Ms Willis is feeling tired. No CP or worsening dyspnea. No cough. Still with some abdominal pain. Bowels OK. - Constitutional Vitals: Temp Pulse Resp BP Pulse Ox 98.1 F 72 16 153/77 92 11/11/17 06:54 11/11/17 06:54 11/11/17 07:49 11/11/17 06:54 11/11/17 10:33 General appearance: Present: cooperative, A&O X 3, pleasant, answers questions appropriately - Head Head exam: Present: normocephalic - Eye Eye exam: Present: conjuntiva pink - ENT ENT exam: Present: mucous membranes dry - Respiratory Respiratory exam: Present: decreased breath sounds, CTAB. Absent: rales, rhonchi, wheezes - Cardiovascular Cardiovascular exam: Present: RRR. Absent: tachycardia - GI/Abdominal GI/Abdominal exam: Present: distended, mass, soft, tenderness Additional comments: Fullness in lower abdomen. some tenderness in LUQ area and lower abdomen. - Extremities Exam Extremities exam: Present: warm. Absent: tenderness - Neurological Exam Neurological exam: Present: alert, oriented X3 - Skin Skin exam: Present: dry, warm Internal Medicine: Result - Labs CBC & Chem 7: 11/11/17 04:04 11/11/17 04:04 Labs: Short CBC 11/11/17 Range/Units 04:04 WBC 11.4 H (4.3-11.1) K/mcL Hgb 8.7 L (11.5-15.4) g/dL Hct 26.8 L (35.3-44.9) % Plt Count 444 H (140-400) K/mcL BMP 11/11/17 04:04 Sodium 138 Potassium 3.9 Chloride 103 Carbon Dioxide 28 BUN 12 Creatinine 0.55 L Glucose 120 H Calcium 7.9 L Liver Function 11/11/17 Range/Units 04:04 Total Bilirubin 0.6 (0.3-1.0) mg/dL AST 24 (13-39) Units/L ALT 20 (7-52) Units/L Alkaline Phosphatase 143 H (34-104) Units/L Albumin 2.1 L (3.5-5.7) g/dL - ABG Interpretation ABG results: ABG ABG pH 7.36 pH Units (7.32-7.45) 11/04/17 06:06 ABG pCO2 58 mmHg (35-45) H 11/04/17 06:06 ABG pO2 95 mmHg (85-104) 11/04/17 06:06 ABG O2 Saturation 97 % (95-98) 11/04/17 06:06 PT/INR, D-dimer PT 14.9 Seconds (9.4-12.1) H 11/08/17 03:24 - VTE Documentation of Mechanical Device: Intermittent pneumatic compression device Consult Discharge Plan - Plan Referrals: Manuelito Henry MD [Partnered Physician] - 12/06/17 2:20 pm Melo Vega DO [Primary Care Provider] - 11/15/17 2:15 pm
[2017-11-11] MEDS: Ondansetron 4 MG/2 ML VIAL IVP PRN (16:38)
[2017-11-11] MEDS: Pantoprazole 40 MG VIAL IVP SCH (18:27)
[2017-11-11] MEDS ORDERED: Ipratropium/Albuterol Neb 3 ML IH PRN (18:46)
[2017-11-11 20:59] LABS: Hematocrit 28.6 % (35.3-44.9); Hemoglobin 9.6 g/dL (11.5-15.4)
[2017-11-12 04:03] LABS: Basophils # 0.1 K/mcL (0.0-0.2); Basophils % 0.6 %; Eosinophils # 0.1 K/mcL (0.0-0.6); Eosinophils % 1.3 %; Hematocrit 29.5 % (35.3-44.9); Hemoglobin 9.6 g/dL (11.5-15.4); Immature Granulocytes % 0.5 % (0-4); Lymphocytes # 1.5 K/mcL (0.6-4.6); Lymphocytes % 13.8 %; Mean Corpuscular HGB Conc 32.5 g/dL (31.6-35.5); Mean Corpuscular Hemoglobin 29.4 pg (28.0-33.3); Mean Corpuscular Volume 90.2 fL (83.0-100.0); Mean Platelet Volume 10.3 fL (9.4-12.4); Neutrophils # 8.3 K/mcL (1.6-8.9); Platelet Count 503 K/mcL (140-400); Red Blood Count 3.27 M/mcL (3.82-4.97); Red Cell Distribution Width 13.9 % (11.5-14.5); Segmented Neutrophils % 74.8 %
[2017-11-12 04:29] LABS: BUN/Creatinine Ratio 21 (6-26); Blood Urea Nitrogen 11 mg/dL (8-23); Carbon Dioxide 28 mEq/L (23-29); Chloride 106 mEq/L (98-107); Glucose 136 mg/dL (70-105); Osmolality,Calculated 285 (280-300); Potassium 3.9 mEq/L (3.5-5.1); Sodium 137 mEq/L (136-145); eGFR For African Americans > 60 (> 60); eGFR For Non-African Americans > 60 (> 60)
[2017-11-12] MEDS: Pantoprazole 40 MG VIAL IVP SCH ×2 (06:24→18:18)
[2017-11-12] MEDS: *HR* Heparin 5,000 UNIT/ML VIAL SQ SCH ×2 (06:24→18:17)
--- NOTE | 2017-11-12 10:42 | Infectious Disease Progress No ---
Date of Encounter: 11/12/17 Time of Encounter: 10:40 - Assessment and Plan (1) Sepsis Current Visit: Yes Status: Resolved Severe sepsis: The patient had two SIRS criteria plus lactic acidosis. Likely secondary to empyema and bacteremia. Resolved. Afebrile. Tachycardia and leukocytosis have resolved. Blood cultures drawn 10/30/17 were positive 2/2 sets for S. pneumoniae. Repeat blood cultures drawn 10/30/17 after initiation of antibiotics are negative 2/2 sets. Qualifiers: Sepsis type: Pneumococcus Qualified Code(s): A40.3 - Sepsis due to Streptococcus pneumoniae (2) Bacteremia due to Streptococcus pneumoniae Current Visit: Yes Status: Resolved Causative organism: Strep pneumoniae. Source: PNA and empyema. Blood cultures drawn 10/30/17 x 2 sets at [facility] are positive 2/2 sets. Repeat blood cultures drawn 10/30/17 after antibiotics were initiated were negative 2/2 sets. No endocarditis stigmata noted on exam. Low index of suspicion for IE. TTE negative for vegetations. Continue Rocephin 2 grams IV daily. Has documented Keflex allergy, but patient denies known allergies and seems to be tolerating Rocephin without a problem. Duration of treatment depends on the clinical picture, but she will likely require a prolonged course of IV antibiotics for empyema. (3) Empyema of right pleural space Current Visit: Yes Status: Acute Causative organism: S. pneumoniae. Likely secondary to pneumonia. CXR showed large right pleural effusion with right sided airspace disease concerning for atelectasis vs. PNA. CT of the chest showed large loculated pleural effusion and dense consolidation of the right lower lobe, concerning for PNA vs. malignancy. IR consulted. Status post chest tube placement 10/31/17 with ~20ml serous fluid drained. Pulmonology team consulted. Attempted TPA administration via CT to break up loculations, but repeat CT of the chest 11/02/17 showed persistent loculated pleural effusion moderate to large. Exudative. Cultures positive for S. pneumoniae. CTS was consulted. Status post VATS procedure 11/03/[address] Walden. Operative note reviewed. Loculations and murky pleural fluid noted intra-op. Cultures negative. Pathology negative for malignancy. Chest tube removed 11/07/[address] Repeat [address] chest Sunday showed improvement in the empyema and pneumonia. Continue Rocephin 2 grams IV daily. Duration of treatment depends on the clinical picture, but likely 4 weeks. At that point, we will repeat imaging and evaluate if switching to PO antibiotics is appropriate. Consult VAT for midline placement. Will need weekly CBC and BUN/Cr. Will need weekly midline care. Follow up with ID 11/26/17 at 0920. (4) Acute respiratory failure with hypoxia Current Visit: Yes Status: Acute Likely secondary to PNA and empyema. Improved. Management per the primary team. (5) Atrial fibrillation with rapid ventricular response Current Visit: Yes Status: Resolved Likely secondary to sepsis. Resolved. Management per the primary team. (6) Pelvic mass Current Visit: Yes Status: Acute Etiology not entirely clear, but concerning for malignancy. Pelvic ultrasound done this morning is pending. Recommend [facility] Hem/Onc referral as an outpatient. (7) Diabetes Current Visit: Yes Status: Chronic Recommend aggresive glucose monitoring and control. Management per the primary team. 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 HSV PCR negative. Continue supportive care. - Subjective Interval history: Patient seen and examined. Weekend notes reviewed. Status post fall in xray this morning. No acute events noted overnight. Patient complains of back pain and left shoulder pain since fall. Denies fevers, chills, or rigors. Denies chest pain. States she had some shortness of breath after her fall and continues to have a cough productive of thick white sputum. Denies nausea, vomiting, or diarrhea. Reports soft stools with each void. Denies abdominal pain or urinary complaints. IS currently NPO, but feels hungry. States lip lesions are better. Denies oral thrush or skin lesions. Infect Dis PN-Objective Data - Labs CBC & Chem 7: 11/12/17 03:18 11/12/17 03:18 Labs: Laboratory Results - last 24 hr 11/11/17 11/11/17 11/11/17 06:57 11:25 14:42 WBC RBC Hgb Hct MCV MCH MCHC RDW Plt Count MPV Immature Gran % Seg Neutrophils % Lymphocytes % Monocytes % Eosinophils % Basophils % Neutrophils # Lymphocytes # Monocytes # Eosinophils # Basophils # Sodium Potassium Chloride Carbon Dioxide BUN Creatinine Est GFR ( Amer) Est GFR (Non-Af Amer) BUN/Creatinine Ratio Glucose POC Glucose 122 H 123 H Calculated Osmolality Calcium CA 125 Ag Serial Mntr Stool Occult Blood Negative Blood Type Antibody Screen 11/11/17 11/11/17 11/11/17 15:50 16:29 20:53 WBC RBC Hgb 9.6 L Hct 28.6 L MCV MCH MCHC RDW Plt Count MPV Immature Gran % Seg Neutrophils % Lymphocytes % Monocytes % Eosinophils % Basophils % Neutrophils # Lymphocytes # Monocytes # Eosinophils # Basophils # Sodium Potassium Chloride Carbon Dioxide BUN Creatinine Est GFR ( Amer) Est GFR (Non-Af Amer) BUN/Creatinine Ratio Glucose POC Glucose 109 H 120 H Calculated Osmolality Calcium CA 125 Ag Serial Mntr Stool Occult Blood Blood Type Antibody Screen 11/12/17 11/12/17 11/12/17 03:18 03:18 03:18 WBC 11.1 RBC 3.27 L Hgb 9.6 L Hct 29.5 L MCV 90.2 MCH 29.4 MCHC 32.5 RDW 13.9 Plt Count 503 H MPV 10.3 Immature Gran % 0.5 Seg Neutrophils % 74.8 Lymphocytes % 13.8 Monocytes % 9.0 Eosinophils % 1.3 Basophils % 0.6 Neutrophils # 8.3 Lymphocytes # 1.5 Monocytes # 1.0 Eosinophils # 0.1 Basophils # 0.1 Sodium 137 Potassium 3.9 Chloride 106 Carbon Dioxide 28 BUN 11 Creatinine 0.52 L Est GFR ( Amer) > 60 Est GFR (Non-Af Amer) > 60 BUN/Creatinine Ratio 21 Glucose 136 H POC Glucose Calculated Osmolality 285 Calcium 8.0 L CA 125 Ag Serial Mntr Stool Occult Blood Blood Type O POSITIVE Antibody Screen NEGATIVE 11/12/17 11/12/17 03:18 07:55 WBC RBC Hgb Hct MCV MCH MCHC RDW Plt Count MPV Immature Gran % Seg Neutrophils % Lymphocytes % Monocytes % Eosinophils % Basophils % Neutrophils # Lymphocytes # Monocytes # Eosinophils # Basophils # Sodium Potassium Chloride Carbon Dioxide BUN Creatinine Est GFR ( Amer) Est GFR (Non-Af Amer) BUN/Creatinine Ratio Glucose POC Glucose 118 H Calculated Osmolality Calcium CA 125 Ag Serial Mntr 584 H Stool Occult Blood Blood Type Antibody Screen Cultures: Cultures 11/09/17 08:37 Blood Culture - Preliminary Peripheral Venipuncture No growth. 11/09/17 08:35 Blood Culture - Preliminary Peripheral Venipuncture No growth. 11/03/17 09:45 Anaerobic Culture - Final Pleural Fluid No anaerobes were recovered. 11/03/17 09:45 Anaerobic Culture - Final Pleural Fluid No anaerobes were recovered. 10/31/17 13:09 Body Fluid Culture - Final Pleural Fluid Streptococcus pneumoniae 11/03/17 09:45 Gram Stain - Final Pleural Fluid Body Fluid Culture - Final 11/03/17 09:45 Body Fluid Culture - Final Pleural Fluid 10/30/17 16:15 Blood Culture - Final Peripheral Venipuncture No growth. 10/30/17 16:15 Blood Culture - Final Peripheral Venipuncture No growth. Serology 11/11/17 11/10/17 11/09/17 Range/Units 14:42 03:00 17:00 Urine Color Yellow (Yellow) Urine Clarity Clear (Clear) Urine pH 6.5 (5.0-8.0) pH Units Ur Specific [place] 1.022 (1.010-1.025) Urine Protein Trace (Neg-Trace) mg/dL Urine Glucose (UA) Normal (Normal) mg/dL Urine Ketones Negative (Negative) mg/dL Urine Blood Negative (Negative) Urine Nitrite Negative (Negative) Urine Bilirubin Negative (Negative) Urine Urobilinogen Normal (Normal) mg/dL Ur Leukocyte Esterase Negative (Negative) Urine Microscopic RBC 15-30 H (0-3) per hpf Urine Microscopic WBC 3-5 H (0-3) per hpf Ur Squamous Epith Cells Many H (None-Few) per lpf Urine Bacteria None Seen (None-Few) per hpf Hyaline Casts None Seen (None-Few) per lpf Ur Culture Indicated? NO (NO) Pleural Fluid Volume mL Pleural Appearance (Clear) Pleural pH (No Ref Range) pH Units Pleural RBC (0.000 - 0.002) M/mcL Pleural Tot Nuc Cell (0-1000) TNC/mcL Pleural Neutrophils % Pleural Band Neuts Pleural Eosinophils Pleural Basophils Pleural Lymphocytes % % Pleural Monocytes % % Pleural Other Cells % % Pleural Total Protein (No Ref Range) g/dL Pleural LDH (No Ref Range) Units/L Pleural Glucose (No Ref Range) mg/dL Pleural Cholesterol (No Ref Range) mg/dL Pleural Triglycerides (No Ref Range) mg/dL Stool Occult Blood Negative (Negative) Chlamy pneumoniae PCR Not Detected (Not Detect) Adenovirus (PCR) Not Detected (Not Detect) B. 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 Human Metapneumovir PCR Not Detected (Not Detect) Influenza A (H1) PCR Not Detected (Not Detect) Influ A (H1N1/09) PCR Not Detected (Not Detect) Influenza A (H3) PCR Not Detected (Not Detect) Influenza A Untype (PCR) Not Detected (Not Detect) Influenza Type B (PCR) Not Detected (Not Detect) M.pneumoniae DNA (PCR) Not Detected (Not Detect) Parainfluenza 1 (PCR) Not Detected (Not Detect) Parainfluenza 2 (PCR) Not Detected (Not Detect) Parainfluenza 3 (PCR) Not Detected (Not Detect) Parainfluenza 4 (PCR) Not Detected (Not Detect) RSV (PCR) Not Detected (Not Detect) Entero/Rhino (PCR) Not Detected (Not Detect) 11/09/17 11/08/17 10/31/17 Range/Units 11:40 16:30 13:09 Urine Color (Yellow) Urine Clarity (Clear) Urine pH (5.0-8.0) pH Units Ur Specific [place] (1.010-1.025) Urine Protein (Neg-Trace) mg/dL Urine Glucose (UA) (Normal) mg/dL Urine Ketones (Negative) mg/dL Urine Blood (Negative) Urine Nitrite (Negative) Urine Bilirubin (Negative) Urine Urobilinogen (Normal) mg/dL Ur Leukocyte Esterase (Negative) Urine Microscopic RBC (0-3) per hpf Urine Microscopic WBC (0-3) per hpf Ur Squamous Epith Cells (None-Few) per lpf Urine Bacteria (None-Few) per hpf Hyaline Casts (None-Few) per lpf Ur Culture Indicated? (NO) Pleural Fluid Volume mL Pleural Appearance (Clear) Pleural pH (No Ref Range) pH Units Pleural RBC (0.000 - 0.002) M/mcL Pleural Tot Nuc Cell (0-1000) TNC/mcL Pleural Neutrophils % Pleural Band Neuts Pleural Eosinophils Pleural Basophils Pleural Lymphocytes % % Pleural Monocytes % % Pleural Other Cells % % Pleural Total Protein 4.2 (No Ref Range) g/dL Pleural LDH 793 (No Ref Range) Units/L Pleural Glucose < 10 (No Ref Range) mg/dL Pleural Cholesterol 65 (No Ref Range) mg/dL Pleural Triglycerides 101 (No Ref Range) mg/dL Stool Occult Blood (Negative) Chlamy pneumoniae PCR (Not Detect) Adenovirus (PCR) (Not Detect) B. pertussis DNA (PCR) (Not Detect) B.parapertussis DNA PCR (Not Detect) Coronavirus OC43 (PCR) (Not Detect) Coronavirus HKU1 (PCR) (Not Detect) Coronavirus 229E (PCR) (Not Detect) Coronavirus NL63 (PCR) (Not Detect) Herpes Simplex Source LIP LESIONS Lip lesions HSV I Not Detected TNP HSV II Not Detected TNP Human Metapneumovir PCR (Not Detect) Influenza A (H1) PCR (Not Detect) Influ A (H1N1/09) PCR (Not Detect) Influenza A (H3) PCR (Not Detect) Influenza A Untype (PCR) (Not Detect) Influenza Type B (PCR) (Not Detect) M.pneumoniae DNA (PCR) (Not Detect) Parainfluenza 1 (PCR) (Not Detect) Parainfluenza 2 (PCR) (Not Detect) Parainfluenza 3 (PCR) (Not Detect) Parainfluenza 4 (PCR) (Not Detect) RSV (PCR) (Not Detect) Entero/Rhino (PCR) (Not Detect) 10/31/17 Range/Units 13:09 Urine Color (Yellow) Urine Clarity (Clear) Urine pH (5.0-8.0) pH Units Ur Specific [place] (1.010-1.025) Urine Protein (Neg-Trace) mg/dL Urine Glucose (UA) (Normal) mg/dL Urine Ketones (Negative) mg/dL Urine Blood (Negative) Urine Nitrite (Negative) Urine Bilirubin (Negative) Urine Urobilinogen (Normal) mg/dL Ur Leukocyte Esterase (Negative) Urine Microscopic RBC (0-3) per hpf Urine Microscopic WBC (0-3) per hpf Ur Squamous Epith Cells (None-Few) per lpf Urine Bacteria (None-Few) per hpf Hyaline Casts (None-Few) per lpf Ur Culture Indicated? (NO) Pleural Fluid Volume 22.0 mL Pleural Appearance Cloudy A (Clear) Pleural pH 6.40 (No Ref Range) pH Units Pleural RBC 0.005 H (0.000 - 0.002) M/mcL Pleural Tot Nuc Cell > 07577 H (0-1000) TNC/mcL Pleural Neutrophils 75.0 % Pleural Band Neuts Test Not Performed Pleural Eosinophils Test Not Performed Pleural Basophils Test Not Performed Pleural Lymphocytes % 23.0 % Pleural Monocytes % 1.0 % Pleural Other Cells % 1.0 % Pleural Total Protein (No Ref Range) g/dL Pleural LDH (No Ref Range) Units/L Pleural Glucose (No Ref Range) mg/dL Pleural Cholesterol (No Ref Range) mg/dL Pleural Triglycerides (No Ref Range) mg/dL Stool Occult Blood (Negative) Chlamy pneumoniae PCR (Not Detect) Adenovirus (PCR) (Not Detect) B. 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 Stable size of a large mixed cystic and solid mass in the pelvis, which may arise from the right adnexa. A small amount of adjacent simple ascites is mildly increased from prior exam. A small amount of hemorrhage within the mass may be present, but there is no evidence of hemoperitoneum. 2. Omental caking may be present anteriorly along the left mid abdomen, similar to prior exam. 3. Trace partially loculated right pleural effusion, decreased from prior exam. Mild residual airspace consolidation is present in the right lower lobe. 4. Small left pleural effusion, increased from prior exam. D/ / 11/11/2017 15:29:26 Fran Guzman MD / melanie Interpreting Provider: Fran Guzman MD Exam - Constitutional Vitals: Temp Pulse Resp BP Pulse Ox 98 F 76 15 164/79 94 11/12/17 07:57 11/12/17 07:57 11/12/17 07:57 11/12/17 07:57 11/12/17 04:00 General appearance: average body habitus, cooperative, no acute distress - Head Head exam: Present: atraumatic, normal inspection, normocephalic - Eye Eye exam: Present: EOMI, normal appearance, PERRL Pupils: Present: normal accommodation - ENT ENT exam: Present: mucous membranes moist Additional comments: Scabbed lesions to the upper and lower lips improved. - Neck Neck exam: Present: normal inspection - Respiratory Respiratory exam: Present: CTAB. Absent: rales, respiratory distress, rhonchi, wheezes Additional comments: Surgical site and chest tube sites to the right lateral chest wall with PREDATORY HUNTER. No crepitus, warmth, erythema noted. - Cardiovascular Cardiovascular exam: Present: RRR, +S1, +S2 - GI/Abdominal GI/Abdominal exam: Present: normal bowel sounds, soft. Absent: distended, tenderness - Extremities Exam Extremities exam: Present: normal inspection. Absent: joint swelling, pedal edema, tenderness - Neurological Exam Neurological exam: Present: alert, oriented X3, no focal deficits - Psychiatric Psychiatric exam: Present: normal affect, normal mood - Skin Skin exam: Present: dry, intact, normal color, warm - VTE Documentation of Mechanical Device: Intermittent pneumatic compression device Consult Discharge Plan - Plan Referrals: Manuelito Henry MD [Partnered Physician] - 12/06/17 2:20 pm Melo Vega DO [Primary Care Provider] - 11/15/17 2:15 pm Ada Gupta, NEON SIGN INSTALLER [Advanced Practice Nurse] - 11/26/17 9:20 am - Attending Attestation I examined this patient and my medical decision-making was reviewed with the Resident Physician. I agree with the documented findings, disposition and treatment plan as described except to the extent set forth below.
[2017-11-12] MEDS: Insulin LISPRO 300 UNITS/3 ML VIAL SQ SCH ×4 (10:49→21:22)
--- NOTE | 2017-11-12 10:52 | Cardiothoracic Progress Note ---
Date of Encounter: 11/12/17 Time of Encounter: 10:49 Discussion with patient/family: The patient is okay for discharge from my standpoint, once her pelvic mass is worked up. I will sign off. Please call if needed. I am unable to enter a diagnosis for this patient, because someone else's using the patient's medical record. The diagnosis is empyema. - Subjective Interval history: The patient has no complaints. She is being worked up for a pelvic mass. Vital Signs, Last 4 Hours Temp Pulse Resp BP 11/12/17 07:57 98 F 76 15 164/79 Oxgyen Flow Rate Oxygen Flow Rate (LPM) 2 Clinical Data, last 8 Hours Output, Urine Amount 0 Weight 11/10/17 11/11/17 11/12/17 23:59 23:59 23:59 Weight 89.9 kg 85.9 kg Lungs are clear to percussion and auscultation. All incisions are healing well without signs of infection. The most recent CT scan of the chest revealed almost complete clearing of the empyema. - Labs 11/12/17 03:18 11/12/17 03:18 Lab Results, Last 24 hours 11/11/17 11/12/17 11/12/17 20:53 03:18 03:18 WBC 11.1 Hgb 9.6 L 9.6 L Hct 28.6 L 29.5 L Plt Count 503 H Sodium 137 Potassium 3.9 Chloride 106 Carbon Dioxide 28 BUN 11 Creatinine 0.52 L Glucose 136 H Calcium 8.0 L - VTE Documentation of Mechanical Device: Intermittent pneumatic compression device Consult Discharge Plan - Plan Referrals: Manuelito Henry MD [Partnered Physician] - 12/06/17 2:20 pm Melo Vega DO [Primary Care Provider] - 11/15/17 2:15 pm
[2017-11-12] MEDS: Acetaminophen 325 MG TABLET PO PRN (11:49)
[2017-11-12] MEDS: cefTRIAXone 2,000 MG in Water for inj. (sterile) 20 ML 20 ML IVP SCH (12:14)
[2017-11-12] MEDS: Aspirin 81 MG TAB.CHEW PO SCH (14:47)
[2017-11-12] MEDS: Diltiazem CD (24hr) 120 MG CAPSULE PO SCH (14:54)
[2017-11-12] MEDS: Cholecalciferol (D-3) 1,000 UNIT TABLET PO SCH (14:54)
[2017-11-12] MEDS: Ondansetron 4 MG/2 ML VIAL IVP PRN (18:18)
--- NOTE | 2017-11-12 19:38 | Internal Med Progress Note ---
Date of Encounter: 11/12/17 Time of Encounter: 11:00 - Assessment and plan (1) Ovarian mass, right Current Visit: Yes Status: Acute Assessment and plan: CT and US confirm mass from ovary. Some possible omental caking noted. CA 125 elevated. I spoke to patient and family - needs to have further workup. I spoke to butting saw operator onc at [place] - Dr Talia Riley (office number [phone]) . She requests biopsy if possible and outpatient follow up. I have spoken to IR and will try for biopsy in AM and then to [place] [facility]. Patient and family aware of possible nature of mass. (2) Anemia Current Visit: Yes Status: Suspected Assessment and plan: No overt bleeding at this time. Stool guiac negative. H/H improved. Qualifiers: Anemia type: other cause Other causes of anemia: chronic disease, other Qualified Code(s): D63.8 - Anemia in other chronic diseases classified elsewhere (3) Acute respiratory failure with hypoxia Current Visit: Yes Status: Acute Assessment and plan: Remains stable with current management. No new issues. (4) Sepsis Current Visit: Yes Status: Resolved Assessment and plan: Improved. Qualifiers: Sepsis type: Pneumococcus Qualified Code(s): A40.3 - Sepsis due to Streptococcus pneumoniae (5) Empyema of right pleural space Current Visit: Yes Status: Acute Assessment and plan: S/p VATS on 11/03/17 with decortication and surgical washout CT Chest on admission demonstrated loculated large right pleural effusion. Repeat CT demonstrates near complete resolution. Pleural fluid culture from 10/31/17 grew strep pneumo Continue Rocephin (Day 11) Continue Duonebs Continue Toradol prn pain Encourage early ambulation Encourage Spirometry use q1 hour Right sided chest tube was removed 11/07/[address] Henry Patient is clinically improving. Her SpO2 is 92% on 2L via NC. Completed PT, missed OT Continue to monitor with AM labs. She continues to improve. Repeat CT no fluid collection. Continue abx treatment per ID (6) Pelvic mass Current Visit: Yes Status: Acute Assessment and plan: As above. (7) Essential hypertension Current Visit: Yes Status: Chronic Assessment and plan: BP appears controlled Continue home medication Lisinopril 2.5mg PO daily Continue Metoprolol 25 mg BID (8) A-fib Current Visit: Yes Status: Chronic Assessment and plan: CHADSVASC score: 5 (age, female, HTN, DM, diastolic CHF) The patient is now in sinus rhythm Anticoagulation was held due to VATS procedure, now on Heparin Cardiology recommends resuming Eliquis upon discharge Currently no issue. Will hold Eliquis at this time due to anemia and need for biopsy. Qualifiers: Atrial fibrillation type: paroxysmal Qualified Code(s): I48.0 - Paroxysmal atrial fibrillation (9) DVT prophylaxis Current Visit: Yes Status: Acute Assessment and plan: Heparin - Time Spent With Patient Total time spent is greater than 50% in coordination of care (as documented) at patient's floor/unit and/or counseling patient: - Subjective Interval history: Ms Willis is currently admitted for pneumonia with empyema. She remains moderate to high risk due to potential for worsening clinical status. Ms Willis is hungry. Had ultrasound this AM. No fever. Feels tired overall. H/H improved. Daughter at bedside. - Constitutional Vitals: Temp Pulse Resp BP Pulse Ox 98 F 85 16 141/67 94 11/12/17 11:15 11/12/17 15:55 11/12/17 15:55 11/12/17 15:55 11/12/17 15:55 General appearance: Present: cooperative, A&O X 3, pleasant, answers questions appropriately - Head Head exam: Present: normocephalic - Eye Eye exam: Present: conjuntiva pink - ENT ENT exam: Present: mucous membranes moist - Respiratory Respiratory exam: Present: rhonchi. Absent: rales, wheezes - Cardiovascular Cardiovascular exam: Present: RRR. Absent: tachycardia - GI/Abdominal GI/Abdominal exam: Present: soft. Absent: tenderness - Extremities Exam Extremities exam: Present: warm. Absent: tenderness - Neurological Exam Neurological exam: Present: alert, oriented X3 - Skin Skin exam: Present: dry, warm Internal Medicine: Result - Labs CBC & Chem 7: 11/12/17 03:18 11/12/17 03:18 Labs: Short CBC 11/11/17 11/12/17 Range/Units 20:53 03:18 WBC 11.1 (4.3-11.1) K/mcL Hgb 9.6 L 9.6 L (11.5-15.4) g/dL Hct 28.6 L 29.5 L (35.3-44.9) % Plt Count 503 H (140-400) K/mcL Neutrophils # 8.3 (1.6-8.9) K/mcL BMP 11/12/17 03:18 Sodium 137 Potassium 3.9 Chloride 106 Carbon Dioxide 28 BUN 11 Creatinine 0.52 L Glucose 136 H Calcium 8.0 L - ABG Interpretation ABG results: ABG ABG pH 7.36 pH Units (7.32-7.45) 11/04/17 06:06 ABG pCO2 58 mmHg (35-45) H 11/04/17 06:06 ABG pO2 95 mmHg (85-104) 11/04/17 06:06 ABG O2 Saturation 97 % (95-98) 11/04/17 06:06 PT/INR, D-dimer PT 14.9 Seconds (9.4-12.1) H 11/08/17 03:24 - Impressions Impressions Abdomen/Pelvis CT 11/11/17 14:30 IMPRESSION: 1. Stable size of a large mixed cystic and solid mass in the pelvis, which may arise from the right adnexa. A small amount of adjacent simple ascites is mildly increased from prior exam. A small amount of hemorrhage within the mass may be present, but there is no evidence of hemoperitoneum. 2. Omental caking may be present anteriorly along the left mid abdomen, similar to prior exam. 3. Trace partially loculated right pleural effusion, decreased from prior exam. Mild residual airspace consolidation is present in the right lower lobe. 4. Small left pleural effusion, increased from prior exam. D/ / 11/11/2017 15:29:26 Fran Guzman MD / [facility] Interpreting Provider: Fran Guzman MD Pelvis Ultrasound 11/12/17 09:00 IMPRESSION: Large 20.3 cm pelvic mass is again demonstrated, better visualized in its entirety on recent CT, concerning for ovarian neoplasm. Normal appearing ovaries could not be visualized. Free pelvic fluid. Endometrium is thickened for a postmenopausal female, which can indicate endometrial hyperplasia, polyp, or carcinoma. D/ / Salvador Ortiz MD / Salvador Ortiz MD Interpreting Provider: Salvador Ortiz MD Lumbar Spine X-Ray 11/12/17 09:38 IMPRESSION: 1. Stable grade 1 anterolisthesis of L5 on S1. 2. Multilevel degenerative changes. 3. Osteopenia. 4. No acute abnormality identified. D/ / 11/12/2017 10:42:42 Marvel Workman MD / [facility] Interpreting Provider: Marvel Workman MD Pelvis X-Ray 11/12/17 09:38 IMPRESSION: 1. No radiographic finding to account for patient's pelvic pain. D/ / Kostas Rivera MD / Kostas Rivera MD Interpreting Provider: Kostas Rivera MD Thoracic Spine X-Ray 11/12/17 09:38 IMPRESSION: 1. No radiographic finding to account for patient's back pain. D/ / Kostas Rivera MD / Kotsas Rivera MD Interpreting Provider: Kostas Rivera MD - VTE Documentation of Mechanical Device: Intermittent pneumatic compression device Consult Discharge Plan - Plan Referrals: Manuelito Henry MD [Partnered Physician] - 12/06/17 2:20 pm Ada Gupta CNP [Advanced Practice Nurse] - 11/26/17 9:20 am Melo Vega DO [Primary Care Provider] - 11/15/17 2:15 pm
[2017-11-13] MEDS: Acetaminophen 325 MG TABLET PO PRN (04:28)
[2017-11-13] MEDS: Pantoprazole 40 MG VIAL IVP SCH (06:43)
[2017-11-13] MEDS: *HR* Heparin 5,000 UNIT/ML VIAL SQ SCH ×2 (06:43→17:03)
[2017-11-13] MEDS: Diltiazem CD (24hr) 120 MG CAPSULE PO SCH (09:13)
[2017-11-13] MEDS: Cholecalciferol (D-3) 1,000 UNIT TABLET PO SCH (09:14)
[2017-11-13] MEDS: Insulin LISPRO 300 UNITS/3 ML VIAL SQ SCH ×4 (09:14→22:48)
--- NOTE | 2017-11-13 10:08 | Discharge Summary ---
- NOTES TO OUTPATIENT PROVIDER Notes to Outpatient Provider: She will need to have a follow up set up with [facility]/onc (Dr. Talia Riley, ). Biopsy of ovarian mass pending. She need weekly CBC/BUN/CR Orders not resulted at time of discharge: Pending orders 10/30/17 15:34 Sputum Culture [Culture,Sputum with Gram Stain] [RM] Routine 11/09/17 08:37 Culture,Blood,Additional [BC] Stat 11/14/17 04:00 BMP [Basic Metabolic Panel] AM 0400 Complete Blood Count [HEME] AM 0400 Magnesium AM 0400 Date of Encounter: 11/13/17 Time of Encounter: 10:05 - Discharge Diagnosis (1) Acute respiratory failure with hypoxia Priority: Primary Status: Acute (2) Empyema of right pleural space Priority: Primary Status: Acute (3) Pelvic mass Priority: Primary Status: Acute (4) Essential hypertension Priority: Secondary Status: Chronic (5) A-fib Priority: Secondary Status: Chronic Qualifiers: Atrial fibrillation type: paroxysmal Qualified Code(s): I48.0 - Paroxysmal atrial fibrillation (6) Sepsis Priority: Primary Status: Resolved Qualifiers: Sepsis type: Pneumococcus Qualified Code(s): A40.3 - Sepsis due to Streptococcus pneumoniae (7) Anemia Priority: Secondary Status: Suspected Qualifiers: Anemia type: other cause Other causes of anemia: chronic disease, other Qualified Code(s): D63.8 - Anemia in other chronic diseases classified elsewhere (8) Ovarian mass, right Priority: Primary Status: Acute Hospital course: Ms. Willis is a 72 year old female transferred from [facility] with worsening SOB and a RLL PNA and large right pleural effusion. She has been afebrile but has a WBC > 27K and desaturating into the 80s on RA. Her symptoms began almost one week prior and she went to Urgent care over and was given a prescription for an antibiotic but was unable to fill it because her pharmacy was closed for the weekend. Her sob was getting worse which prompted her to go to the ER. She was started on Levaquin prior to transfer. Her Lactic acid was elevated (3.1) and her initial troponin is also mildly elevated 0.11. She was on bipap intially. CT chest showed Loculated large right pleural effusion. She was started on vancomycin and Zosyn here. Pulmonary were consulted and recommended chest tube placement by IR. This was done and eventually cardiothoracic's were involved and she underwent VATS decortication procedure. She did require intubation postoperatively and was intubated for a week. Pulmonary were involved and the patient antibiotics were switched to IV ceftriaxone that she was noted to be bacteremic with strep pneumo. Pleural fluid also grew strep pneumo. Cytology with no malignancy. She is planned to have 4 weeks total of that with follow-up with ID 11/26. While hospitalized the patient was in atrial fibrillation with rapid ventricular response for which she required a Cardizem drip. She was on a heparin drip as well as at some point. Eventually all of that was stopped due to the need for procedures. Cardiology were okay with her starting Eliquis at discharge for anticoagulation. She was also started on Cardizem and metoprolol. Echocardiogram showed an EF of 60-65%. Mild left ventricular diastolic dysfunction. Due to complaints of abdominal pain a CT abdomen and pelvis was done which showed a large partially cystic and partially solid mass from the pelvis that extends into the abdomen. 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 There is also some suspicious for omental involvement. This was later confirmed on another CT abdomen and pelvis which showed omental caking. A pelvic ultrasound showed a large 20.3 cm pelvic mass concerning for very neoplasm. CA-125 was elevated. The patient underwent a biopsy of that in IR 08/15. My colleague, Dr. Galen Mark, made arrangements for a [facility]/onc referral at [facility] with Dr. Talia Riley (office number [phone]). The patient was eventually discharged on 11/14 to swing bed. - Time Spent with Patient Total time spent providing and/or coordinating discharge services: - Discharge Medications Prescriptions: Methocarbamol [Robaxin] 500 mg PO Q6HR PRN #30 tablet PRN Reason: Muscle Spasm Apixaban [Eliquis] 5 mg PO BID #60 tablet Ceftriaxone Sodium [Ceftriaxone] 2 gm IV DAILY 13 Days #13 vial.port Diltiazem CD (24hr) [Cardizem CD] 120 mg PO DAILY #30 cap.er.24h Docusate [Colace] 100 mg PO BID #30 capsule Metoprolol [Lopressor] 25 mg PO BID #60 tablet Zolpidem [Ambien] 5 mg PO HS PRN 5 Days #5 tablet PRN Reason: Insomnia Home Medications: Benzonatate [Tessalon] 100 mg PO TID #20 capsule 10/28/17 [Rx] Albuterol Neb [Proventil Neb] 2.5 mg IH Q6H PRN 10/30/17 [History] Albuterol Sulfate [Albuterol Inhaler] 2 puff IH QID PRN 10/30/17 [History] Aspirin [Lo-Dose Aspirin EC] 81 mg PO DAILY 10/30/17 [History] Cholecalciferol (Vitamin D3) [Vitamin D3] 5,000 unit PO QWEEK 10/30/17 [History] Liraglutide [Victoza 3-Kelvin] 1.2 mg PO DAILY 10/30/17 [History] Lisinopril 2.5 mg PO DAILY 10/30/17 [History] Meclizine HCl [Verticalm] 25 mg PO DAILY PRN 10/30/17 [History] Ranitidine HCl [Acid Lighthouse Keeper] 150 mg PO BID PRN 10/30/17 [History] Sertraline [Zoloft] 50 mg PO DAILY 10/30/17 [History] Apixaban [Eliquis] 5 mg PO BID #60 tablet 11/13/17 [Rx] Ceftriaxone Sodium [Ceftriaxone] 2 gm IV DAILY 13 Days #13 vial.port 11/13/17 [ Rx] Diltiazem CD (24hr) [Cardizem CD] 120 mg PO DAILY #30 cap.er.24h 11/13/17 [Rx] Docusate [Colace] 100 mg PO BID #30 capsule 11/13/17 [Rx] Methocarbamol [Robaxin] 500 mg PO Q6HR PRN #30 tablet 11/13/17 [Rx] Metoprolol [Lopressor] 25 mg PO BID #60 tablet 11/13/17 [Rx] Zolpidem [Ambien] 5 mg PO HS PRN 5 Days #5 tablet 11/13/17 [Rx] Allergies/Adverse Reactions: 3 Allergy/AdvReac Type Severity Reaction Status Date / Time Amoxicillin [From Augmentin] Allergy Rash Verified 10/30/17 10:40 azithromycin Allergy Hives Verified 10/30/17 10:40 cephalexin Allergy See Verified 11/13/17 11:56 Comments clavulanic acid Allergy Rash Verified 10/30/17 10:40 [From Augmentin] doxycycline Allergy Rash Verified 10/30/17 10:40 omeprazole Allergy Rash Verified 10/30/17 10:40 Date of admission: 10/30/17 15:03 Primary care physician: Melo Vega DO Consults: 10/30/17 18:16 Consult to Cardiology [CONS] Routine Comment: Consulting Provider: Card[facility] [place] Reason for Consult: Elevated troponins (sepsis and troponin leak vs ACS) Time Notified: 18:17 Call Completed: No 10/31/17 09:40 Consult to Pulmonology [CONS] Routine Consulting Provider: [facility] Reason for Consult: Sepsis/ pneumonia/possible empyema Time Notified: 09:40 Call Completed: Yes 11/02/17 13:20 Consult to Cardiothoracic Surgery [CONS] Routine Consulting Provider: Cardiothoracic Surgery [place] Reason for Consult: Empyema Time Notified: 13:20 Call Completed: Yes 11/07/17 10:14 PT [Consult to Physical Therapy] [CONS] Routine Comment: Evaluate, develop and implement POC Reason for Consult: Deconditioning Does patient have active BEDREST order?: No Is patient medically & hemodynamically stable?: Yes Patient assessed for mobility or mobilized this visit?: No 11/08/17 11:30 Consult to Infectious Diseases [CONS] Routine Consulting Provider: Infectious Disease [facility] Reason for Consult: Elevated WBC s/p VAT day 4 Call Completed: No 11/12/17 09:13 Consult to Invasive Line Access Team [CONS] Routine Reason for Consult: home atb Line Type: Midline 11/12/17 13:31 Consult to Interventional Radiology [CONS] Routine Consulting Provider: Radiology Interventional [facility] Reason for Consult: Biopsy of abdominal mass/wall (? omental caking) Time Notified: 11:00 Call Completed: Yes - Constitutional Vitals: Temp Pulse Resp BP Pulse Ox 98.8 F 73 16 168/76 95 11/13/17 06:44 11/13/17 06:44 11/13/17 06:44 11/13/17 06:44 11/13/17 06:44 General appearance: Present: cooperative, A&O X 3, pleasant, answers questions appropriately Exam: GEN: NAD CVS: RRR. S1, S2, No m/r/g RESP: Diminished at the bases ABD: Soft, generalized abdominal tenderness and distention, no rebound, +BS EXT: No edema. 2+ DP. No rashes NEURO: Nonfocal - Patient Status Disposition: Transfer SNF Condition: Fair - Discharge Instructions Follow Up With: Manuelito Henry MD [Partnered Physician] - 12/06/17 2:20 pm Ada Gupta, CHEMICAL WEIGHER [Advanced Practice Nurse] - 11/26/17 9:20 am Melo Vega DO [Primary Care Provider] - 11/15/17 2:15 pm Additional Instructions: She will need to have a follow up set up with [facility]/onc (Dr. Talia Riley, ). - Diet and Activity Activity: increase activity as tolerated Diet: diabetic diet, low salt diet - VTE Documentation of Mechanical Device: Intermittent pneumatic compression device
--- NOTE | 2017-11-13 10:18 | Physician Discharge Referral ---
ExtendedCare Referral Info Institutional Level of Care: Skilled - Diagnosis (1) Acute respiratory failure with hypoxia Priority: Primary Status: Acute (2) Empyema of right pleural space Priority: Primary Status: Acute (3) Pelvic mass Priority: Primary Status: Acute (4) Essential hypertension Priority: Secondary Status: Chronic (5) A-fib Priority: Primary Status: Chronic (6) Sepsis Priority: Primary Status: Resolved (7) Anemia Status: Suspected (8) Ovarian mass, right Priority: Primary Status: Acute - Transfer Medications Prescriptions: Methocarbamol [Robaxin] 500 mg PO Q6HR PRN #30 tablet PRN Reason: Muscle Spasm Apixaban [Eliquis] 5 mg PO BID #60 tablet Ceftriaxone Sodium [Ceftriaxone] 2 gm IV DAILY 13 Days #13 vial.port Diltiazem CD (24hr) [Cardizem CD] 120 mg PO DAILY #30 cap.er.24h Docusate [Colace] 100 mg PO BID #30 capsule Metoprolol [Lopressor] 25 mg PO BID #60 tablet Zolpidem [Ambien] 5 mg PO HS PRN 5 Days #5 tablet PRN Reason: Insomnia Home Medications: Benzonatate [Tessalon] 100 mg PO TID #20 capsule 10/28/17 [Rx] Albuterol Neb [Proventil Neb] 2.5 mg IH Q6H PRN 10/30/17 [History] Albuterol Sulfate [Albuterol Inhaler] 2 puff IH QID PRN 10/30/17 [History] Aspirin [Lo-Dose Aspirin EC] 81 mg PO DAILY 10/30/17 [History] Cholecalciferol (Vitamin D3) [Vitamin D3] 5,000 unit PO QWEEK 10/30/17 [History] Liraglutide [Victoza 3-Kelvin] 1.2 mg PO DAILY 10/30/17 [History] Lisinopril 2.5 mg PO DAILY 10/30/17 [History] Meclizine HCl [Verticalm] 25 mg PO DAILY PRN 10/30/17 [History] Ranitidine HCl [Acid [place]] 150 mg PO BID PRN 10/30/17 [History] Sertraline [Zoloft] 50 mg PO DAILY 10/30/17 [History] Apixaban [Eliquis] 5 mg PO BID #60 tablet 04/17/18 [Rx] Ceftriaxone Sodium [Ceftriaxone] 2 gm IV DAILY 13 Days #13 vial.port 11/13/17 [ Rx] Diltiazem CD (24hr) [Cardizem CD] 120 mg PO DAILY #30 cap.er.24h 11/13/17 [Rx] Docusate [Colace] 100 mg PO BID #30 capsule 11/13/17 [Rx] Methocarbamol [Robaxin] 500 mg PO Q6HR PRN #30 tablet 11/13/17 [Rx] Metoprolol [Lopressor] 25 mg PO BID #60 tablet 11/13/17 [Rx] Zolpidem [Ambien] 5 mg PO HS PRN 5 Days #5 tablet 11/13/17 [Rx] Allergies/Adverse Reactions: 3 Allergy/AdvReac Type Severity Reaction Status Date / Time Amoxicillin [From Augmentin] Allergy Rash Verified 10/30/17 10:40 azithromycin Allergy Hives Verified 10/30/17 10:40 cephalexin Allergy Rash Verified 10/30/17 10:40 clavulanic acid Allergy Rash Verified 10/30/17 10:40 [From Augmentin] doxycycline Allergy Rash Verified 10/30/17 10:40 omeprazole Allergy Rash Verified 10/30/17 10:40 - Respiratory Orders Smoking Cessation: Smoking cessation has been advised. For more information, call the [place] Tobacco Quit Line at 1-533-RFZS-NOW. - Lab Orders Lab Orders: Other (include drug levels w/frequency) (Needs weekly CBC/BUN/CR while on abx) - Treatments List/Other: She will need to have a follow up set up with [facility]/onc (Dr. Talia Riley, ). - Diet Orders Cardiac CERTIFICATION: I certify that the transfer of the above named patient to an Extended Care Facility is necessary for the continuing treatment of the diagnosis listed. The above information is true and accurate reflection of patient's current condition. Confidential - Redisclosure prohibited without a patient's written consent.
--- NOTE | 2017-11-13 10:27 | Infectious Disease Progress No ---
Date of Encounter: 11/13/17 Time of Encounter: 10:25 - Assessment and Plan (1) Sepsis Current Visit: Yes Status: Resolved Severe sepsis: The patient had two SIRS criteria plus lactic acidosis. Likely secondary to empyema and bacteremia. Resolved. Afebrile. Tachycardia and leukocytosis have resolved. Blood cultures drawn 10/30/17 were positive 2/2 sets for S. pneumoniae. Repeat blood cultures drawn 10/30/17 after initiation of antibiotics are negative 2/2 sets. Qualifiers: Sepsis type: Pneumococcus Qualified Code(s): A40.3 - Sepsis due to Streptococcus pneumoniae (2) Bacteremia due to Streptococcus pneumoniae Current Visit: Yes Status: Resolved Causative organism: Strep pneumoniae. Source: PNA and empyema. Blood cultures drawn 10/30/17 x 2 sets at [facility] are positive 2/2 sets. Repeat blood cultures drawn 10/30/17 after antibiotics were initiated were negative 2/2 sets. No endocarditis stigmata noted on exam. Low index of suspicion for IE. TTE negative for vegetations. Continue Rocephin 2 grams IV daily. Has documented Keflex allergy, but patient denies known allergies and seems to be tolerating Rocephin without a problem. Duration of treatment depends on the clinical picture, but she will likely require a prolonged course of IV antibiotics for empyema. (3) Empyema of right pleural space Current Visit: Yes Status: Acute Causative organism: S. pneumoniae. Likely secondary to pneumonia. CXR showed large right pleural effusion with right sided airspace disease concerning for atelectasis vs. PNA. CT of the chest showed large loculated pleural effusion and dense consolidation of the right lower lobe, concerning for PNA vs. malignancy. IR consulted. Status post chest tube placement 10/31/17 with ~20ml serous fluid drained. Pulmonology team consulted. Attempted TPA administration via CT to break up loculations, but repeat CT of the chest 11/02/17 showed persistent loculated pleural effusion moderate to large. Exudative. Cultures positive for S. pneumoniae. CTS was consulted. Status post VATS procedure 11/03/[address] Walden. Operative note reviewed. Loculations and murky pleural fluid noted intra-op. Cultures negative. Pathology negative for malignancy. Chest tube removed 11/07/[address] Repeat [address] chest Sunday showed improvement in the empyema and pneumonia. Continue Rocephin 2 grams IV daily. Duration of treatment depends on the clinical picture, but likely 4 weeks. At that point, we will repeat imaging and evaluate if switching to PO antibiotics is appropriate. Consult VAT for midline placement. Will need weekly CBC and BUN/Cr. Will need weekly midline care. Follow up with ID 11/26/17 at 0920. (4) Acute respiratory failure with hypoxia Current Visit: Yes Status: Resolved Likely secondary to PNA and empyema. Improved. Management per the primary team. (5) Atrial fibrillation with rapid ventricular response Current Visit: Yes Status: Resolved Likely secondary to sepsis. Resolved. Management per the primary team. (6) Pelvic mass Current Visit: Yes Status: Acute Etiology not entirely clear, but concerning for malignancy. Pelvic ultrasound shows large pelvic mass. Pending CT-guided biopsy this morning. Recommend [employer] Hem/Onc referral as an outpatient. (7) Diabetes Current Visit: Yes Status: Chronic Recommend aggresive glucose monitoring and control. Management per the primary team. Qualifiers: Diabetes mellitus type: type 2 Diabetes mellitus intermediate insulin use: without intermediate use Diabetes mellitus complication status: with hyperglycemia Qualified Code(s): E11.65 - Type 2 diabetes mellitus with hyperglycemia (8) Oral lesion Current Visit: Yes Status: Acute Location: Upper and lower lips. HSV PCR negative. Continue supportive care. - Subjective Interval history: Patient seen and examined. No acute events noted overnight. Patient states she feels a little better today since she was able to get some sleep last night. Pending CT-guided biopsy of pelvic mass today per IR. Denies fevers, chills, or rigors. Denies chest pain. States she had some shortness of breath on dyspnea and continues to have a cough productive of thick white sputum. Denies nausea, vomiting, or diarrhea. Reports soft stools. Denies. Denies abdominal pain or urinary complaints. Is currently NPO, but feels hungry. States lip lesions are better. Denies oral thrush or skin lesions. Infect Dis PN-Objective Data - Labs CBC & Chem 7: 11/14/17 05:13 11/14/17 05:13 Labs: Laboratory Results - last 24 hr 11/11/17 11/12/17 11/12/17 19:47 11:26 15:58 POC Glucose 135 H 91 157 H 11/12/17 19:53 POC Glucose 107 H Cultures: Cultures 11/09/17 08:37 Blood Culture - Preliminary Peripheral Venipuncture No growth. 11/09/17 08:35 Blood Culture - Preliminary Peripheral Venipuncture No growth. 11/03/17 09:45 Anaerobic Culture - Final Pleural Fluid No anaerobes were recovered. 11/03/17 09:45 Anaerobic Culture - Final Pleural Fluid No anaerobes were recovered. 10/31/17 13:09 Body Fluid Culture - Final Pleural Fluid Streptococcus pneumoniae 11/03/17 09:45 Gram Stain - Final Pleural Fluid Body Fluid Culture - Final 11/03/17 09:45 Body Fluid Culture - Final Pleural Fluid 10/30/17 16:15 Blood Culture - Final Peripheral Venipuncture No growth. 10/30/17 16:15 Blood Culture - Final Peripheral Venipuncture No growth. Serology 11/11/17 11/10/17 11/09/17 Range/Units 14:42 03:00 17:00 Urine Color Yellow (Yellow) Urine Clarity Clear (Clear) Urine pH 6.5 (5.0-8.0) pH Units Ur Specific [place] 1.022 (1.010-1.025) Urine Protein Trace (Neg-Trace) mg/dL Urine Glucose (UA) Normal (Normal) mg/dL Urine Ketones Negative (Negative) mg/dL Urine Blood Negative (Negative) Urine Nitrite Negative (Negative) Urine Bilirubin Negative (Negative) Urine Urobilinogen Normal (Normal) mg/dL Ur Leukocyte Esterase Negative (Negative) Urine Microscopic RBC 15-30 H (0-3) per hpf Urine Microscopic WBC 3-5 H (0-3) per hpf Ur Squamous Epith Cells Many H (None-Few) per lpf Urine Bacteria None Seen (None-Few) per hpf Hyaline Casts None Seen (None-Few) per lpf Ur Culture Indicated? NO (NO) Pleural Fluid Volume mL Pleural Appearance (Clear) Pleural pH (No Ref Range) pH Units Pleural RBC (0.000 - 0.002) M/mcL Pleural Tot Nuc Cell (0-1000) TNC/mcL Pleural Neutrophils % Pleural Band Neuts Pleural Eosinophils Pleural Basophils Pleural Lymphocytes % % Pleural Monocytes % % Pleural Other Cells % % Pleural Total Protein (No Ref Range) g/dL Pleural LDH (No Ref Range) Units/L Pleural Glucose (No Ref Range) mg/dL Pleural Cholesterol (No Ref Range) mg/dL Pleural Triglycerides (No Ref Range) mg/dL Stool Occult Blood Negative (Negative) Chlamy pneumoniae PCR Not Detected (Not Detect) Adenovirus (PCR) Not Detected (Not Detect) B. 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 Human Metapneumovir PCR Not Detected (Not Detect) Influenza A (H1) PCR Not Detected (Not Detect) Influ A (H1N1/09) PCR Not Detected (Not Detect) Influenza A (H3) PCR Not Detected (Not Detect) Influenza A Untype (PCR) Not Detected (Not Detect) Influenza Type B (PCR) Not Detected (Not Detect) M.pneumoniae DNA (PCR) Not Detected (Not Detect) Parainfluenza 1 (PCR) Not Detected (Not Detect) Parainfluenza 2 (PCR) Not Detected (Not Detect) Parainfluenza 3 (PCR) Not Detected (Not Detect) Parainfluenza 4 (PCR) Not Detected (Not Detect) RSV (PCR) Not Detected (Not Detect) Entero/Rhino (PCR) Not Detected (Not Detect) 11/09/17 11/08/17 10/31/17 Range/Units 11:40 16:30 13:09 Urine Color (Yellow) Urine Clarity (Clear) Urine pH (5.0-8.0) pH Units Ur Specific [place] (1.010-1.025) Urine Protein (Neg-Trace) mg/dL Urine Glucose (UA) (Normal) mg/dL Urine Ketones (Negative) mg/dL Urine Blood (Negative) Urine Nitrite (Negative) Urine Bilirubin (Negative) Urine Urobilinogen (Normal) mg/dL Ur Leukocyte Esterase (Negative) Urine Microscopic RBC (0-3) per hpf Urine Microscopic WBC (0-3) per hpf Ur Squamous Epith Cells (None-Few) per lpf Urine Bacteria (None-Few) per hpf Hyaline Casts (None-Few) per lpf Ur Culture Indicated? (NO) Pleural Fluid Volume mL Pleural Appearance (Clear) Pleural pH (No Ref Range) pH Units Pleural RBC (0.000 - 0.002) M/mcL Pleural Tot Nuc Cell (0-1000) TNC/mcL Pleural Neutrophils % Pleural Band Neuts Pleural Eosinophils Pleural Basophils Pleural Lymphocytes % % Pleural Monocytes % % Pleural Other Cells % % Pleural Total Protein 4.2 (No Ref Range) g/dL Pleural LDH 793 (No Ref Range) Units/L Pleural Glucose < 10 (No Ref Range) mg/dL Pleural Cholesterol 65 (No Ref Range) mg/dL Pleural Triglycerides 101 (No Ref Range) mg/dL Stool Occult Blood (Negative) Chlamy pneumoniae PCR (Not Detect) Adenovirus (PCR) (Not Detect) B. pertussis DNA (PCR) (Not Detect) B.parapertussis DNA PCR (Not Detect) Coronavirus OC43 (PCR) (Not Detect) Coronavirus HKU1 (PCR) (Not Detect) Coronavirus 229E (PCR) (Not Detect) Coronavirus NL63 (PCR) (Not Detect) Herpes Simplex Source LIP LESIONS Lip lesions HSV I Not Detected TNP HSV II Not Detected TNP Human Metapneumovir PCR (Not Detect) Influenza A (H1) PCR (Not Detect) Influ A (H1N1/09) PCR (Not Detect) Influenza A (H3) PCR (Not Detect) Influenza A Untype (PCR) (Not Detect) Influenza Type B (PCR) (Not Detect) M.pneumoniae DNA (PCR) (Not Detect) Parainfluenza 1 (PCR) (Not Detect) Parainfluenza 2 (PCR) (Not Detect) Parainfluenza 3 (PCR) (Not Detect) Parainfluenza 4 (PCR) (Not Detect) RSV (PCR) (Not Detect) Entero/Rhino (PCR) (Not Detect) 10/31/17 Range/Units 13:09 Urine Color (Yellow) Urine Clarity (Clear) Urine pH (5.0-8.0) pH Units Ur Specific [place] (1.010-1.025) Urine Protein (Neg-Trace) mg/dL Urine Glucose (UA) (Normal) mg/dL Urine Ketones (Negative) mg/dL Urine Blood (Negative) Urine Nitrite (Negative) Urine Bilirubin (Negative) Urine Urobilinogen (Normal) mg/dL Ur Leukocyte Esterase (Negative) Urine Microscopic RBC (0-3) per hpf Urine Microscopic WBC (0-3) per hpf Ur Squamous Epith Cells (None-Few) per lpf Urine Bacteria (None-Few) per hpf Hyaline Casts (None-Few) per lpf Ur Culture Indicated? (NO) Pleural Fluid Volume 22.0 mL Pleural Appearance Cloudy A (Clear) Pleural pH 6.40 (No Ref Range) pH Units Pleural RBC 0.005 H (0.000 - 0.002) M/mcL Pleural Tot Nuc Cell > 58881 H (0-1000) TNC/mcL Pleural Neutrophils 75.0 % Pleural Band Neuts Test Not Performed Pleural Eosinophils Test Not Performed Pleural Basophils Test Not Performed Pleural Lymphocytes % 23.0 % Pleural Monocytes % 1.0 % Pleural Other Cells % 1.0 % Pleural Total Protein (No Ref Range) g/dL Pleural LDH (No Ref Range) Units/L Pleural Glucose (No Ref Range) mg/dL Pleural Cholesterol (No Ref Range) mg/dL Pleural Triglycerides (No Ref Range) mg/dL Stool Occult Blood (Negative) Chlamy pneumoniae PCR (Not Detect) Adenovirus (PCR) (Not Detect) B. 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 Stable size of a large mixed cystic and solid mass in the pelvis, which may arise from the right adnexa. A small amount of adjacent simple ascites is mildly increased from prior exam. A small amount of hemorrhage within the mass may be present, but there is no evidence of hemoperitoneum. 2. Omental caking may be present anteriorly along the left mid abdomen, similar to prior exam. 3. Trace partially loculated right pleural effusion, decreased from prior exam. Mild residual airspace consolidation is present in the right lower lobe. 4. Small left pleural effusion, increased from prior exam. D/ / 11/11/2017 15:29:26 Fran Guzman MD / melanie Interpreting Provider: Fran Guzman MD Pelvis Ultrasound 11/12/17 09:00 IMPRESSION: Large 20.3 cm pelvic mass is again demonstrated, better visualized in its entirety on recent CT, concerning for ovarian neoplasm. Normal appearing ovaries could not be visualized. Free pelvic fluid. Endometrium is thickened for a postmenopausal female, which can indicate endometrial hyperplasia, polyp, or carcinoma. D/ / Salvador Ortiz MD / Salvador Ortiz MD Interpreting Provider: Salvador Ortiz MD Lumbar Spine X-Ray 11/12/17 09:38 IMPRESSION: 1. Stable grade 1 anterolisthesis of L5 on S1. 2. Multilevel degenerative changes. 3. Osteopenia. 4. No acute abnormality identified. D/ / 11/12/2017 10:42:42 Marvel Workman MD / Scarlet Byrne Interpreting Provider: Marvel Workman MD Pelvis X-Ray 11/12/17 09:38 IMPRESSION: 1. No radiographic finding to account for patient's pelvic pain. D/ / Kostas Rivera MD / Kostas Rivera MD Interpreting Provider: Kostas Rivera MD Thoracic Spine X-Ray 11/12/17 09:38 IMPRESSION: 1. No radiographic finding to account for patient's back pain. D/ / Kostas Rivera MD / Kostas Rivera MD Interpreting Provider: Kostas Rivera MD Exam - Constitutional Vitals: Temp Pulse Resp BP Pulse Ox 98.8 F 73 16 168/76 95 11/13/17 06:44 11/13/17 06:44 11/13/17 06:44 11/13/17 06:44 11/13/17 06:44 General appearance: average body habitus, cooperative, no acute distress - Head Head exam: Present: atraumatic, normal inspection, normocephalic - Eye Eye exam: Present: EOMI, normal appearance, PERRL Pupils: Present: normal accommodation - ENT ENT exam: Present: mucous membranes moist Additional comments: Scabbed lip lesions noted to the upper and lower lips. - Neck Neck exam: Present: normal inspection - Respiratory Respiratory exam: Present: CTAB. Absent: rales, respiratory distress, rhonchi, wheezes Additional comments: Surgical site noted to the right lateral chest wall without redness, warmth, or drainage. No tenderness or crepitus noted. - Cardiovascular Cardiovascular exam: Present: RRR, +S1, +S2 - GI/Abdominal GI/Abdominal exam: Present: distended, normal bowel sounds, soft, tenderness ( Generalized) - Extremities Exam Extremities exam: Present: normal inspection. Absent: joint swelling, pedal edema, tenderness - Neurological Exam Neurological exam: Present: alert, oriented X3, no focal deficits - Psychiatric Psychiatric exam: Present: normal affect, normal mood - Skin Skin exam: Present: dry, intact, normal color, warm - Additional findings Additional findings: Midline noted to the left upper extremity with transparent dressing C/D/I. - VTE Documentation of Mechanical Device: Intermittent pneumatic compression device Consult Discharge Plan - Plan Additional Instructions: She will need to have a follow up set up with [facility]/onc (Dr. Talia Riley, ). Referral sent to this office. This office will more than likely call Zoë Cortez with Appt. Date & Time. Referrals: Manuelito Henry MD [Partnered Physician] - 12/06/17 2:20 pm Ada Gupta, [employer] [Advanced Practice Nurse] - 11/26/17 9:20 am Melo Vega DO [Primary Care Provider] - 11/15/17 2:15 pm Prescriptions: Methocarbamol [Robaxin] 500 mg PO Q6HR PRN #30 tablet PRN Reason: Muscle Spasm Apixaban [Eliquis] 5 mg PO BID #60 tablet Ceftriaxone Sodium [Ceftriaxone] 2 gm IV DAILY 13 Days #13 vial.port Diltiazem CD (24hr) [Cardizem CD] 120 mg PO DAILY #30 cap.er.24h Docusate [Colace] 100 mg PO BID #30 capsule Metoprolol [Lopressor] 25 mg PO BID #60 tablet Zolpidem [Ambien] 5 mg PO HS PRN 5 Days #5 tablet PRN Reason: Insomnia - Attending Attestation I examined this patient and my medical decision-making was reviewed with the Resident Physician. I agree with the documented findings, disposition and treatment plan as described except to the extent set forth below.
[2017-11-13] MEDS: cefTRIAXone 2,000 MG in Water for inj. (sterile) 20 ML 20 ML IVP SCH (12:26)
[2017-11-14] MEDS: *HR* Heparin 5,000 UNIT/ML VIAL SQ SCH (05:01)
[2017-11-14 05:58] LABS: Basophils # 0.1 K/mcL (0.0-0.2); Basophils % 0.8 %; Eosinophils # 0.2 K/mcL (0.0-0.6); Eosinophils % 2.4 %; Hematocrit 28.9 % (35.3-44.9); Hemoglobin 9.5 g/dL (11.5-15.4); Immature Granulocytes % 1.4 % (0-4); Lymphocytes # 1.4 K/mcL (0.6-4.6); Mean Corpuscular HGB Conc 32.9 g/dL (31.6-35.5); Mean Corpuscular Hemoglobin 30.3 pg (28.0-33.3); Mean Platelet Volume 11.4 fL (9.4-12.4); Monocytes # 0.8 K/mcL (0.0-1.3); Monocytes % 9.6 %; Neutrophils # 5.4 K/mcL (1.6-8.9); Platelet Count 405 K/mcL (140-400); Red Blood Count 3.14 M/mcL (3.82-4.97); Red Cell Distribution Width 13.8 % (11.5-14.5); Segmented Neutrophils % 67.8 %
[2017-11-14 06:12] LABS: BUN/Creatinine Ratio 23 (6-26); Blood Urea Nitrogen 11 mg/dL (8-23); Calcium 7.9 mg/dL (8.6-10.3); Carbon Dioxide 26 mEq/L (23-29); Chloride 107 mEq/L (98-107); Glucose 121 mg/dL (70-105); Magnesium 2.1 mg/dL (1.6-2.6); Osmolality,Calculated 287 (280-300); Potassium 4.1 mEq/L (3.5-5.1); Sodium 138 mEq/L (136-145); eGFR For African Americans > 60 (> 60); eGFR For Non-African Americans > 60 (> 60)
[2017-11-14] MEDS: Acetaminophen 325 MG TABLET PO PRN (06:38)
[2017-11-14] MEDS: Famotidine 20 MG TABLET PO PRN (06:40)
[2017-11-14 06:52] VITALS: BP 159/68
[2017-11-14] MEDS: Insulin LISPRO 300 UNITS/3 ML VIAL SQ SCH ×2 (08:53→12:51)
[2017-11-14] MEDS: Diltiazem CD (24hr) 120 MG CAPSULE PO SCH (08:58)
[2017-11-14] MEDS: Cholecalciferol (D-3) 1,000 UNIT TABLET PO SCH (08:58)
--- NOTE | 2017-11-14 10:25 | Internal Med Progress Note ---
Date of Encounter: 11/14/17 Time of Encounter: 10:24 - Assessment and plan (1) Acute respiratory failure with hypoxia Current Visit: Yes Status: Acute (2) Empyema of right pleural space Current Visit: Yes Status: Acute (3) Pelvic mass Current Visit: Yes Status: Acute (4) Essential hypertension Current Visit: Yes Status: Chronic (5) A-fib Current Visit: Yes Status: Chronic Qualifiers: Atrial fibrillation type: paroxysmal Qualified Code(s): I48.0 - Paroxysmal atrial fibrillation (6) Sepsis Current Visit: Yes Status: Resolved Qualifiers: Sepsis type: Pneumococcus Qualified Code(s): A40.3 - Sepsis due to Streptococcus pneumoniae (7) Anemia Current Visit: Yes Status: Suspected Qualifiers: Anemia type: other cause Other causes of anemia: chronic disease, other Qualified Code(s): D63.8 - Anemia in other chronic diseases classified elsewhere (8) Ovarian mass, right Current Visit: Yes Status: Acute - Time Spent With Patient Total time spent is greater than 50% in coordination of care (as documented) at patient's floor/unit and/or counseling patient: - Subjective Interval history: No acute events. Feels well. Went for biopsy late yesterday evening and discharged pushed till today. Afebrile. - Constitutional Vitals: Temp Pulse Resp BP Pulse Ox 97.9 F 77 17 159/68 93 11/14/17 06:48 11/14/17 06:48 11/14/17 06:48 11/14/17 06:48 11/14/17 06:48 General appearance: Present: cooperative, A&O X 3, pleasant, answers questions appropriately Exam: GEN: NAD CVS: RRR. S1, S2, No m/r/g RESP: Diminished at the bases ABD: Soft, generalized abdominal tenderness and distention, no rebound, +BS EXT: No edema. 2+ DP. No rashes NEURO: Nonfocal Internal Medicine: Result - Labs CBC & Chem 7: 11/14/17 05:13 11/14/17 05:13 Labs: Short CBC 11/14/17 Range/Units 05:13 WBC 8.0 (4.3-11.1) K/mcL Hgb 9.5 L (11.5-15.4) g/dL Hct 28.9 L (35.3-44.9) % Plt Count 405 H (140-400) K/mcL Neutrophils # 5.4 (1.6-8.9) K/mcL BMP 11/14/17 05:13 Sodium 138 Potassium 4.1 Chloride 107 Carbon Dioxide 26 BUN 11 Creatinine 0.48 L Glucose 121 H Calcium 7.9 L - ABG Interpretation ABG results: ABG ABG pH 7.36 pH Units (7.32-7.45) 11/04/17 06:06 ABG pCO2 58 mmHg (35-45) H 11/04/17 06:06 ABG pO2 95 mmHg (85-104) 11/04/17 06:06 ABG O2 Saturation 97 % (95-98) 11/04/17 06:06 PT/INR, D-dimer PT 14.9 Seconds (9.4-12.1) H 11/08/17 03:24 - Impressions Impressions Abdomen Biopsy CT 11/13/17 00:00 IMPRESSION: Successful CT guided core biopsy abdominal mass. D/ / Zeferino Salamanca MD / Zeferino Salamanca MD Interpreting Provider: Zeferino Salamanca MD - VTE Documentation of Mechanical Device: Intermittent pneumatic compression device Consult Discharge Plan - Plan Additional Instructions: She will need to have a follow up set up with [facility]/onc (Dr. Talia Riley, ). Referrals: Manuelito Henry MD [Partnered Physician] - 12/06/17 2:20 pm Ada Gupta CNP [Advanced Practice Nurse] - 11/26/17 9:20 am Melo Vega DO [Primary Care Provider] - 11/15/17 2:15 pm Prescriptions: Methocarbamol [Robaxin] 500 mg PO Q6HR PRN #30 tablet PRN Reason: Muscle Spasm Apixaban [Eliquis] 5 mg PO BID #60 tablet Ceftriaxone Sodium [Ceftriaxone] 2 gm IV DAILY 13 Days #13 vial.port Diltiazem CD (24hr) [Cardizem CD] 120 mg PO DAILY #30 cap.er.24h Docusate [Colace] 100 mg PO BID #30 capsule Metoprolol [Lopressor] 25 mg PO BID #60 tablet Zolpidem [Ambien] 5 mg PO HS PRN 5 Days #5 tablet PRN Reason: Insomnia
--- NOTE | 2017-11-14 11:14 | Infectious Disease Progress No ---
Date of Encounter: 11/14/17 Time of Encounter: 11:12 - Assessment and Plan (1) Sepsis Current Visit: Yes Status: Resolved Severe sepsis: The patient had two SIRS criteria plus lactic acidosis. Likely secondary to empyema and bacteremia. Resolved. Afebrile. Tachycardia and leukocytosis have resolved. Blood cultures drawn 10/30/17 were positive 2/2 sets for S. pneumoniae. Repeat blood cultures drawn 10/30/17 after initiation of antibiotics are negative 2/2 sets. Qualifiers: Sepsis type: Pneumococcus Qualified Code(s): A40.3 - Sepsis due to Streptococcus pneumoniae (2) Bacteremia due to Streptococcus pneumoniae Current Visit: Yes Status: Resolved Causative organism: Strep pneumoniae. Source: PNA and empyema. Blood cultures drawn 10/30/17 x 2 sets at [place] are positive 2/2 sets. Repeat blood cultures drawn 10/30/17 after antibiotics were initiated were negative 2/2 sets. No endocarditis stigmata noted on exam. Low index of suspicion for IE. TTE negative for vegetations. Continue Rocephin 2 grams IV daily. Has documented Keflex allergy, but patient denies known allergies and seems to be tolerating Rocephin without a problem. Duration of treatment depends on the clinical picture, but she will likely require a prolonged course of IV antibiotics for empyema. (3) Empyema of right pleural space Current Visit: Yes Status: Acute Causative organism: S. pneumoniae. Likely secondary to pneumonia. CXR showed large right pleural effusion with right sided airspace disease concerning for atelectasis vs. PNA. CT of the chest showed large loculated pleural effusion and dense consolidation of the right lower lobe, concerning for PNA vs. malignancy. IR consulted. Status post chest tube placement 10/31/17 with ~20ml serous fluid drained. Pulmonology team consulted. Attempted TPA administration via CT to break up loculations, but repeat CT of the chest 11/02/17 showed persistent loculated pleural effusion moderate to large. Exudative. Cultures positive for S. pneumoniae. CTS was consulted. Status post VATS procedure 11/03/[address] Walden. Operative note reviewed. Loculations and murky pleural fluid noted intra-op. Cultures negative. Pathology negative for malignancy. Chest tube removed 11/07/[address] Repeat [address] chest Sunday showed improvement in the empyema and pneumonia. Continue Rocephin 2 grams IV daily. Duration of treatment depends on the clinical picture, but likely 4 weeks. At that point, we will repeat imaging and evaluate if switching to PO antibiotics is appropriate. Consult VAT for midline placement. Will need weekly CBC and BUN/Cr. Will need weekly midline care. Follow up with ID 11/26/17 at 0920. (4) Acute respiratory failure with hypoxia Current Visit: Yes Status: Resolved Likely secondary to PNA and empyema. Improved. Management per the primary team. (5) Atrial fibrillation with rapid ventricular response Current Visit: Yes Status: Resolved Likely secondary to sepsis. Resolved. Management per the primary team. (6) Pelvic mass Current Visit: Yes Status: Acute Etiology not entirely clear, but concerning for malignancy. Pelvic ultrasound shows large pelvic mass. Status post biopsy yesterday. Pathology is pending. Recommend [facility] Hem/Onc referral as an outpatient. (7) Diabetes Current Visit: Yes Status: Chronic Recommend aggresive glucose monitoring and control. Management per the primary team. Qualifiers: Diabetes mellitus type: type 2 Diabetes mellitus residential insulin use: without longwall foreman use Diabetes mellitus complication status: with hyperglycemia Qualified Code(s): E11.65 - Type 2 diabetes mellitus with hyperglycemia (8) Oral lesion Current Visit: Yes Status: Acute Location: Upper and lower lips. HSV PCR negative. Continue supportive care. - Subjective Interval history: Patient seen and examined. No acute events noted overnight. Patient states she feels a little better today. Status post CT-guided biopsy of pelvic mass yesterday per IR. Denies fevers, chills, or rigors. Denies chest pain. States she had some shortness of breath on dyspnea and continues to have a cough productive of thick white/clear sputum. Denies nausea, vomiting, or diarrhea. Reports soft stools. Denies abdominal pain or urinary complaints.STates her appetite comes and goes and she ate some cereal and a banana this morning. States lip lesions are better. Denies oral thrush or skin lesions. Complains of lower back pain. Infect Dis PN-Objective Data - Labs CBC & Chem 7: 11/14/17 05:13 11/14/17 05:13 Labs: Laboratory Results - last 24 hr 11/13/17 11/13/17 11/13/17 10:43 12:33 17:03 WBC RBC Hgb Hct MCV MCH MCHC RDW Plt Count MPV Immature Gran % Seg Neutrophils % Lymphocytes % Monocytes % Eosinophils % Basophils % Neutrophils # Lymphocytes # Monocytes # Eosinophils # Basophils # Sodium Potassium Chloride Carbon Dioxide BUN Creatinine Est GFR ( Amer) Est GFR (Non-Af Amer) BUN/Creatinine Ratio Glucose POC Glucose 97 91 155 H Calculated Osmolality Calcium Magnesium 11/13/17 11/14/17 11/14/17 19:42 05:13 05:13 WBC 8.0 RBC 3.14 L Hgb 9.5 L Hct 28.9 L MCV 92.0 MCH 30.3 MCHC 32.9 RDW 13.8 Plt Count 405 H MPV 11.4 Immature Gran % 1.4 Seg Neutrophils % 67.8 Lymphocytes % 18.0 Monocytes % 9.6 Eosinophils % 2.4 Basophils % 0.8 Neutrophils # 5.4 Lymphocytes # 1.4 Monocytes # 0.8 Eosinophils # 0.2 Basophils # 0.1 Sodium 138 Potassium 4.1 Chloride 107 Carbon Dioxide 26 BUN 11 Creatinine 0.48 L Est GFR ( Amer) > 60 Est GFR (Non-Af Amer) > 60 BUN/Creatinine Ratio 23 Glucose 121 H POC Glucose 117 H Calculated Osmolality 287 Calcium 7.9 L Magnesium 2.1 Cultures: Cultures 11/09/17 08:37 Blood Culture - Preliminary Peripheral Venipuncture No growth. 11/09/17 08:35 Blood Culture - Preliminary Peripheral Venipuncture No growth. 11/03/17 09:45 Anaerobic Culture - Final Pleural Fluid No anaerobes were recovered. 11/03/17 09:45 Anaerobic Culture - Final Pleural Fluid No anaerobes were recovered. 10/31/17 13:09 Body Fluid Culture - Final Pleural Fluid Streptococcus pneumoniae 11/03/17 09:45 Gram Stain - Final Pleural Fluid Body Fluid Culture - Final 11/03/17 09:45 Body Fluid Culture - Final Pleural Fluid 10/30/17 16:15 Blood Culture - Final Peripheral Venipuncture No growth. 10/30/17 16:15 Blood Culture - Final Peripheral Venipuncture No growth. Serology 11/11/17 11/10/17 11/09/17 Range/Units 14:42 03:00 17:00 Urine Color Yellow (Yellow) Urine Clarity Clear (Clear) Urine pH 6.5 (5.0-8.0) pH Units Ur Specific [place] 1.022 (1.010-1.025) Urine Protein Trace (Neg-Trace) mg/dL Urine Glucose (UA) Normal (Normal) mg/dL Urine Ketones Negative (Negative) mg/dL Urine Blood Negative (Negative) Urine Nitrite Negative (Negative) Urine Bilirubin Negative (Negative) Urine Urobilinogen Normal (Normal) mg/dL Ur Leukocyte Esterase Negative (Negative) Urine Microscopic RBC 15-30 H (0-3) per hpf Urine Microscopic WBC 3-5 H (0-3) per hpf Ur Squamous Epith Cells Many H (None-Few) per lpf Urine Bacteria None Seen (None-Few) per hpf Hyaline Casts None Seen (None-Few) per lpf Ur Culture Indicated? NO (NO) Pleural Fluid Volume mL Pleural Appearance (Clear) Pleural pH (No Ref Range) pH Units Pleural RBC (0.000 - 0.002) M/mcL Pleural Tot Nuc Cell (0-1000) TNC/mcL Pleural Neutrophils % Pleural Band Neuts Pleural Eosinophils Pleural Basophils Pleural Lymphocytes % % Pleural Monocytes % % Pleural Other Cells % % Pleural Total Protein (No Ref Range) g/dL Pleural LDH (No Ref Range) Units/L Pleural Glucose (No Ref Range) mg/dL Pleural Cholesterol (No Ref Range) mg/dL Pleural Triglycerides (No Ref Range) mg/dL Stool Occult Blood Negative (Negative) Chlamy pneumoniae PCR Not Detected (Not Detect) Adenovirus (PCR) Not Detected (Not Detect) B. 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 Human Metapneumovir PCR Not Detected (Not Detect) Influenza A (H1) PCR Not Detected (Not Detect) Influ A (H1N1/09) PCR Not Detected (Not Detect) Influenza A (H3) PCR Not Detected (Not Detect) Influenza A Untype (PCR) Not Detected (Not Detect) Influenza Type B (PCR) Not Detected (Not Detect) M.pneumoniae DNA (PCR) Not Detected (Not Detect) Parainfluenza 1 (PCR) Not Detected (Not Detect) Parainfluenza 2 (PCR) Not Detected (Not Detect) Parainfluenza 3 (PCR) Not Detected (Not Detect) Parainfluenza 4 (PCR) Not Detected (Not Detect) RSV (PCR) Not Detected (Not Detect) Entero/Rhino (PCR) Not Detected (Not Detect) 11/09/17 11/08/17 10/31/17 Range/Units 11:40 16:30 13:09 Urine Color (Yellow) Urine Clarity (Clear) Urine pH (5.0-8.0) pH Units Ur Specific [place] (1.010-1.025) Urine Protein (Neg-Trace) mg/dL Urine Glucose (UA) (Normal) mg/dL Urine Ketones (Negative) mg/dL Urine Blood (Negative) Urine Nitrite (Negative) Urine Bilirubin (Negative) Urine Urobilinogen (Normal) mg/dL Ur Leukocyte Esterase (Negative) Urine Microscopic RBC (0-3) per hpf Urine Microscopic WBC (0-3) per hpf Ur Squamous Epith Cells (None-Few) per lpf Urine Bacteria (None-Few) per hpf Hyaline Casts (None-Few) per lpf Ur Culture Indicated? (NO) Pleural Fluid Volume mL Pleural Appearance (Clear) Pleural pH (No Ref Range) pH Units Pleural RBC (0.000 - 0.002) M/mcL Pleural Tot Nuc Cell (0-1000) TNC/mcL Pleural Neutrophils % Pleural Band Neuts Pleural Eosinophils Pleural Basophils Pleural Lymphocytes % % Pleural Monocytes % % Pleural Other Cells % % Pleural Total Protein 4.2 (No Ref Range) g/dL Pleural LDH 793 (No Ref Range) Units/L Pleural Glucose < 10 (No Ref Range) mg/dL Pleural Cholesterol 65 (No Ref Range) mg/dL Pleural Triglycerides 101 (No Ref Range) mg/dL Stool Occult Blood (Negative) Chlamy pneumoniae PCR (Not Detect) Adenovirus (PCR) (Not Detect) B. pertussis DNA (PCR) (Not Detect) B.parapertussis DNA PCR (Not Detect) Coronavirus OC43 (PCR) (Not Detect) Coronavirus HKU1 (PCR) (Not Detect) Coronavirus 229E (PCR) (Not Detect) Coronavirus NL63 (PCR) (Not Detect) Herpes Simplex Source LIP LESIONS Lip lesions HSV I Not Detected TNP HSV II Not Detected TNP Human Metapneumovir PCR (Not Detect) Influenza A (H1) PCR (Not Detect) Influ A (H1N1/09) PCR (Not Detect) Influenza A (H3) PCR (Not Detect) Influenza A Untype (PCR) (Not Detect) Influenza Type B (PCR) (Not Detect) M.pneumoniae DNA (PCR) (Not Detect) Parainfluenza 1 (PCR) (Not Detect) Parainfluenza 2 (PCR) (Not Detect) Parainfluenza 3 (PCR) (Not Detect) Parainfluenza 4 (PCR) (Not Detect) RSV (PCR) (Not Detect) Entero/Rhino (PCR) (Not Detect) 10/31/17 Range/Units 13:09 Urine Color (Yellow) Urine Clarity (Clear) Urine pH (5.0-8.0) pH Units Ur Specific [place] (1.010-1.025) Urine Protein (Neg-Trace) mg/dL Urine Glucose (UA) (Normal) mg/dL Urine Ketones (Negative) mg/dL Urine Blood (Negative) Urine Nitrite (Negative) Urine Bilirubin (Negative) Urine Urobilinogen (Normal) mg/dL Ur Leukocyte Esterase (Negative) Urine Microscopic RBC (0-3) per hpf Urine Microscopic WBC (0-3) per hpf Ur Squamous Epith Cells (None-Few) per lpf Urine Bacteria (None-Few) per hpf Hyaline Casts (None-Few) per lpf Ur Culture Indicated? (NO) Pleural Fluid Volume 22.0 mL Pleural Appearance Cloudy A (Clear) Pleural pH 6.40 (No Ref Range) pH Units Pleural RBC 0.005 H (0.000 - 0.002) M/mcL Pleural Tot Nuc Cell > 11875 H (0-1000) TNC/mcL Pleural Neutrophils 75.0 % Pleural Band Neuts Test Not Performed Pleural Eosinophils Test Not Performed Pleural Basophils Test Not Performed Pleural Lymphocytes % 23.0 % Pleural Monocytes % 1.0 % Pleural Other Cells % 1.0 % Pleural Total Protein (No Ref Range) g/dL Pleural LDH (No Ref Range) Units/L Pleural Glucose (No Ref Range) mg/dL Pleural Cholesterol (No Ref Range) mg/dL Pleural Triglycerides (No Ref Range) mg/dL Stool Occult Blood (Negative) Chlamy pneumoniae PCR (Not Detect) Adenovirus (PCR) (Not Detect) B. 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 D/ / Zeferino Salamanca MD / Zeferino Salamanca MD Interpreting Provider: Zeferino Salamanca MD Exam - Constitutional Vitals: Temp Pulse Resp BP Pulse Ox 97.9 F 77 17 159/68 93 11/14/17 06:48 11/14/17 06:48 11/14/17 06:48 11/14/17 06:48 11/14/17 06:48 General appearance: average body habitus, cooperative, no acute distress - Head Head exam: Present: atraumatic, normal inspection, normocephalic - Eye Eye exam: Present: EOMI, normal appearance, PERRL Pupils: Present: normal accommodation - ENT ENT exam: Present: mucous membranes moist Additional comments: Scabbed lip lesions noted to be improved. - Neck Neck exam: Present: normal inspection - Respiratory Respiratory exam: Present: CTAB. Absent: rales, respiratory distress, rhonchi, wheezes Additional comments: Surgical site noted to the right lateral chest wall without erythema, warmth, drainage, tenderness, or crepitus. - Cardiovascular Cardiovascular exam: Present: RRR, +S1, +S2 - GI/Abdominal GI/Abdominal exam: Present: normal bowel sounds, soft. Absent: distended, tenderness - Extremities Exam Extremities exam: Present: normal inspection. Absent: joint swelling, pedal edema, tenderness - Neurological Exam Neurological exam: Present: alert, oriented X3, no focal deficits - Psychiatric Psychiatric exam: Present: normal affect, normal mood - Skin Skin exam: Present: dry, intact, normal color, warm - Additional findings Additional findings: Midline noted to the LUE with transparent dressing C/D/I. - VTE Documentation of Mechanical Device: Intermittent pneumatic compression device Consult Discharge Plan - Plan Additional Instructions: She will need to have a follow up set up with [facility] (Dr. Talia Riley, ). Referral sent to this office. This office will more than likely call Zoë Cortez with Appt. Date & Time. Referrals: Manuelito Henry MD [Partnered Physician] - 12/06/17 2:20 pm Ada Gupta ORTHO TECH [Advanced Practice Nurse] - 11/26/17 9:20 am Melo Vega DO [Primary Care Provider] - 11/15/17 2:15 pm Prescriptions: Methocarbamol [Robaxin] 500 mg PO Q6HR PRN #30 tablet PRN Reason: Muscle Spasm Apixaban [Eliquis] 5 mg PO BID #60 tablet Ceftriaxone Sodium [Ceftriaxone] 2 gm IV DAILY 13 Days #13 vial.port Diltiazem CD (24hr) [Cardizem CD] 120 mg PO DAILY #30 cap.er.24h Docusate [Colace] 100 mg PO BID #30 capsule Metoprolol [Lopressor] 25 mg PO BID #60 tablet Zolpidem [Ambien] 5 mg PO HS PRN 5 Days #5 tablet PRN Reason: Insomnia - Attending Attestation I examined this patient and my medical decision-making was reviewed with the Resident Physician. I agree with the documented findings, disposition and treatment plan as described except to the extent set forth below.
[2017-11-14] MEDS: cefTRIAXone 2,000 MG in Water for inj. (sterile) 20 ML 20 ML IVP SCH (12:53)
== END 2017-11-14 14:53 | DRG 871 ==
LOC: ICNU → SUATTDRO 14:55 → 2NENU 11-02 16:16 → ICNU 11-03 12:41 → 2NNU 11-06 09:04 → 2NENU 11-10 17:48
PROVIDERS: ADMIT Internal Medicine; ATTEND Internal Medicine